=== PATIENT | male | born 1945 | race Hispanic/Latino ===

== ENCOUNTER 2020-06-12 14:38 | Inpatient (IN) | payer MEDICARE, OTHER ==
[2020-06-12] VITALS (7 sets, daily range): BP systolic 89–112; BP diastolic 44–71
[~2020-06-12] VITALS: Ht 177.8 cm; Wt 71.0 kg
[~2020-06-12 14:38] MED LIST: AMLODIPINE BESY10 MG PO; DIOVAN160 MG PO; METFORMIN HCL500 M2 PO; OSTERA TABLET1 EACH PO
[2020-06-12] MEDS ORDERED: SODIUM CHLORIDE 0.9% 1000ML 1,000 ML IV STA (15:08)
[2020-06-12] MEDS: CEFTRIAXONE SOD 1 GM/NS 50 ML 50 ML IV SCH (15:10)
[2020-06-12] MEDS ORDERED: DEXAMETHASONE SOD PHOS 10 MG/1 ML VIAL IV ONE (15:15)
[2020-06-12] MEDS ORDERED: DEXAMETHASONE SOD PHOS INJ 4 MG/ML VIAL IV ONE (15:15)
[2020-06-12 15:26] LABS: BASOPHILS % 0.3 % (0.0-1.0); EOSINOPHILS % 0.1 % (0.0-6.0); HEMATOCRIT 39.7 % (38.2-49.6); LYMPHOCYTES # (AUTO) 0.6 (1.0-3.2); LYMPHOCYTES % 5.4 % (18.0-39.1); MEAN CORPUSCULAR HEMOGLOBIN 28.8 pg (28-32); MEAN CORPUSCULAR HGB CONC 32.7 g/dL (31-35); MEAN CORPUSCULAR VOLUME 87.8 fL (81-99); MONOCYTES # (AUTO) 0.5 (0.2-0.8); MONOCYTES % 4.2 % (4.4-11.3); NEUTROPHILS # (AUTO) 9.6 (2.1-6.9); NEUTROPHILS % 84.3 % (38.7-80.0); PLATELET COUNT 277 x10e3/uL (140-360); RED BLOOD COUNT 4.52 x10e6/uL (4.3-5.7); RED CELL DISTRIBUTION WIDTH 13.7 % (11.7-14.4)
[2020-06-12 15:44] LABS: ALBUMIN 2.6 g/dL (3.5-5.0); ALBUMIN/GLOBULIN RATIO 0.7 (0.8-2.0); ANION GAP 20.3 mmol/L (8-16); CALCIUM 8.7 mg/dL (8.4-10.2); CREATININE, SERUM 1.52 mg/dL (0.72-1.25); POTASSIUM 4.3 mmol/L (3.5-5.1)
[2020-06-12] MEDS: AZITHROMYCIN 500MG/NS 250 ML 250 ML IV SCH (15:45)
[2020-06-12 15:49] LABS: INR 1.15; PROTHROMBIN TIME 15.3 seconds (11.9-14.5)
[2020-06-12 15:50] LABS: CREATINE KINASE MB 0.4 ng/mL (0-5.0); PARTIAL THROMBOPLASTIN TIME 26.3 seconds (23.8-35.5)
[2020-06-12] MEDS ORDERED: HYDROCODONE/CHLORPHENIRAMINE 5 ML LIQCR PO PRN (16:15)
[2020-06-12] MEDS ORDERED: DEXTROSE 50% SYRINGE 50 ML IV PRN (16:15)
[2020-06-12] MEDS ORDERED: ALBUTEROL SULFATE HFA 8GM INHALATION AEROSOL INH PRN (16:15)
[2020-06-12] MEDS ORDERED: INSULIN REGULAR, HUMAN 100 UNIT/1 ML 3ML VIAL IV ONE (16:15)
[2020-06-12] MEDS ORDERED: ZOLPIDEM TARTRATE 5 MG TAB PO PRN (16:15)
[2020-06-12] MEDS ORDERED: INSULIN REGULAR, HUMAN 3ML VL 100 UNIT in SODIUM CHLORIDE 0.45% 100 ML 100 ML IV SCH ×2 (16:15)
[2020-06-12] MEDS: SODIUM CHLORIDE 0.9% 1000ML 1,000 ML IV SCH (16:30)
[2020-06-12] MEDS: ACETAMINOPHEN 325 MG TAB PO PRN (16:32)
[2020-06-12] MEDS: ASCORBIC ACID 500 MG TAB PO SCH (17:00)
[2020-06-12] MEDS: INSULIN REGULAR, HUMAN 3ML VL 100 UNIT in SODIUM CHLORIDE 0.9% 100 ML 100 ML IV SCH ×2 (18:19)
[2020-06-12] MEDS ORDERED: ZIPRASIDONE 20 MG VIAL IM ONE (18:37)
[2020-06-12] MEDS ORDERED: DEXMEDETOMIDINE HCL 200 MCG in SODIUM CHLORIDE 0.9% 50ML 48 ML IV PRN (19:00)
[2020-06-12] MEDS ORDERED: ENOXAPARIN SOD INJ 40 MG/0.4 ML SYR SC SCH (21:00)
[2020-06-12 21:13] LABS: NEUTROPHILS % (MANUAL) 85 % (40-74)
[2020-06-12 21:14] LABS: BAND NEUTROPHILS % (MANUAL) 5 %; LYMPHOCYTES % (MANUAL) 6 % (19-48); MONOCYTES % (MANUAL) 4 % (3.4-9.0); NUCLEATED RED BLOOD CELLS 2
[2020-06-12 21:15] LABS: GIANT PLATELETS FEW; LARGE PLATELETS FEW; PLATELET ESTIMATE ADEQUATE; PLATELET MORPHOLOGY COMMENT FEW LARGE; POLYCHROMASIA FEW
[2020-06-12] MEDS ORDERED: HALOPERIDOL LACTATE 5 MG/ML VIAL IV PRN (21:15)
[2020-06-13] VITALS (26 sets, daily range): BP systolic 91–123; BP diastolic 50–59
[2020-06-13] MEDS ORDERED: MIDAZOLAM HCL 2 MG/2 ML VIAL ONE (00:26)
[2020-06-13] MEDS: MIDAZOLAM HCL 50 MG in SODIUM CHLORIDE 0.9% 100 ML 90 ML IV PRN ×2 (01:00→21:00)
[2020-06-13] MEDS: SODIUM CHLORIDE 0.9% 1000ML 1,000 ML IV SCH (01:50)
[2020-06-13] MEDS ORDERED: NOREPINEPHRINE INJ 4MG/4ML 8 MG in DEXTROSE 5% 250ML 250 ML IV PRN (02:00)
[2020-06-13 02:25] LABS: ABG PCO2 64 mmHg (35-45); ABG PH 7.22 (7.35-7.45); ABG PO2 138 mmHg (80-105)
[2020-06-13 02:26] LABS: ABG HCO3 26 mmol/L (22-26); ABG TCO2 28
[2020-06-13] MEDS: INSULIN REGULAR, HUMAN 3ML VL 100 UNIT in SODIUM CHLORIDE 0.9% 100 ML 100 ML IV SCH ×6 (04:09→19:09)
[2020-06-13 06:38] LABS: BASOPHILS # (AUTO) 0.1 (0.0-0.1); BASOPHILS % 0.5 % (0.0-1.0); EOSINOPHILS % 0.1 % (0.0-6.0); HEMATOCRIT 37.7 % (38.2-49.6); HEMOGLOBIN 11.9 g/dL (14.0-18.0); LYMPHOCYTES # (AUTO) 0.7 (1.0-3.2); LYMPHOCYTES % 3.7 % (18.0-39.1); MEAN CORPUSCULAR HEMOGLOBIN 28.7 pg (28-32); MEAN CORPUSCULAR HGB CONC 31.6 g/dL (31-35); MONOCYTES # (AUTO) 0.7 (0.2-0.8); MONOCYTES % 3.7 % (4.4-11.3); NEUTROPHILS % 86.2 % (38.7-80.0); PLATELET COUNT 296 x10e3/uL (140-360); RED BLOOD COUNT 4.15 x10e6/uL (4.3-5.7)
[2020-06-13 06:59] LABS: CREATINE KINASE 47 IU/L (30-200)
[2020-06-13 07:22] LABS: ALBUMIN 2.3 g/dL (3.5-5.0); ALBUMIN/GLOBULIN RATIO 0.6 (0.8-2.0); ANION GAP 14.5 mmol/L (8-16); CALCIUM 7.9 mg/dL (8.4-10.2); CREATININE, SERUM 1.37 mg/dL (0.72-1.25); POTASSIUM 4.5 mmol/L (3.5-5.1)
[2020-06-13 07:30] LABS: MEAN CORPUSCULAR VOLUME 90.8 fL (81-99)
[2020-06-13 07:51] LABS: CHOL/HDL RATIO 3.9 (3.9-4.7)
[2020-06-13 08:05] LABS: CLARITY,URINE CLEAR (CLEAR); COLOR,URINE YELLOW (YELLOW)
[2020-06-13 08:06] LABS: BILIRUBIN,URINE NEGATIVE (NEGATIVE); KETONES,URINE NEGATIVE (NEGATIVE); LEUKOCYTE ESTERASE ,URINE NEGATIVE (NEGATIVE); NITRITE,URINE NEGATIVE (NEGATIVE); PROTEIN,URINE DIPSTICK 2+ (NEGATIVE); URINE UROBILINOGEN 0.2 mg/dL (0.2 - 1)
[2020-06-13 08:19] LABS: BACTERIA,URINE MANY /HPF; EPITHELIAL CELLS,URINE RARE /LPF; RBC,URINE 0-5 /HPF (0-5); WBC,URINE (MAN) 0-5 /HPF (0-5)
[2020-06-13] MEDS: DEXAMETHASONE SOD PHOS INJ 4 MG/ML VIAL IV SCH (08:20)
[2020-06-13] MEDS: MULTIVITAMINS/MINERALS TAB PO SCH (08:20)
[2020-06-13] MEDS: ZINC SULFATE 220 MG CAP PO SCH (08:20)
[2020-06-13] MEDS: ASCORBIC ACID 500 MG TAB PO SCH ×2 (08:20→16:15)
[2020-06-13] MEDS ORDERED: DEXAMETHASONE SOD PHOS 10 MG/1 ML VIAL IV SCH (09:00)
[2020-06-13] MEDS ORDERED: AMLODIPINE BESYLATE 10 MG TAB PO SCH (09:00)
[2020-06-13 12:17] LABS: LYMPHOCYTES % (MANUAL) 4 % (19-48); MONOCYTES % (MANUAL) 2 % (3.4-9.0); NEUTROPHILS % (MANUAL) 94 % (40-74); NUCLEATED RED BLOOD CELLS 2; PLATELET ESTIMATE ADEQUATE; RBC MORPHOLOGY COMMENT NORMAL
[2020-06-13 12:18] LABS: PLATELET MORPHOLOGY COMMENT FEW EDTA CLUMPING; POIKILOCYTOSIS SLIGHT; POLYCHROMASIA FEW
[2020-06-13 12:19] LABS: GIANT PLATELETS RARE; LARGE PLATELETS FEW
[2020-06-13] MEDS: CEFTRIAXONE SOD 1 GM/NS 50 ML 50 ML IV SCH (14:03)
[2020-06-13] MEDS: AZITHROMYCIN 500MG/NS 250 ML 250 ML IV SCH (14:59)
[2020-06-13 16:15] LABS: ABG HCO3 24 mmol/L (22-26); ABG PCO2 46 mmHg (35-45); ABG PH 7.33 (7.35-7.45); ABG PO2 92 mmHg (80-105); ABG TCO2 25
[2020-06-13] MEDS ORDERED: VECURONIUM BROMIDE FOR INJ 20 MG VIAL ONE (18:06)
[2020-06-13] MEDS ORDERED: SUCCINYLCHOLINE CHLORIDE 20 MG/ML 10ML VIAL ONE (18:06)
[2020-06-13] MEDS ORDERED: WATER STERILE 10 ML VIAL ONE (18:06)
[2020-06-13] MEDS ORDERED: ETOMIDATE 2 MG/ML 10 ML INJ IV ONE (18:06)
[2020-06-13] MEDS: ENOXAPARIN SOD INJ 40 MG/0.4 ML SYR SC SCH (20:53)
[2020-06-13] MEDS ORDERED: ENOXAPARIN SOD INJ 40 MG/0.4 ML SYR SC SCH (21:00)
[2020-06-14] VITALS (25 sets, daily range): BP systolic 93–126; BP diastolic 51–89
[2020-06-14 04:47] LABS: BASOPHILS # (AUTO) 0.1 (0.0-0.1); BASOPHILS % 0.4 % (0.0-1.0); HEMATOCRIT 38.4 % (38.2-49.6); HEMOGLOBIN 11.9 g/dL (14.0-18.0); LYMPHOCYTES # (AUTO) 0.4 (1.0-3.2); MEAN CORPUSCULAR HEMOGLOBIN 28.2 pg (28-32); MONOCYTES # (AUTO) 0.4 (0.2-0.8); MONOCYTES % 3.1 % (4.4-11.3); NEUTROPHILS # (AUTO) 12.7 (2.1-6.9); NEUTROPHILS % 90.4 % (38.7-80.0); PLATELET COUNT 216 x10e3/uL (140-360); RED BLOOD COUNT 4.22 x10e6/uL (4.3-5.7); RED CELL DISTRIBUTION WIDTH 14.3 % (11.7-14.4)
[2020-06-14 05:06] LABS: ALANINE AMINOTRANSFERASE 52 IU/L (0-55); ALBUMIN 2.2 g/dL (3.5-5.0); ALBUMIN/GLOBULIN RATIO 0.6 (0.8-2.0); ALKALINE PHOSPHATASE 60 IU/L (40-150); ANION GAP 11.4 mmol/L (8-16); BLOOD UREA NITROGEN 40 mg/dL (7-26); BUN/CREATININE RATIO 42 (6-25); CALCIUM 7.7 mg/dL (8.4-10.2); CARBON DIOXIDE 27 mmol/L (22-29); CHLORIDE 111 mmol/L (98-107); CREATININE, SERUM 0.95 mg/dL (0.72-1.25); EST GLOMERULAR FILTRATION RATE > 60 ML/MIN (60-); GLUCOSE 186 mg/dL (74-118); POTASSIUM 4.4 mmol/L (3.5-5.1); SODIUM 145 mmol/L (136-145)
[2020-06-14] MEDS: ZINC SULFATE 220 MG CAP PO SCH (08:50)
[2020-06-14] MEDS: DEXAMETHASONE SOD PHOS INJ 4 MG/ML VIAL IV SCH (08:50)
[2020-06-14] MEDS: MULTIVITAMINS/MINERALS TAB PO SCH (08:50)
[2020-06-14] MEDS: ASCORBIC ACID 500 MG TAB PO SCH ×2 (08:50→16:00)
[2020-06-14 09:37] LABS: ABG HCO3 28 mmol/L (22-26); ABG PCO2 46 mmHg (35-45); ABG PH 7.35 (7.35-7.45); ABG PO2 180 mmHg (80-105); ABG TCO2 30
[2020-06-14] MEDS: MIDAZOLAM HCL 50 MG in SODIUM CHLORIDE 0.9% 100 ML 90 ML IV PRN (10:59)
[2020-06-14] MEDS ORDERED: FUROSEMIDE INJ 10 MG/ML 2 ML VIAL IV ONE (11:00)
[2020-06-14 11:19] LABS: MONOCYTES % (MANUAL) 5 % (3.4-9.0); MYELOCYTES % (MANUAL) 1 % (0-0); NEUTROPHILS % (MANUAL) 94 % (40-74); NUCLEATED RED BLOOD CELLS 1
[2020-06-14 11:20] LABS: OVALOCYTES FEW; POLYCHROMASIA FEW
[2020-06-14 11:21] LABS: PLATELET ESTIMATE ADEQUATE; PLATELET MORPHOLOGY COMMENT NORMAL; POIKILOCYTOSIS SLIGHT; RBC MORPHOLOGY COMMENT NORMAL
[2020-06-14] MEDS: FENTANYL 2000MCG/NS 250 250 ML IV PRN (11:56)
[2020-06-14] MEDS ORDERED: ALBUMIN 25% 25GM 100ML 0.25 GM/ML BTL IV SCH (12:00)
[2020-06-14] MEDS: ALBUMIN 25% 12.5GM 50ML 100 ML IV SCH ×3 (12:05→23:08)
[2020-06-14] MEDS: CEFTRIAXONE SOD 1 GM/NS 50 ML 50 ML IV SCH (15:52)
[2020-06-14 16:18] LABS: ABG HCO3 28 mmol/L (22-26); ABG PCO2 38 mmHg (35-45); ABG PH 7.48 (7.35-7.45); ABG PO2 108 mmHg (80-105); ABG TCO2 29
[2020-06-14] MEDS: AZITHROMYCIN 500MG/NS 250 ML 250 ML IV SCH (16:28)
[2020-06-14] MEDS: ENOXAPARIN SOD INJ 40 MG/0.4 ML SYR SC SCH (20:27)
[2020-06-14] MEDS: INSULIN REGULAR, HUMAN 3ML VL 100 UNIT in SODIUM CHLORIDE 0.9% 100 ML 100 ML IV SCH ×2 (21:22)
[2020-06-14 22:40] LABS: ABG PCO2 49 mmHg (35-45); ABG PH 7.37 (7.35-7.45); ABG PO2 67 mmHg (80-105)
[2020-06-14 22:41] LABS: ABG HCO3 29 mmol/L (22-26); ABG TCO2 30
[2020-06-15] VITALS (24 sets, daily range): BP systolic 101–130; BP diastolic 46–76
[2020-06-15] MEDS: INSULIN REGULAR, HUMAN 3ML VL 100 UNIT in SODIUM CHLORIDE 0.9% 100 ML 100 ML IV SCH ×4 (00:03→23:26)
[2020-06-15 05:00] LABS: BASOPHILS % 0.1 % (0.0-1.0); HEMOGLOBIN 10.9 g/dL (14.0-18.0); LYMPHOCYTES # (AUTO) 0.4 (1.0-3.2); MEAN CORPUSCULAR HGB CONC 31.1 g/dL (31-35); MEAN CORPUSCULAR VOLUME 93.1 fL (81-99); MONOCYTES # (AUTO) 0.4 (0.2-0.8); MONOCYTES % 5.3 % (4.4-11.3); NEUTROPHILS # (AUTO) 6.3 (2.1-6.9); NEUTROPHILS % 87.7 % (38.7-80.0); PLATELET COUNT 140 x10e3/uL (140-360); RED BLOOD COUNT 3.76 x10e6/uL (4.3-5.7); RED CELL DISTRIBUTION WIDTH 14.2 % (11.7-14.4)
[2020-06-15 05:22] LABS: ALANINE AMINOTRANSFERASE 29 IU/L (0-55); ALBUMIN/GLOBULIN RATIO 1.1 (0.8-2.0); ALKALINE PHOSPHATASE 44 IU/L (40-150); ANION GAP 12.8 mmol/L (8-16); BLOOD UREA NITROGEN 36 mg/dL (7-26); BUN/CREATININE RATIO 41 (6-25); CALCIUM 8.1 mg/dL (8.4-10.2); CARBON DIOXIDE 29 mmol/L (22-29); CHLORIDE 114 mmol/L (98-107); CREATININE, SERUM 0.87 mg/dL (0.72-1.25); EST GLOMERULAR FILTRATION RATE > 60 ML/MIN (60-); GLUCOSE 189 mg/dL (74-118); POTASSIUM 4.8 mmol/L (3.5-5.1); SODIUM 151 mmol/L (136-145)
[2020-06-15] MEDS: MULTIVITAMINS/MINERALS TAB PO SCH (08:26)
[2020-06-15] MEDS: ZINC SULFATE 220 MG CAP PO SCH (08:26)
[2020-06-15] MEDS: ASCORBIC ACID 500 MG TAB PO SCH ×2 (08:27→16:15)
[2020-06-15] MEDS: DEXAMETHASONE SOD PHOS INJ 4 MG/ML VIAL IV SCH (08:28)
[2020-06-15 08:30] LABS: CREATINE KINASE MB 0.3 ng/mL (0-5.0)
[2020-06-15 09:15] LABS: ABG HCO3 28 mmol/L (22-26); ABG PCO2 42 mmHg (35-45); ABG PH 7.44 (7.35-7.45); ABG PO2 71 mmHg (80-105); ABG TCO2 30
[2020-06-15] MEDS ORDERED: MIDAZOLAM HCL 2 MG/2 ML VIAL ONE (10:44)
[2020-06-15] MEDS: ENOXAPARIN SOD INJ 40 MG/0.4 ML SYR SC SCH ×2 (11:03→21:09)
[2020-06-15] MEDS: FENTANYL 2000MCG/NS 250 250 ML IV PRN (12:57)
[2020-06-15] MEDS: MIDAZOLAM HCL 50 MG in SODIUM CHLORIDE 0.9% 100 ML 90 ML IV PRN (13:08)
[2020-06-15] MEDS: CEFTRIAXONE SOD 1 GM/NS 50 ML 50 ML IV SCH (15:20)
[2020-06-15] MEDS: AZITHROMYCIN 500MG/NS 250 ML 250 ML IV SCH (16:12)
[2020-06-15 20:18] LABS: ABG HCO3 29 mmol/L (22-26); ABG PCO2 43 mmHg (35-45); ABG PH 7.44 (7.35-7.45); ABG PO2 57 mmHg (80-105); ABG TCO2 31
[2020-06-16] VITALS (24 sets, daily range): BP systolic 95–131; BP diastolic 49–66
[2020-06-16] MEDS: MIDAZOLAM HCL 50 MG in SODIUM CHLORIDE 0.9% 100 ML 90 ML IV PRN ×2 (03:21→15:21)
[2020-06-16] MEDS: FENTANYL 2000MCG/NS 250 250 ML IV PRN ×2 (03:22→15:21)
[2020-06-16 05:00] LABS: HEMATOCRIT 35.2 % (38.2-49.6); HEMOGLOBIN 10.5 g/dL (14.0-18.0); LYMPHOCYTES # (AUTO) 0.2 (1.0-3.2); LYMPHOCYTES % 5.1 % (18.0-39.1); MEAN CORPUSCULAR HEMOGLOBIN 28.1 pg (28-32); MEAN CORPUSCULAR HGB CONC 29.8 g/dL (31-35); MEAN CORPUSCULAR VOLUME 94.1 fL (81-99); MONOCYTES # (AUTO) 0.2 (0.2-0.8); MONOCYTES % 3.6 % (4.4-11.3); NEUTROPHILS % 89.3 % (38.7-80.0); PLATELET COUNT 130 x10e3/uL (140-360); RED BLOOD COUNT 3.74 x10e6/uL (4.3-5.7); RED CELL DISTRIBUTION WIDTH 14.3 % (11.7-14.4)
[2020-06-16 05:18] LABS: ALANINE AMINOTRANSFERASE 23 IU/L (0-55); ALBUMIN 2.5 g/dL (3.5-5.0); ALBUMIN/GLOBULIN RATIO 0.9 (0.8-2.0); ALKALINE PHOSPHATASE 47 IU/L (40-150); ANION GAP 9.7 mmol/L (8-16); BLOOD UREA NITROGEN 34 mg/dL (7-26); BUN/CREATININE RATIO 47 (6-25); CARBON DIOXIDE 30 mmol/L (22-29); CHLORIDE 119 mmol/L (98-107); CREATININE, SERUM 0.72 mg/dL (0.72-1.25); EST GLOMERULAR FILTRATION RATE > 60 ML/MIN (60-); GLUCOSE 120 mg/dL (74-118); POTASSIUM 4.7 mmol/L (3.5-5.1); SODIUM 154 mmol/L (136-145)
[2020-06-16] MEDS: INSULIN REGULAR, HUMAN 3ML VL 100 UNIT in SODIUM CHLORIDE 0.9% 100 ML 100 ML IV SCH ×6 (08:12→17:52)
[2020-06-16] MEDS: ZINC SULFATE 220 MG CAP PO SCH (09:21)
[2020-06-16] MEDS: MULTIVITAMINS/MINERALS TAB PO SCH (09:21)
[2020-06-16] MEDS: DEXAMETHASONE SOD PHOS INJ 4 MG/ML VIAL IV SCH (09:21)
[2020-06-16] MEDS: ASCORBIC ACID 500 MG TAB PO SCH ×2 (09:21→16:15)
[2020-06-16] MEDS: ENOXAPARIN SOD INJ 40 MG/0.4 ML SYR SC SCH ×2 (09:37→20:07)
[2020-06-16] MEDS ORDERED: VECURONIUM BROMIDE FOR INJ 20 MG VIAL IV STA (09:56)
[2020-06-16 11:35] LABS: ABG HCO3 29 mmol/L (22-26); ABG PCO2 43 mmHg (35-45); ABG PH 7.43 (7.35-7.45); ABG PO2 51 mmHg (80-105)
[2020-06-16 11:36] LABS: ABG TCO2 30
[2020-06-16] MEDS: CEFTRIAXONE SOD 1 GM/NS 50 ML 50 ML IV SCH (15:22)
[2020-06-16] MEDS: AZITHROMYCIN 500MG/NS 250 ML 250 ML IV SCH (16:01)
[2020-06-16] MEDS: ACETAMINOPHEN 325 MG TAB PO PRN (21:00)
[2020-06-17] VITALS (25 sets, daily range): BP systolic 99–168; BP diastolic 50–72
[2020-06-17] MEDS: FENTANYL 2000MCG/NS 250 250 ML IV PRN (05:36)
[2020-06-17 06:12] LABS: EOSINOPHILS % 0.2 % (0.0-6.0); HEMATOCRIT 35.8 % (38.2-49.6); HEMOGLOBIN 10.7 g/dL (14.0-18.0); LYMPHOCYTES # (AUTO) 0.3 (1.0-3.2); LYMPHOCYTES % 6.4 % (18.0-39.1); MEAN CORPUSCULAR HEMOGLOBIN 29.1 pg (28-32); MEAN CORPUSCULAR HGB CONC 29.9 g/dL (31-35); MEAN CORPUSCULAR VOLUME 97.3 fL (81-99); MONOCYTES # (AUTO) 0.1 (0.2-0.8); MONOCYTES % 2.3 % (4.4-11.3); NEUTROPHILS # (AUTO) 3.9 (2.1-6.9); NEUTROPHILS % 90.4 % (38.7-80.0); PLATELET COUNT 99 x10e3/uL (140-360); RED BLOOD COUNT 3.68 x10e6/uL (4.3-5.7); RED CELL DISTRIBUTION WIDTH 14.4 % (11.7-14.4)
[2020-06-17 06:24] LABS: ALANINE AMINOTRANSFERASE 21 IU/L (0-55); ALBUMIN 2.2 g/dL (3.5-5.0); ALBUMIN/GLOBULIN RATIO 0.8 (0.8-2.0); ALKALINE PHOSPHATASE 56 IU/L (40-150); ANION GAP 10.1 mmol/L (8-16); BLOOD UREA NITROGEN 35 mg/dL (7-26); BUN/CREATININE RATIO 40 (6-25); CALCIUM 8.1 mg/dL (8.4-10.2); CARBON DIOXIDE 30 mmol/L (22-29); CHLORIDE 117 mmol/L (98-107); CREATININE, SERUM 0.88 mg/dL (0.72-1.25); EST GLOMERULAR FILTRATION RATE > 60 ML/MIN (60-); GLUCOSE 238 mg/dL (74-118); POTASSIUM 5.1 mmol/L (3.5-5.1); SODIUM 152 mmol/L (136-145)
[2020-06-17] MEDS: INSULIN REGULAR, HUMAN 3ML VL 100 UNIT in SODIUM CHLORIDE 0.9% 100 ML 100 ML IV SCH ×6 (07:58→17:55)
[2020-06-17] MEDS: DEXAMETHASONE SOD PHOS INJ 4 MG/ML VIAL IV SCH (09:14)
[2020-06-17] MEDS: MULTIVITAMINS/MINERALS TAB PO SCH (09:14)
[2020-06-17] MEDS: ASCORBIC ACID 500 MG TAB PO SCH ×2 (09:14→20:59)
[2020-06-17] MEDS: ENOXAPARIN SOD INJ 40 MG/0.4 ML SYR SC SCH ×2 (09:15→20:59)
[2020-06-17] MEDS: ZINC SULFATE 220 MG CAP PO SCH (09:15)
[2020-06-17 10:25] LABS: ABG HCO3 29 mmol/L (22-26); ABG PCO2 52 mmHg (35-45); ABG PH 7.36 (7.35-7.45); ABG PO2 74 mmHg (80-105); ABG TCO2 31
[2020-06-17] MEDS: MIDAZOLAM HCL 50 MG in SODIUM CHLORIDE 0.9% 100 ML 90 ML IV PRN ×3 (10:32)
[2020-06-17] MEDS: MEROPENEM 1GM 100 ML IV SCH ×2 (12:46→22:10)
[2020-06-17] MEDS: ACETAMINOPHEN 325 MG TAB PO PRN (19:00)
[2020-06-18] VITALS (26 sets, daily range): BP systolic 100–143; BP diastolic 53–88
[2020-06-18] MEDS: FENTANYL 2000MCG/NS 250 250 ML IV PRN (02:59)
[2020-06-18] MEDS: MEROPENEM 1GM 100 ML IV SCH (05:49)
[2020-06-18] MEDS: MIDAZOLAM HCL 50 MG in SODIUM CHLORIDE 0.9% 100 ML 90 ML IV PRN (05:54)
[2020-06-18 06:04] LABS: EOSINOPHILS % 0.2 % (0.0-6.0); HEMATOCRIT 35.5 % (38.2-49.6); HEMOGLOBIN 10.5 g/dL (14.0-18.0); LYMPHOCYTES # (AUTO) 0.2 (1.0-3.2); LYMPHOCYTES % 5.7 % (18.0-39.1); MEAN CORPUSCULAR HEMOGLOBIN 28.3 pg (28-32); MEAN CORPUSCULAR HGB CONC 29.6 g/dL (31-35); MEAN CORPUSCULAR VOLUME 95.7 fL (81-99); MONOCYTES # (AUTO) 0.2 (0.2-0.8); NEUTROPHILS # (AUTO) 3.8 (2.1-6.9); NEUTROPHILS % 89.4 % (38.7-80.0); PLATELET COUNT 121 x10e3/uL (140-360); RED BLOOD COUNT 3.71 x10e6/uL (4.3-5.7); RED CELL DISTRIBUTION WIDTH 14.3 % (11.7-14.4)
[2020-06-18 06:22] LABS: ALANINE AMINOTRANSFERASE 25 IU/L (0-55); ALBUMIN/GLOBULIN RATIO 0.6 (0.8-2.0); ALKALINE PHOSPHATASE 52 IU/L (40-150); ANION GAP 10.3 mmol/L (8-16); BLOOD UREA NITROGEN 35 mg/dL (7-26); BUN/CREATININE RATIO 46 (6-25); CALCIUM 8.3 mg/dL (8.4-10.2); CARBON DIOXIDE 31 mmol/L (22-29); CHLORIDE 116 mmol/L (98-107); CREATININE, SERUM 0.76 mg/dL (0.72-1.25); EST GLOMERULAR FILTRATION RATE > 60 ML/MIN (60-); GLUCOSE 203 mg/dL (74-118); POTASSIUM 5.3 mmol/L (3.5-5.1); SODIUM 152 mmol/L (136-145)
[2020-06-18] MEDS: DEXAMETHASONE SOD PHOS INJ 4 MG/ML VIAL IV SCH (08:08)
[2020-06-18] MEDS: ENOXAPARIN SOD INJ 40 MG/0.4 ML SYR SC SCH ×2 (08:08→21:10)
[2020-06-18] MEDS: ASCORBIC ACID 500 MG TAB PO SCH ×2 (08:08→21:10)
[2020-06-18] MEDS: MULTIVITAMINS/MINERALS TAB PO SCH (08:08)
[2020-06-18] MEDS: ZINC SULFATE 220 MG CAP PO SCH (08:08)
[2020-06-18] MEDS: INSULIN REGULAR, HUMAN 3ML VL 100 UNIT in SODIUM CHLORIDE 0.9% 100 ML 100 ML IV SCH ×4 (08:33→11:52)
[2020-06-18] MEDS ORDERED: SOD POLYSTYRENE SULFONATE SUSP 15 GM/60 ML BTL PO ONE (09:30)
[2020-06-18] MEDS: BISACODYL 10 MG SUPP PR PRN (10:12)
[2020-06-18] MEDS ORDERED: CEFEPIME HCL 2 GM VIAL IV SCH (14:00)
[2020-06-18 14:41] LABS: ABG HCO3 31 mmol/L (22-26); ABG PCO2 56 mmHg (35-45); ABG PH 7.35 (7.35-7.45); ABG PO2 77 mmHg (80-105); ABG TCO2 32
[2020-06-18 15:09] LABS: ANION GAP 12.1 mmol/L (8-16); BLOOD UREA NITROGEN 35 mg/dL (7-26); BUN/CREATININE RATIO 46 (6-25); CALCIUM 8.2 mg/dL (8.4-10.2); CARBON DIOXIDE 29 mmol/L (22-29); CHLORIDE 114 mmol/L (98-107); CREATININE, SERUM 0.76 mg/dL (0.72-1.25); EST GLOMERULAR FILTRATION RATE > 60 ML/MIN (60-); GLUCOSE 260 mg/dL (74-118); POTASSIUM 5.1 mmol/L (3.5-5.1); SODIUM 150 mmol/L (136-145)
[2020-06-18] MEDS: CEFEPIME 2 GM/NS 0.9% 100 ML 100 ML IV SCH ×2 (15:25→21:10)
[2020-06-18] MEDS ORDERED: INSULIN REGULAR, HUMAN 100 UNIT/1 ML 3ML VIAL SQ SCH (16:30)
[2020-06-18] MEDS: ALBUMIN 25% 25GM 100ML 100 ML IV SCH ×2 (17:30→23:28)
[2020-06-18] MEDS: FUROSEMIDE INJ 10 MG/ML 4 ML VIAL IV SCH (17:31)
[2020-06-18] MEDS: INSULIN REGULAR, HUMAN 100 UNIT/1 ML 3ML VIAL SQ SCH ×2 (17:39→23:29)
[2020-06-18] MEDS ORDERED: ALBUMIN 25% 25GM 100ML 0.25 GM/ML BTL IV SCH (18:00)
[2020-06-18] MEDS ORDERED: INSULIN GLARGINE 100 UNITS/ML VIAL SQ SCH (21:00)
[2020-06-19] VITALS (26 sets, daily range): BP systolic 93–145; BP diastolic 48–92
[2020-06-19] MEDS: MIDAZOLAM HCL 50 MG in SODIUM CHLORIDE 0.9% 100 ML 90 ML IV PRN ×2 (00:09→12:39)
[2020-06-19] MEDS: FENTANYL 2000MCG/NS 250 250 ML IV PRN ×2 (00:09→20:23)
[2020-06-19] MEDS: ACETAMINOPHEN 325 MG TAB PO PRN ×2 (04:07→04:50)
[2020-06-19 05:22] LABS: HEMATOCRIT 30.9 % (38.2-49.6); HEMOGLOBIN 9.3 g/dL (14.0-18.0); LYMPHOCYTES # (AUTO) 0.2 (1.0-3.2); MEAN CORPUSCULAR HGB CONC 30.1 g/dL (31-35); MEAN CORPUSCULAR VOLUME 96.3 fL (81-99); MONOCYTES # (AUTO) 0.2 (0.2-0.8); MONOCYTES % 5.7 % (4.4-11.3); NEUTROPHILS # (AUTO) 2.9 (2.1-6.9); NEUTROPHILS % 87.4 % (38.7-80.0); PLATELET COUNT 128 x10e3/uL (140-360); RED BLOOD COUNT 3.21 x10e6/uL (4.3-5.7); RED CELL DISTRIBUTION WIDTH 13.9 % (11.7-14.4)
[2020-06-19] MEDS: ALBUMIN 25% 25GM 100ML 100 ML IV SCH ×2 (05:31→12:38)
[2020-06-19] MEDS: INSULIN REGULAR, HUMAN 100 UNIT/1 ML 3ML VIAL SQ SCH ×3 (05:34→18:05)
[2020-06-19] MEDS: FUROSEMIDE INJ 10 MG/ML 4 ML VIAL IV SCH ×2 (05:35→17:20)
[2020-06-19 05:58] LABS: ALANINE AMINOTRANSFERASE 33 IU/L (0-55); ALBUMIN 2.7 g/dL (3.5-5.0); ALKALINE PHOSPHATASE 44 IU/L (40-150); ANION GAP 12.7 mmol/L (8-16); BLOOD UREA NITROGEN 42 mg/dL (7-26); BUN/CREATININE RATIO 53 (6-25); CALCIUM 8.5 mg/dL (8.4-10.2); CARBON DIOXIDE 32 mmol/L (22-29); CHLORIDE 111 mmol/L (98-107); EST GLOMERULAR FILTRATION RATE > 60 ML/MIN (60-); GLUCOSE 253 mg/dL (74-118); POTASSIUM 4.7 mmol/L (3.5-5.1); SODIUM 151 mmol/L (136-145)
[2020-06-19] MEDS: CEFEPIME 2 GM/NS 0.9% 100 ML 100 ML IV SCH ×3 (06:33→21:07)
[2020-06-19] MEDS ORDERED: INSULIN GLARGINE 100 UNITS/ML VIAL SQ NR (08:09)
[2020-06-19 08:15] LABS: ABG PCO2 55 mmHg (35-45); ABG PH 7.38 (7.35-7.45)
[2020-06-19 08:16] LABS: ABG HCO3 33 mmol/L (22-26); ABG PO2 73 mmHg (80-105); ABG TCO2 35
[2020-06-19] MEDS: MULTIVITAMINS/MINERALS TAB PO SCH (08:51)
[2020-06-19] MEDS: ASCORBIC ACID 500 MG TAB PO SCH ×2 (08:51→20:24)
[2020-06-19] MEDS: ENOXAPARIN SOD INJ 40 MG/0.4 ML SYR SC SCH ×2 (08:51→20:24)
[2020-06-19] MEDS: ZINC SULFATE 220 MG CAP PO SCH (08:51)
[2020-06-19] MEDS: DEXAMETHASONE SOD PHOS INJ 4 MG/ML VIAL IV SCH (08:51)
[2020-06-19] MEDS ORDERED: INSULIN GLARGINE 100 UNITS/ML VIAL SQ SCH (21:00)
[2020-06-20] VITALS (26 sets, daily range): BP systolic 100–139; BP diastolic 54–83
[2020-06-20] MEDS: INSULIN REGULAR, HUMAN 100 UNIT/1 ML 3ML VIAL SQ SCH ×5 (00:16→23:49)
[2020-06-20] MEDS ORDERED: INSULIN GLARGINE 100 UNITS/ML VIAL SQ STA (02:19)
[2020-06-20] MEDS: MIDAZOLAM HCL 5MG/ML 10ML VIAL 100 ML IV PRN ×2 (02:37→08:23)
[2020-06-20] MEDS: CEFEPIME 2 GM/NS 0.9% 100 ML 100 ML IV SCH ×3 (05:24→21:41)
[2020-06-20 06:43] LABS: BASOPHILS % 0.3 % (0.0-1.0); EOSINOPHILS % 0.3 % (0.0-6.0); HEMATOCRIT 30.4 % (38.2-49.6); HEMOGLOBIN 9.7 g/dL (14.0-18.0); LYMPHOCYTES # (AUTO) 0.3 (1.0-3.2); LYMPHOCYTES % 7.4 % (18.0-39.1); MEAN CORPUSCULAR HEMOGLOBIN 31.3 pg (28-32); MEAN CORPUSCULAR HGB CONC 31.9 g/dL (31-35); MEAN CORPUSCULAR VOLUME 98.1 fL (81-99); MONOCYTES # (AUTO) 0.3 (0.2-0.8); MONOCYTES % 6.9 % (4.4-11.3); NEUTROPHILS # (AUTO) 3.2 (2.1-6.9); NEUTROPHILS % 84.3 % (38.7-80.0); PLATELET COUNT 123 x10e3/uL (140-360); RED CELL DISTRIBUTION WIDTH 14.4 % (11.7-14.4)
[2020-06-20 07:29] LABS: ALANINE AMINOTRANSFERASE 29 IU/L (0-55); ALBUMIN/GLOBULIN RATIO 1.1 (0.8-2.0); ALKALINE PHOSPHATASE 41 IU/L (40-150); ANION GAP 12.4 mmol/L (8-16); BLOOD UREA NITROGEN 47 mg/dL (7-26); BUN/CREATININE RATIO 61 (6-25); CARBON DIOXIDE 34 mmol/L (22-29); CHLORIDE 106 mmol/L (98-107); CREATININE, SERUM 0.77 mg/dL (0.72-1.25); EST GLOMERULAR FILTRATION RATE > 60 ML/MIN (60-); GLUCOSE 223 mg/dL (74-118); POTASSIUM 4.4 mmol/L (3.5-5.1); SODIUM 148 mmol/L (136-145)
[2020-06-20 08:15] LABS: ABG HCO3 35 mmol/L (22-26); ABG PCO2 55 mmHg (35-45); ABG PH 7.41 (7.35-7.45); ABG PO2 70 mmHg (80-105); ABG TCO2 36
[2020-06-20] MEDS: ZINC SULFATE 220 MG CAP PO SCH (08:19)
[2020-06-20] MEDS: ENOXAPARIN SOD INJ 40 MG/0.4 ML SYR SC SCH ×2 (08:19→20:07)
[2020-06-20] MEDS: MULTIVITAMINS/MINERALS TAB PO SCH (08:19)
[2020-06-20] MEDS: DEXAMETHASONE SOD PHOS INJ 4 MG/ML VIAL IV SCH (08:19)
[2020-06-20] MEDS: ASCORBIC ACID 500 MG TAB PO SCH ×2 (08:19→20:07)
[2020-06-20] MEDS: FENTANYL 2000MCG/NS 250 250 ML IV PRN (08:20)
[2020-06-20] MEDS ORDERED: FLUCONAZOLE 200 MG/100 ML 100 ML IV SCH (13:00)
[2020-06-20] MEDS ORDERED: INSULIN GLARGINE 100 UNITS/ML VIAL SQ SCH (21:00)
[2020-06-21] VITALS (23 sets, daily range): BP systolic 93–153; BP diastolic 50–81
[2020-06-21] MEDS: CEFEPIME 2 GM/NS 0.9% 100 ML 100 ML IV SCH ×2 (05:03→17:18)
[2020-06-21] MEDS: MIDAZOLAM HCL 5MG/ML 10ML VIAL 100 ML IV PRN ×2 (05:05→12:42)
[2020-06-21 05:14] LABS: BASOPHILS % 0.3 % (0.0-1.0); EOSINOPHILS % 0.8 % (0.0-6.0); HEMATOCRIT 31.7 % (38.2-49.6); HEMOGLOBIN 9.6 g/dL (14.0-18.0); LYMPHOCYTES # (AUTO) 0.3 (1.0-3.2); LYMPHOCYTES % 8.5 % (18.0-39.1); MEAN CORPUSCULAR HEMOGLOBIN 29.3 pg (28-32); MEAN CORPUSCULAR HGB CONC 30.3 g/dL (31-35); MEAN CORPUSCULAR VOLUME 96.6 fL (81-99); MONOCYTES # (AUTO) 0.3 (0.2-0.8); MONOCYTES % 6.3 % (4.4-11.3); NEUTROPHILS # (AUTO) 3.3 (2.1-6.9); NEUTROPHILS % 83.6 % (38.7-80.0); PLATELET COUNT 140 x10e3/uL (140-360); RED BLOOD COUNT 3.28 x10e6/uL (4.3-5.7); RED CELL DISTRIBUTION WIDTH 13.6 % (11.7-14.4)
[2020-06-21 05:21] LABS: ALANINE AMINOTRANSFERASE 29 IU/L (0-55); ALBUMIN 2.5 g/dL (3.5-5.0); ALBUMIN/GLOBULIN RATIO 0.9 (0.8-2.0); ALKALINE PHOSPHATASE 41 IU/L (40-150); ANION GAP 11.7 mmol/L (8-16); BLOOD UREA NITROGEN 39 mg/dL (7-26); BUN/CREATININE RATIO 58 (6-25); CALCIUM 8.8 mg/dL (8.4-10.2); CARBON DIOXIDE 34 mmol/L (22-29); CHLORIDE 107 mmol/L (98-107); CREATININE, SERUM 0.67 mg/dL (0.72-1.25); EST GLOMERULAR FILTRATION RATE > 60 ML/MIN (60-); GLUCOSE 195 mg/dL (74-118); POTASSIUM 4.7 mmol/L (3.5-5.1); SODIUM 148 mmol/L (136-145)
[2020-06-21] MEDS: INSULIN REGULAR, HUMAN 100 UNIT/1 ML 3ML VIAL SQ SCH ×4 (05:53→22:47)
[2020-06-21] MEDS: ENOXAPARIN SOD INJ 40 MG/0.4 ML SYR SC SCH ×2 (08:52→20:22)
[2020-06-21] MEDS: ZINC SULFATE 220 MG CAP PO SCH (08:52)
[2020-06-21] MEDS: MULTIVITAMINS/MINERALS TAB PO SCH (08:52)
[2020-06-21] MEDS: ASCORBIC ACID 500 MG TAB PO SCH ×2 (08:52→20:22)
[2020-06-21 09:37] LABS: ABG HCO3 35 mmol/L (22-26); ABG PCO2 55 mmHg (35-45); ABG PH 7.42 (7.35-7.45); ABG PO2 66 mmHg (80-105); ABG TCO2 37
[2020-06-21] MEDS: FUROSEMIDE INJ 10 MG/ML 4 ML VIAL IV SCH ×2 (10:11→20:22)
[2020-06-21] MEDS: ALBUMIN 25% 25GM 100ML 100 ML IV SCH ×3 (10:11→22:14)
[2020-06-21] MEDS ORDERED: ALBUMIN 25% 25GM 100ML 0.25 GM/ML BTL IV SCH (12:00)
[2020-06-21] MEDS: FENTANYL 2000MCG/NS 250 250 ML IV PRN (12:41)
[2020-06-21] MEDS ORDERED: VECURONIUM BROMIDE FOR INJ 20 MG VIAL IV ONE (13:45)
[2020-06-21] MEDS ORDERED: MIDAZOLAM HCL 5MG/ML 10ML VIAL 100 ML BAG IV ONE (14:03)
[2020-06-21] MEDS ORDERED: FENTANYL 2,000 MCG/250 ML BAG ONE (14:03)
[2020-06-21] MEDS: INSULIN GLARGINE 100 UNITS/ML VIAL SQ SCH (20:33)
[2020-06-22] VITALS (27 sets, daily range): BP systolic 98–147; BP diastolic 50–81
[2020-06-22] MEDS: CEFEPIME 2 GM/NS 0.9% 100 ML 100 ML IV SCH ×3 (00:22→15:49)
[2020-06-22] MEDS: MIDAZOLAM HCL 5MG/ML 10ML VIAL 100 ML IV PRN ×3 (01:09→22:30)
[2020-06-22] MEDS: FENTANYL 2000MCG/NS 250 250 ML IV PRN (03:25)
[2020-06-22 04:55] LABS: EOSINOPHILS # (AUTO) 0.2 (0.0-0.4); EOSINOPHILS % 2.2 % (0.0-6.0); HEMATOCRIT 32.2 % (38.2-49.6); HEMOGLOBIN 9.7 g/dL (14.0-18.0); LYMPHOCYTES # (AUTO) 0.4 (1.0-3.2); LYMPHOCYTES % 5.1 % (18.0-39.1); MEAN CORPUSCULAR HGB CONC 30.1 g/dL (31-35); MEAN CORPUSCULAR VOLUME 92.8 fL (81-99); MONOCYTES # (AUTO) 0.2 (0.2-0.8); MONOCYTES % 3.5 % (4.4-11.3); NEUTROPHILS # (AUTO) 6.1 (2.1-6.9); NEUTROPHILS % 88.3 % (38.7-80.0); PLATELET COUNT 139 x10e3/uL (140-360); RED BLOOD COUNT 3.47 x10e6/uL (4.3-5.7); RED CELL DISTRIBUTION WIDTH 13.5 % (11.7-14.4)
[2020-06-22 05:15] LABS: ALANINE AMINOTRANSFERASE 22 IU/L (0-55); ALBUMIN 3.3 g/dL (3.5-5.0); ALBUMIN/GLOBULIN RATIO 1.3 (0.8-2.0); ALKALINE PHOSPHATASE 37 IU/L (40-150); BLOOD UREA NITROGEN 36 mg/dL (7-26); BUN/CREATININE RATIO 60 (6-25); CARBON DIOXIDE 36 mmol/L (22-29); CHLORIDE 102 mmol/L (98-107); EST GLOMERULAR FILTRATION RATE > 60 ML/MIN (60-); GLUCOSE 124 mg/dL (74-118); SODIUM 147 mmol/L (136-145)
[2020-06-22] MEDS: INSULIN REGULAR, HUMAN 100 UNIT/1 ML 3ML VIAL SQ SCH ×4 (05:38→23:26)
[2020-06-22] MEDS: FUROSEMIDE INJ 10 MG/ML 4 ML VIAL IV SCH (08:45)
[2020-06-22] MEDS: ENOXAPARIN SOD INJ 40 MG/0.4 ML SYR SC SCH ×2 (08:45→20:02)
[2020-06-22] MEDS: MULTIVITAMINS/MINERALS TAB PO SCH (08:45)
[2020-06-22] MEDS: ZINC SULFATE 220 MG CAP PO SCH (08:45)
[2020-06-22] MEDS: ASCORBIC ACID 500 MG TAB PO SCH ×2 (08:45→20:02)
[2020-06-22 11:09] LABS: ABG HCO3 37 mmol/L (22-26); ABG PCO2 53 mmHg (35-45); ABG PH 7.46 (7.35-7.45); ABG PO2 100 mmHg (80-105); ABG TCO2 39
[2020-06-22] MEDS: ACETAZOLAMIDE 250 MG TAB PO SCH ×2 (15:49→20:02)
[2020-06-22] MEDS: FENTANYL CITRATE INJ 2,000 MCG in SODIUM CHLORIDE 0.9% 250ML 210 ML IV PRN (17:41)
[2020-06-22] MEDS: ACETAMINOPHEN 325 MG TAB PO PRN (19:52)
[2020-06-22] MEDS: INSULIN GLARGINE 100 UNITS/ML VIAL SQ SCH (20:02)
[2020-06-23] VITALS (26 sets, daily range): BP systolic 96–138; BP diastolic 49–70
[2020-06-23] MEDS: CEFEPIME 2 GM/NS 0.9% 100 ML 100 ML IV SCH ×3 (00:14→17:25)
[2020-06-23 05:18] LABS: BASOPHILS % 0.2 % (0.0-1.0); EOSINOPHILS # (AUTO) 0.1 (0.0-0.4); EOSINOPHILS % 2.4 % (0.0-6.0); HEMATOCRIT 29.1 % (38.2-49.6); HEMOGLOBIN 8.9 g/dL (14.0-18.0); LYMPHOCYTES # (AUTO) 0.4 (1.0-3.2); LYMPHOCYTES % 7.4 % (18.0-39.1); MEAN CORPUSCULAR HEMOGLOBIN 28.4 pg (28-32); MEAN CORPUSCULAR HGB CONC 30.6 g/dL (31-35); MONOCYTES # (AUTO) 0.2 (0.2-0.8); MONOCYTES % 2.9 % (4.4-11.3); NEUTROPHILS # (AUTO) 5.1 (2.1-6.9); NEUTROPHILS % 86.3 % (38.7-80.0); PLATELET COUNT 138 x10e3/uL (140-360); RED BLOOD COUNT 3.13 x10e6/uL (4.3-5.7); RED CELL DISTRIBUTION WIDTH 13.5 % (11.7-14.4)
[2020-06-23 05:34] LABS: ALANINE AMINOTRANSFERASE 21 IU/L (0-55); ALBUMIN 2.5 g/dL (3.5-5.0); ALBUMIN/GLOBULIN RATIO 0.9 (0.8-2.0); ALKALINE PHOSPHATASE 43 IU/L (40-150); ANION GAP 11.6 mmol/L (8-16); BLOOD UREA NITROGEN 39 mg/dL (7-26); BUN/CREATININE RATIO 57 (6-25); CALCIUM 8.4 mg/dL (8.4-10.2); CARBON DIOXIDE 34 mmol/L (22-29); CHLORIDE 103 mmol/L (98-107); CREATININE, SERUM 0.69 mg/dL (0.72-1.25); EST GLOMERULAR FILTRATION RATE > 60 ML/MIN (60-); GLUCOSE 177 mg/dL (74-118); POTASSIUM 3.6 mmol/L (3.5-5.1); SODIUM 145 mmol/L (136-145)
[2020-06-23] MEDS: INSULIN REGULAR, HUMAN 100 UNIT/1 ML 3ML VIAL SQ SCH ×3 (05:56→18:09)
[2020-06-23] MEDS ORDERED: CISATRACURIUM BESYLATE 200 MG in SODIUM CHLORIDE 0.9% 250ML 180 ML IV PRN (07:30)
[2020-06-23] MEDS: ACETAZOLAMIDE 250 MG TAB PO SCH (08:11)
[2020-06-23] MEDS: ASCORBIC ACID 500 MG TAB PO SCH ×2 (08:11→20:38)
[2020-06-23] MEDS: ENOXAPARIN SOD INJ 40 MG/0.4 ML SYR SC SCH ×2 (08:11→20:38)
[2020-06-23] MEDS: ZINC SULFATE 220 MG CAP PO SCH (08:11)
[2020-06-23] MEDS: MULTIVITAMINS/MINERALS TAB PO SCH (08:11)
[2020-06-23 12:53] LABS: ABG HCO3 32 mmol/L (22-26); ABG PCO2 38 mmHg (35-45); ABG PH 7.54 (7.35-7.45); ABG PO2 143 mmHg (80-105); ABG TCO2 33
[2020-06-23] MEDS: MIDAZOLAM HCL 5MG/ML 10ML VIAL 100 ML IV PRN (12:53)
[2020-06-23] MEDS: FENTANYL CITRATE INJ 2,000 MCG in SODIUM CHLORIDE 0.9% 250ML 210 ML IV PRN (12:53)
[2020-06-23] MEDS: INSULIN GLARGINE 100 UNITS/ML VIAL SQ SCH (20:39)
[2020-06-24] VITALS (24 sets, daily range): BP systolic 103–144; BP diastolic 48–79
[2020-06-24] MEDS: INSULIN REGULAR, HUMAN 100 UNIT/1 ML 3ML VIAL SQ SCH ×5 (00:06→23:34)
[2020-06-24] MEDS: MIDAZOLAM HCL 5MG/ML 10ML VIAL 100 ML IV PRN ×2 (02:29→17:24)
[2020-06-24 04:14] LABS: BASOPHILS % 0.1 % (0.0-1.0); EOSINOPHILS # (AUTO) 0.2 (0.0-0.4); EOSINOPHILS % 2.3 % (0.0-6.0); HEMOGLOBIN 9.9 g/dL (14.0-18.0); LYMPHOCYTES # (AUTO) 0.4 (1.0-3.2); LYMPHOCYTES % 5.2 % (18.0-39.1); MEAN CORPUSCULAR HEMOGLOBIN 28.1 pg (28-32); MEAN CORPUSCULAR HGB CONC 29.1 g/dL (31-35); MEAN CORPUSCULAR VOLUME 96.6 fL (81-99); MONOCYTES # (AUTO) 0.4 (0.2-0.8); MONOCYTES % 4.1 % (4.4-11.3); NEUTROPHILS # (AUTO) 7.4 (2.1-6.9); NEUTROPHILS % 86.8 % (38.7-80.0); PLATELET COUNT 204 x10e3/uL (140-360); RED BLOOD COUNT 3.52 x10e6/uL (4.3-5.7); RED CELL DISTRIBUTION WIDTH 13.7 % (11.7-14.4)
[2020-06-24 04:34] LABS: ALANINE AMINOTRANSFERASE 26 IU/L (0-55); ALBUMIN 2.4 g/dL (3.5-5.0); ALBUMIN/GLOBULIN RATIO 0.7 (0.8-2.0); ALKALINE PHOSPHATASE 62 IU/L (40-150); ANION GAP 12.3 mmol/L (8-16); BLOOD UREA NITROGEN 37 mg/dL (7-26); BUN/CREATININE RATIO 52 (6-25); CALCIUM 8.9 mg/dL (8.4-10.2); CARBON DIOXIDE 33 mmol/L (22-29); CHLORIDE 105 mmol/L (98-107); CREATININE, SERUM 0.71 mg/dL (0.72-1.25); EST GLOMERULAR FILTRATION RATE > 60 ML/MIN (60-); GLUCOSE 216 mg/dL (74-118); POTASSIUM 4.3 mmol/L (3.5-5.1); SODIUM 146 mmol/L (136-145)
[2020-06-24] MEDS ORDERED: INSULIN GLARGINE 100 UNITS/ML VIAL SQ ONE (07:45)
[2020-06-24] MEDS: ASCORBIC ACID 500 MG TAB PO SCH ×2 (08:09→20:56)
[2020-06-24] MEDS: ENOXAPARIN SOD INJ 40 MG/0.4 ML SYR SC SCH ×2 (08:09→20:49)
[2020-06-24] MEDS: ZINC SULFATE 220 MG CAP PO SCH (08:09)
[2020-06-24] MEDS: MULTIVITAMINS/MINERALS TAB PO SCH (08:09)
[2020-06-24] MEDS: ACETAMINOPHEN 325 MG TAB PO PRN (08:10)
[2020-06-24] MEDS: CEFEPIME 2 GM/NS 0.9% 100 ML 100 ML IV SCH ×3 (08:39→16:52)
[2020-06-24] MEDS: FENTANYL CITRATE INJ 2,000 MCG in SODIUM CHLORIDE 0.9% 250ML 210 ML IV PRN (13:32)
[2020-06-24 17:12] LABS: AMYLASE 45 U/L (25-125); LIPASE 16 U/L (8-78)
[2020-06-24 18:25] LABS: ABG PH 7.23 (7.35-7.45)
[2020-06-24 18:26] LABS: ABG PCO2 83 mmHg (35-45)
[2020-06-24 18:27] LABS: ABG HCO3 35 mmol/L (22-26); ABG PO2 89 mmHg (80-105); ABG TCO2 37
[2020-06-24 20:10] LABS: ABG HCO3 36 mmol/L (22-26); ABG PCO2 69 mmHg (35-45); ABG PH 7.32 (7.35-7.45); ABG PO2 71 mmHg (80-105); ABG TCO2 38
[2020-06-24] MEDS ORDERED: INSULIN GLARGINE 100 UNITS/ML VIAL SQ SCH (21:00)
[2020-06-24] MEDS ORDERED: IOPAMIDOL 370 MG/ML 200 ML INFUS..BTL INJ ONE (23:44)
[2020-06-25] VITALS (24 sets, daily range): BP systolic 76–137; BP diastolic 51–68
[2020-06-25] MEDS: CEFEPIME 2 GM/NS 0.9% 100 ML 100 ML IV SCH ×3 (01:07→17:23)
[2020-06-25 05:00] LABS: BASOPHILS % 0.2 % (0.0-1.0); EOSINOPHILS # (AUTO) 0.2 (0.0-0.4); HEMATOCRIT 31.6 % (38.2-49.6); HEMOGLOBIN 9.3 g/dL (14.0-18.0); LYMPHOCYTES # (AUTO) 0.4 (1.0-3.2); LYMPHOCYTES % 6.7 % (18.0-39.1); MEAN CORPUSCULAR HEMOGLOBIN 28.1 pg (28-32); MEAN CORPUSCULAR HGB CONC 29.4 g/dL (31-35); MEAN CORPUSCULAR VOLUME 95.5 fL (81-99); MONOCYTES # (AUTO) 0.4 (0.2-0.8); MONOCYTES % 5.6 % (4.4-11.3); NEUTROPHILS # (AUTO) 5.4 (2.1-6.9); NEUTROPHILS % 83.6 % (38.7-80.0); PLATELET COUNT 174 x10e3/uL (140-360); RED BLOOD COUNT 3.31 x10e6/uL (4.3-5.7); RED CELL DISTRIBUTION WIDTH 13.7 % (11.7-14.4)
[2020-06-25 05:19] LABS: ALANINE AMINOTRANSFERASE 27 IU/L (0-55); ALBUMIN 2.1 g/dL (3.5-5.0); ALBUMIN/GLOBULIN RATIO 0.6 (0.8-2.0); ALKALINE PHOSPHATASE 67 IU/L (40-150); ANION GAP 9.3 mmol/L (8-16); BLOOD UREA NITROGEN 35 mg/dL (7-26); BUN/CREATININE RATIO 54 (6-25); CALCIUM 8.9 mg/dL (8.4-10.2); CARBON DIOXIDE 35 mmol/L (22-29); CHLORIDE 107 mmol/L (98-107); CREATININE, SERUM 0.65 mg/dL (0.72-1.25); EST GLOMERULAR FILTRATION RATE > 60 ML/MIN (60-); GLUCOSE 223 mg/dL (74-118); POTASSIUM 4.3 mmol/L (3.5-5.1); SODIUM 147 mmol/L (136-145)
[2020-06-25] MEDS: INSULIN REGULAR, HUMAN 100 UNIT/1 ML 3ML VIAL SQ SCH ×3 (05:56→17:34)
[2020-06-25] MEDS ORDERED: AMIODARONE HCL 150MG 100 ML IV SCH (06:00)
[2020-06-25] MEDS ORDERED: AMIODARONE HCL 360MG 200 ML IV SCH ×2 (06:00)
[2020-06-25] MEDS ORDERED: AMIODARONE HCL 100 ML IV ONE (06:13)
[2020-06-25] MEDS ORDERED: AMIODARONE 900MG 500 ML IV ONE (06:13)
[2020-06-25] MEDS: MIDAZOLAM HCL 5MG/ML 10ML VIAL 100 ML IV PRN ×2 (06:13→17:34)
[2020-06-25] MEDS ORDERED: AMIODARONE HCL 150MG 100 ML ONE (06:15)
[2020-06-25] MEDS ORDERED: AMIODARONE HCL 360MG 200 ML IV ONE (06:15)
[2020-06-25 07:10] LABS: INR 1.07; PROTHROMBIN TIME 14.5 seconds (11.9-14.5)
[2020-06-25 07:11] LABS: PARTIAL THROMBOPLASTIN TIME 57.1 seconds (23.8-35.5)
[2020-06-25 07:25] LABS: CREATINE KINASE MB 0.3 ng/mL (0-5.0)
[2020-06-25] MEDS: ASCORBIC ACID 500 MG TAB PO SCH ×2 (08:29→20:10)
[2020-06-25] MEDS: ENOXAPARIN SOD INJ 40 MG/0.4 ML SYR SC SCH ×2 (08:29→20:10)
[2020-06-25] MEDS: ZINC SULFATE 220 MG CAP PO SCH (08:29)
[2020-06-25] MEDS: MULTIVITAMINS/MINERALS TAB PO SCH (08:29)
[2020-06-25 09:32] LABS: ABG HCO3 31 mmol/L (22-26); ABG PCO2 76 mmHg (35-45); ABG PH 7.22 (7.35-7.45); ABG PO2 66 mmHg (80-105); ABG TCO2 33
[2020-06-25] MEDS: FENTANYL CITRATE INJ 2,000 MCG in SODIUM CHLORIDE 0.9% 250ML 210 ML IV PRN (09:40)
[2020-06-25] MEDS: INSULIN GLARGINE 100 UNITS/ML VIAL SQ SCH (21:15)
[2020-06-26] VITALS (25 sets, daily range): BP systolic 106–135; BP diastolic 49–64
[2020-06-26] MEDS: INSULIN REGULAR, HUMAN 100 UNIT/1 ML 3ML VIAL SQ SCH ×4 (00:04→17:54)
[2020-06-26] MEDS: CEFEPIME 2 GM/NS 0.9% 100 ML 100 ML IV SCH ×3 (00:06→16:58)
[2020-06-26] MEDS: CISATRACURIUM BESYLATE 200 MG in SODIUM CHLORIDE 0.9% 250ML 100 ML IV PRN ×2 (02:32→23:37)
[2020-06-26] MEDS: MIDAZOLAM HCL 5MG/ML 10ML VIAL 100 ML IV PRN ×2 (03:16→12:22)
[2020-06-26] MEDS: FENTANYL CITRATE INJ 2,000 MCG in SODIUM CHLORIDE 0.9% 250ML 210 ML IV PRN (04:44)
[2020-06-26 05:53] LABS: ALANINE AMINOTRANSFERASE 29 IU/L (0-55); ALBUMIN 1.9 g/dL (3.5-5.0); ALBUMIN/GLOBULIN RATIO 0.5 (0.8-2.0); ALKALINE PHOSPHATASE 68 IU/L (40-150); ANION GAP 11.3 mmol/L (8-16); BLOOD UREA NITROGEN 37 mg/dL (7-26); BUN/CREATININE RATIO 60 (6-25); CALCIUM 8.9 mg/dL (8.4-10.2); CARBON DIOXIDE 33 mmol/L (22-29); CHLORIDE 107 mmol/L (98-107); CREATININE, SERUM 0.62 mg/dL (0.72-1.25); EST GLOMERULAR FILTRATION RATE > 60 ML/MIN (60-); GLUCOSE 141 mg/dL (74-118); POTASSIUM 4.3 mmol/L (3.5-5.1); SODIUM 147 mmol/L (136-145)
[2020-06-26 06:01] LABS: BASOPHILS % 0.4 % (0.0-1.0); EOSINOPHILS # (AUTO) 0.3 (0.0-0.4); EOSINOPHILS % 2.5 % (0.0-6.0); HEMATOCRIT 30.7 % (38.2-49.6); HEMOGLOBIN 9.6 g/dL (14.0-18.0); LYMPHOCYTES # (AUTO) 0.6 (1.0-3.2); LYMPHOCYTES % 5.8 % (18.0-39.1); MEAN CORPUSCULAR HEMOGLOBIN 30.9 pg (28-32); MEAN CORPUSCULAR HGB CONC 31.3 g/dL (31-35); MEAN CORPUSCULAR VOLUME 98.7 fL (81-99); MONOCYTES # (AUTO) 0.5 (0.2-0.8); MONOCYTES % 4.2 % (4.4-11.3); NEUTROPHILS # (AUTO) 9.2 (2.1-6.9); NEUTROPHILS % 85.3 % (38.7-80.0); PLATELET COUNT 176 x10e3/uL (140-360); RED BLOOD COUNT 3.11 x10e6/uL (4.3-5.7); RED CELL DISTRIBUTION WIDTH 14.7 % (11.7-14.4)
[2020-06-26] MEDS: ASCORBIC ACID 500 MG TAB PO SCH ×2 (08:26→20:22)
[2020-06-26] MEDS: ZINC SULFATE 220 MG CAP PO SCH (08:26)
[2020-06-26] MEDS: ENOXAPARIN SOD INJ 40 MG/0.4 ML SYR SC SCH ×2 (08:26→20:22)
[2020-06-26] MEDS: MULTIVITAMINS/MINERALS TAB PO SCH (08:26)
[2020-06-26 09:19] LABS: ABG HCO3 35 mmol/L (22-26); ABG PCO2 67 mmHg (35-45); ABG PH 7.33 (7.35-7.45); ABG PO2 106 mmHg (80-105); ABG TCO2 37
[2020-06-26] MEDS ORDERED: ALBUMIN 25% 25GM 100ML 0.25 GM/ML BTL IV SCH (12:00)
[2020-06-26] MEDS: ALBUMIN 25% 25GM 100ML 100 ML IV SCH ×3 (12:15→23:38)
[2020-06-26] MEDS: FUROSEMIDE INJ 10 MG/ML 4 ML VIAL IV SCH ×2 (13:19→20:21)
[2020-06-26] MEDS: AMIODARONE HCL 200 MG TAB PO SCH (17:51)
[2020-06-26] MEDS: INSULIN GLARGINE 100 UNITS/ML VIAL SQ SCH (20:28)
[2020-06-26] MEDS ORDERED: FUROSEMIDE INJ 10 MG/ML 4 ML VIAL IV SCH (21:00)
[2020-06-27] VITALS (25 sets, daily range): BP systolic 116–143; BP diastolic 45–61
[2020-06-27] MEDS: INSULIN REGULAR, HUMAN 100 UNIT/1 ML 3ML VIAL SQ SCH ×4 (00:19→18:07)
[2020-06-27] MEDS: MIDAZOLAM HCL 5MG/ML 10ML VIAL 100 ML IV PRN ×2 (00:31→13:56)
[2020-06-27] MEDS: CEFEPIME 2 GM/NS 0.9% 100 ML 100 ML IV SCH ×3 (00:45→17:11)
[2020-06-27] MEDS: FENTANYL CITRATE INJ 2,000 MCG in SODIUM CHLORIDE 0.9% 250ML 210 ML IV PRN ×2 (01:44→23:36)
[2020-06-27 05:37] LABS: BASOPHILS % 0.2 % (0.0-1.0); EOSINOPHILS # (AUTO) 0.2 (0.0-0.4); EOSINOPHILS % 3.2 % (0.0-6.0); HEMATOCRIT 26.3 % (38.2-49.6); HEMOGLOBIN 7.8 g/dL (14.0-18.0); LYMPHOCYTES # (AUTO) 0.3 (1.0-3.2); MEAN CORPUSCULAR HEMOGLOBIN 28.8 pg (28-32); MEAN CORPUSCULAR HGB CONC 29.7 g/dL (31-35); MONOCYTES # (AUTO) 0.2 (0.2-0.8); MONOCYTES % 3.8 % (4.4-11.3); NEUTROPHILS # (AUTO) 4.5 (2.1-6.9); NEUTROPHILS % 85.7 % (38.7-80.0); PLATELET COUNT 131 x10e3/uL (140-360); RED BLOOD COUNT 2.71 x10e6/uL (4.3-5.7); RED CELL DISTRIBUTION WIDTH 14.1 % (11.7-14.4)
[2020-06-27 05:51] LABS: ALANINE AMINOTRANSFERASE 26 IU/L (0-55); ALBUMIN 2.7 g/dL (3.5-5.0); ALBUMIN/GLOBULIN RATIO 0.8 (0.8-2.0); ALKALINE PHOSPHATASE 66 IU/L (40-150); ANION GAP 10.6 mmol/L (8-16); BLOOD UREA NITROGEN 47 mg/dL (7-26); BUN/CREATININE RATIO 59 (6-25); CALCIUM 8.7 mg/dL (8.4-10.2); CARBON DIOXIDE 35 mmol/L (22-29); CHLORIDE 103 mmol/L (98-107); CREATININE, SERUM 0.79 mg/dL (0.72-1.25); EST GLOMERULAR FILTRATION RATE > 60 ML/MIN (60-); GLUCOSE 186 mg/dL (74-118); POTASSIUM 3.6 mmol/L (3.5-5.1); SODIUM 145 mmol/L (136-145)
[2020-06-27] MEDS: ENOXAPARIN SOD INJ 40 MG/0.4 ML SYR SC SCH (09:03)
[2020-06-27] MEDS: AMIODARONE HCL 200 MG TAB PO SCH ×2 (09:03→17:22)
[2020-06-27] MEDS: ZINC SULFATE 220 MG CAP PO SCH (09:03)
[2020-06-27] MEDS: MULTIVITAMINS/MINERALS TAB PO SCH (09:03)
[2020-06-27] MEDS: ASCORBIC ACID 500 MG TAB PO SCH ×2 (09:03→21:15)
[2020-06-27 09:34] LABS: HYPOCHROMASIA SLIGHT
[2020-06-27] MEDS: BISACODYL 10 MG SUPP PR PRN (10:53)
[2020-06-27 13:15] LABS: ABG PH 7.36 (7.35-7.45)
[2020-06-27 13:16] LABS: ABG HCO3 35 mmol/L (22-26); ABG PCO2 63 mmHg (35-45); ABG PO2 63 mmHg (80-105); ABG TCO2 37
[2020-06-27 14:40] LABS: BASOPHILS % 0.1 % (0.0-1.0); EOSINOPHILS # (AUTO) 0.3 (0.0-0.4); EOSINOPHILS % 3.2 % (0.0-6.0); HEMATOCRIT 28.7 % (38.2-49.6); HEMOGLOBIN 8.6 g/dL (14.0-18.0); LYMPHOCYTES # (AUTO) 0.4 (1.0-3.2); MEAN CORPUSCULAR HEMOGLOBIN 28.3 pg (28-32); MEAN CORPUSCULAR VOLUME 94.4 fL (81-99); MONOCYTES # (AUTO) 0.3 (0.2-0.8); MONOCYTES % 3.1 % (4.4-11.3); NEUTROPHILS % 87.4 % (38.7-80.0); PLATELET COUNT 153 x10e3/uL (140-360); RED BLOOD COUNT 3.04 x10e6/uL (4.3-5.7); RED CELL DISTRIBUTION WIDTH 14.4 % (11.7-14.4)
[2020-06-27] MEDS: PANTOPRAZOLE 40 MG 10ML VIAL IV SCH (18:06)
[2020-06-27] MEDS: ROCURONIUM BROMIDE 1,250 MG in SODIUM CHLORIDE 0.9% 250ML 125 ML IV SCH (19:00)
[2020-06-27] MEDS: INSULIN GLARGINE 100 UNITS/ML VIAL SQ SCH (21:21)
[2020-06-28] VITALS (23 sets, daily range): BP systolic 108–141; BP diastolic 49–61
[2020-06-28] MEDS: INSULIN REGULAR, HUMAN 100 UNIT/1 ML 3ML VIAL SQ SCH ×4 (00:41→18:27)
[2020-06-28] MEDS: CEFEPIME 2 GM/NS 0.9% 100 ML 100 ML IV SCH ×3 (00:46→17:26)
[2020-06-28] MEDS: MIDAZOLAM HCL 5MG/ML 10ML VIAL 100 ML IV PRN ×2 (02:13→15:39)
[2020-06-28] MEDS: ROCURONIUM BROMIDE 1,250 MG in SODIUM CHLORIDE 0.9% 250ML 125 ML IV SCH (05:36)
[2020-06-28] MEDS: ASCORBIC ACID 500 MG TAB PO SCH ×2 (08:32→21:46)
[2020-06-28] MEDS: ZINC SULFATE 220 MG CAP PO SCH (08:32)
[2020-06-28] MEDS: PANTOPRAZOLE 40 MG 10ML VIAL IV SCH ×2 (08:32→17:26)
[2020-06-28] MEDS: AMIODARONE HCL 200 MG TAB PO SCH ×2 (08:32→17:26)
[2020-06-28] MEDS: MULTIVITAMINS/MINERALS TAB PO SCH (08:32)
[2020-06-28] MEDS ORDERED: ENOXAPARIN SOD INJ 40 MG/0.4 ML SYR SC SCH (09:00)
[2020-06-28 11:01] LABS: BASOPHILS % 0.1 % (0.0-1.0); EOSINOPHILS # (AUTO) 0.2 (0.0-0.4); EOSINOPHILS % 2.3 % (0.0-6.0); HEMATOCRIT 27.5 % (38.2-49.6); HEMOGLOBIN 8.2 g/dL (14.0-18.0); LYMPHOCYTES # (AUTO) 0.3 (1.0-3.2); LYMPHOCYTES % 3.9 % (18.0-39.1); MEAN CORPUSCULAR HEMOGLOBIN 28.3 pg (28-32); MEAN CORPUSCULAR HGB CONC 29.8 g/dL (31-35); MEAN CORPUSCULAR VOLUME 94.8 fL (81-99); MONOCYTES # (AUTO) 0.3 (0.2-0.8); MONOCYTES % 4.3 % (4.4-11.3); NEUTROPHILS # (AUTO) 6.5 (2.1-6.9); NEUTROPHILS % 88.5 % (38.7-80.0); PLATELET COUNT 126 x10e3/uL (140-360); RED CELL DISTRIBUTION WIDTH 14.6 % (11.7-14.4)
[2020-06-28] MEDS ORDERED: ALBUMIN 25% 25GM 100ML 0.25 GM/ML BTL IV SCH (12:00)
[2020-06-28 12:03] LABS: ALANINE AMINOTRANSFERASE 24 IU/L (0-55); ALBUMIN 2.1 g/dL (3.5-5.0); ALBUMIN/GLOBULIN RATIO 0.6 (0.8-2.0); ALKALINE PHOSPHATASE 68 IU/L (40-150); ANION GAP 11.9 mmol/L (8-16); BLOOD UREA NITROGEN 51 mg/dL (7-26); BUN/CREATININE RATIO 65 (6-25); CALCIUM 8.6 mg/dL (8.4-10.2); CARBON DIOXIDE 32 mmol/L (22-29); CHLORIDE 106 mmol/L (98-107); CREATININE, SERUM 0.78 mg/dL (0.72-1.25); EST GLOMERULAR FILTRATION RATE > 60 ML/MIN (60-); GLUCOSE 179 mg/dL (74-118); POTASSIUM 3.9 mmol/L (3.5-5.1); SODIUM 146 mmol/L (136-145)
[2020-06-28] MEDS: ALBUMIN 25% 25GM 100ML 100 ML IV SCH ×2 (12:17→18:30)
[2020-06-28] MEDS: FUROSEMIDE INJ 10 MG/ML 4 ML VIAL IV SCH ×2 (12:59→21:46)
[2020-06-28 18:41] LABS: ABG HCO3 34 mmol/L (22-26); ABG PCO2 74 mmHg (35-45); ABG PH 7.27 (7.35-7.45); ABG PO2 81 mmHg (80-105); ABG TCO2 37
[2020-06-28] MEDS: FENTANYL CITRATE INJ 2,000 MCG in SODIUM CHLORIDE 0.9% 250ML 210 ML IV PRN (18:46)
[2020-06-28] MEDS: INSULIN GLARGINE 100 UNITS/ML VIAL SQ SCH (21:47)
[2020-06-29] VITALS (19 sets, daily range): BP systolic 119–155; BP diastolic 50–67
[2020-06-29] MEDS: ALBUMIN 25% 25GM 100ML 100 ML IV SCH (00:25)
[2020-06-29] MEDS: INSULIN REGULAR, HUMAN 100 UNIT/1 ML 3ML VIAL SQ SCH ×4 (00:25→19:18)
[2020-06-29] MEDS: CEFEPIME 2 GM/NS 0.9% 100 ML 100 ML IV SCH ×2 (01:10→09:59)
[2020-06-29 04:48] LABS: BASOPHILS % 0.2 % (0.0-1.0); EOSINOPHILS # (AUTO) 0.2 (0.0-0.4); EOSINOPHILS % 3.3 % (0.0-6.0); LYMPHOCYTES # (AUTO) 0.4 (1.0-3.2); LYMPHOCYTES % 8.1 % (18.0-39.1); MEAN CORPUSCULAR HEMOGLOBIN 27.6 pg (28-32); MEAN CORPUSCULAR HGB CONC 29.6 g/dL (31-35); MEAN CORPUSCULAR VOLUME 93.5 fL (81-99); MONOCYTES # (AUTO) 0.2 (0.2-0.8); MONOCYTES % 4.1 % (4.4-11.3); NEUTROPHILS # (AUTO) 3.8 (2.1-6.9); NEUTROPHILS % 83.2 % (38.7-80.0); PLATELET COUNT 110 x10e3/uL (140-360); RED BLOOD COUNT 2.46 x10e6/uL (4.3-5.7); RED CELL DISTRIBUTION WIDTH 14.6 % (11.7-14.4)
[2020-06-29 04:54] LABS: HEMOGLOBIN 6.8 g/dL (14.0-18.0)
[2020-06-29 05:11] LABS: ALANINE AMINOTRANSFERASE 19 IU/L (0-55); ALBUMIN 2.6 g/dL (3.5-5.0); ALBUMIN/GLOBULIN RATIO 0.8 (0.8-2.0); ALKALINE PHOSPHATASE 65 IU/L (40-150); ANION GAP 12.3 mmol/L (8-16); BLOOD UREA NITROGEN 63 mg/dL (7-26); BUN/CREATININE RATIO 60 (6-25); CALCIUM 8.5 mg/dL (8.4-10.2); CARBON DIOXIDE 30 mmol/L (22-29); CHLORIDE 105 mmol/L (98-107); CREATININE, SERUM 1.05 mg/dL (0.72-1.25); EST GLOMERULAR FILTRATION RATE > 60 ML/MIN (60-); GLUCOSE 179 mg/dL (74-118); POTASSIUM 3.3 mmol/L (3.5-5.1); SODIUM 144 mmol/L (136-145)
[2020-06-29] MEDS ORDERED: SODIUM CHLORIDE 0.9% 250ML 250 ML IV ONE (07:15)
[2020-06-29] MEDS ORDERED: POTASSIUM CHLORIDE 20 MEQ TAB CR PO ONE (07:45)
[2020-06-29] MEDS ORDERED: POTASSIUM CHLORIDE 20MEQ/15ML UDC NG ONE (08:45)
[2020-06-29 09:06] LABS: ABG PCO2 51 mmHg (35-45)
[2020-06-29 09:07] LABS: ABG HCO3 32 mmol/L (22-26); ABG PO2 51 mmHg (80-105); ABG TCO2 33
[2020-06-29] MEDS ORDERED: MIDAZOLAM HCL 5MG/ML 10ML VIAL 100 ML IV PRN (09:45)
[2020-06-29] MEDS: FUROSEMIDE INJ 10 MG/ML 4 ML VIAL IV SCH ×3 (09:57→21:28)
[2020-06-29] MEDS: PANTOPRAZOLE 40 MG 10ML VIAL IV SCH ×2 (10:00→17:37)
[2020-06-29] MEDS: ASCORBIC ACID 500 MG TAB PO SCH ×2 (10:00→21:28)
[2020-06-29] MEDS: AMIODARONE HCL 200 MG TAB PO SCH ×2 (10:00→17:37)
[2020-06-29] MEDS: MULTIVITAMINS/MINERALS TAB PO SCH (10:00)
[2020-06-29] MEDS: ZINC SULFATE 220 MG CAP PO SCH (10:00)
[2020-06-29] MEDS: HEPARIN SOD/SOD CHLORIDE 1,000 ML IV SCH (11:00)
[2020-06-29] MEDS ORDERED: FUROSEMIDE INJ 100 MG in SODIUM CHLORIDE 0.9% 100 ML 90 ML IV SCH (11:45)
[2020-06-29] MEDS ORDERED: MIDAZOLAM HCL 50 MG in SODIUM CHLORIDE 0.9% 100 ML 90 ML IV PRN (17:30)
[2020-06-29] MEDS ORDERED: FENTANYL CITRATE INJ 2,000 MCG in SODIUM CHLORIDE 0.9% 250ML 210 ML IV PRN (17:30)
[2020-06-29] MEDS: ROCURONIUM BROMIDE 1,250 MG in SODIUM CHLORIDE 0.9% 250ML 125 ML IV SCH (19:00)
[2020-06-29] MEDS: INSULIN GLARGINE 100 UNITS/ML VIAL SQ SCH (21:34)
[2020-06-29 21:37] LABS: ANION GAP 16.8 mmol/L (8-16); CALCIUM 8.6 mg/dL (8.4-10.2); CREATININE, SERUM 1.3 mg/dL (0.72-1.25); POTASSIUM 3.8 mmol/L (3.5-5.1)
[2020-06-29 21:41] LABS: BASOPHILS % 0.2 % (0.0-1.0); EOSINOPHILS # (AUTO) 0.3 (0.0-0.4); EOSINOPHILS % 4.3 % (0.0-6.0); HEMATOCRIT 27.5 % (38.2-49.6); HEMOGLOBIN 8.6 g/dL (14.0-18.0); LYMPHOCYTES # (AUTO) 0.5 (1.0-3.2); LYMPHOCYTES % 7.7 % (18.0-39.1); MEAN CORPUSCULAR HEMOGLOBIN 28.8 pg (28-32); MEAN CORPUSCULAR HGB CONC 31.3 g/dL (31-35); MONOCYTES # (AUTO) 0.2 (0.2-0.8); MONOCYTES % 3.8 % (4.4-11.3); NEUTROPHILS # (AUTO) 4.9 (2.1-6.9); NEUTROPHILS % 82.7 % (38.7-80.0); PLATELET COUNT 137 x10e3/uL (140-360); RED BLOOD COUNT 2.99 x10e6/uL (4.3-5.7); RED CELL DISTRIBUTION WIDTH 15.3 % (11.7-14.4)
[2020-06-30] VITALS (22 sets, daily range): BP systolic 123–187; BP diastolic 50–68
[2020-06-30] MEDS: INSULIN REGULAR, HUMAN 100 UNIT/1 ML 3ML VIAL SQ SCH ×4 (00:24→18:00)
[2020-06-30 05:29] LABS: BASOPHILS % 0.2 % (0.0-1.0); EOSINOPHILS # (AUTO) 0.3 (0.0-0.4); EOSINOPHILS % 4.6 % (0.0-6.0); HEMATOCRIT 27.4 % (38.2-49.6); HEMOGLOBIN 8.5 g/dL (14.0-18.0); LYMPHOCYTES # (AUTO) 0.4 (1.0-3.2); LYMPHOCYTES % 6.7 % (18.0-39.1); MEAN CORPUSCULAR HEMOGLOBIN 28.4 pg (28-32); MEAN CORPUSCULAR VOLUME 91.6 fL (81-99); MONOCYTES # (AUTO) 0.3 (0.2-0.8); MONOCYTES % 4.3 % (4.4-11.3); NEUTROPHILS # (AUTO) 5.4 (2.1-6.9); NEUTROPHILS % 82.7 % (38.7-80.0); PLATELET COUNT 139 x10e3/uL (140-360); RED BLOOD COUNT 2.99 x10e6/uL (4.3-5.7); RED CELL DISTRIBUTION WIDTH 15.5 % (11.7-14.4)
[2020-06-30 06:00] LABS: ALBUMIN 2.3 g/dL (3.5-5.0); ALBUMIN/GLOBULIN RATIO 0.6 (0.8-2.0); ANION GAP 15.9 mmol/L (8-16); CALCIUM 8.6 mg/dL (8.4-10.2); CREATININE, SERUM 1.35 mg/dL (0.72-1.25); POTASSIUM 3.9 mmol/L (3.5-5.1)
[2020-06-30] MEDS: PANTOPRAZOLE 40 MG 10ML VIAL IV SCH ×2 (09:00→19:15)
[2020-06-30] MEDS: ASCORBIC ACID 500 MG TAB PO SCH ×2 (09:00→22:00)
[2020-06-30] MEDS: MULTIVITAMINS/MINERALS TAB PO SCH (09:00)
[2020-06-30] MEDS: ZINC SULFATE 220 MG CAP PO SCH (09:00)
[2020-06-30] MEDS: AMIODARONE HCL 200 MG TAB PO SCH ×2 (09:00→19:15)
[2020-06-30 09:23] LABS: ABG HCO3 33 mmol/L (22-26); ABG PCO2 50 mmHg (35-45); ABG PH 7.42 (7.35-7.45); ABG PO2 60 mmHg (80-105); ABG TCO2 34
[2020-06-30] MEDS: HEPARIN SOD/SOD CHLORIDE 1,000 ML IV SCH (11:00)
[2020-06-30] MEDS ORDERED: SODIUM CHLORIDE 0.9% 1000ML 1,000 ML ONE (14:18)
[2020-06-30] MEDS: FENTANYL 2000MCG/NS 250 250 ML IV PRN (17:10)
[2020-06-30] MEDS: MIDAZOLAM HCL 5MG/ML 10ML VIAL 100 ML IV PRN (17:10)
[2020-06-30] MEDS: ROCURONIUM BROMIDE 1,250 MG in SODIUM CHLORIDE 0.9% 250ML 125 ML IV SCH (19:00)
[2020-06-30] MEDS: INSULIN GLARGINE 100 UNITS/ML VIAL SQ SCH (22:00)
[2020-07-01] VITALS (25 sets, daily range): BP systolic 105–171; BP diastolic 44–63
[2020-07-01] MEDS: INSULIN REGULAR, HUMAN 100 UNIT/1 ML 3ML VIAL SQ SCH ×4 (00:30→18:40)
[2020-07-01] MEDS: FENTANYL 2000MCG/NS 250 250 ML IV PRN ×2 (05:00→16:45)
[2020-07-01] MEDS: MIDAZOLAM HCL 5MG/ML 10ML VIAL 100 ML IV PRN ×3 (05:00→19:53)
[2020-07-01 05:35] LABS: BASOPHILS % 0.4 % (0.0-1.0); EOSINOPHILS # (AUTO) 0.3 (0.0-0.4); EOSINOPHILS % 4.4 % (0.0-6.0); HEMOGLOBIN 9.6 g/dL (14.0-18.0); LYMPHOCYTES # (AUTO) 0.4 (1.0-3.2); MEAN CORPUSCULAR HEMOGLOBIN 28.8 pg (28-32); MEAN CORPUSCULAR VOLUME 93.1 fL (81-99); MONOCYTES # (AUTO) 0.4 (0.2-0.8); MONOCYTES % 5.7 % (4.4-11.3); NEUTROPHILS # (AUTO) 6.5 (2.1-6.9); NEUTROPHILS % 83.9 % (38.7-80.0); PLATELET COUNT 145 x10e3/uL (140-360); RED BLOOD COUNT 3.33 x10e6/uL (4.3-5.7); RED CELL DISTRIBUTION WIDTH 15.3 % (11.7-14.4)
[2020-07-01 06:02] LABS: ALBUMIN 2.2 g/dL (3.5-5.0); ALBUMIN/GLOBULIN RATIO 0.5 (0.8-2.0); ANION GAP 17.7 mmol/L (8-16); CALCIUM 8.7 mg/dL (8.4-10.2); CREATININE, SERUM 1.33 mg/dL (0.72-1.25); POTASSIUM 3.7 mmol/L (3.5-5.1)
[2020-07-01 08:42] LABS: ABG HCO3 34 mmol/L (22-26); ABG PCO2 57 mmHg (35-45); ABG PH 7.39 (7.35-7.45); ABG PO2 80 mmHg (80-105); ABG TCO2 36
[2020-07-01] MEDS: MULTIVITAMINS/MINERALS TAB PO SCH (10:57)
[2020-07-01] MEDS: PANTOPRAZOLE 40 MG 10ML VIAL IV SCH ×2 (10:57→18:25)
[2020-07-01] MEDS: HEPARIN SOD/SOD CHLORIDE 1,000 ML IV SCH (10:57)
[2020-07-01] MEDS: ZINC SULFATE 220 MG CAP PO SCH (10:57)
[2020-07-01] MEDS: AMIODARONE HCL 200 MG TAB PO SCH ×2 (10:57→18:25)
[2020-07-01] MEDS: ASCORBIC ACID 500 MG TAB PO SCH ×2 (10:57→20:16)
[2020-07-01 17:31] LABS: ABG HCO3 34 mmol/L (22-26); ABG PCO2 61 mmHg (35-45); ABG PH 7.35 (7.35-7.45); ABG PO2 84 mmHg (80-105); ABG TCO2 36
[2020-07-01] MEDS: ROCURONIUM BROMIDE 1,250 MG in SODIUM CHLORIDE 0.9% 250ML 125 ML IV SCH (19:53)
[2020-07-01 21:33] LABS: BILIRUBIN,URINE NEGATIVE (NEGATIVE); CLARITY,URINE SL CLOUDY (CLEAR); COLOR,URINE YELLOW (YELLOW); KETONES,URINE NEGATIVE (NEGATIVE); LEUKOCYTE ESTERASE ,URINE TRACE (NEGATIVE); NITRITE,URINE NEGATIVE (NEGATIVE); PROTEIN,URINE DIPSTICK 2+ (NEGATIVE); URINE UROBILINOGEN 0.2 mg/dL (0.2 - 1)
[2020-07-01 21:46] LABS: BACTERIA,URINE MODERATE /HPF; WBC,URINE (MAN) 0-5 /HPF (0-5)
[2020-07-01 21:47] LABS: YEAST,URINE MANY
[2020-07-01] MEDS: INSULIN GLARGINE 100 UNITS/ML VIAL SQ SCH (22:00)
[2020-07-01 22:04] LABS: CREATININE,URINE RANDOM 33.79 mg/dL (63-166); SODIUM,URINE 20 mmol/L; TOTAL PROTEIN, URINE 67.7 mg/dL (1-14)
[2020-07-02] VITALS (16 sets, daily range): BP systolic 117–151; BP diastolic 48–61
[2020-07-02] MEDS: INSULIN REGULAR, HUMAN 100 UNIT/1 ML 3ML VIAL SQ SCH ×5 (00:30→23:50)
[2020-07-02] MEDS: FENTANYL 2000MCG/NS 250 250 ML IV PRN ×2 (02:42→17:15)
[2020-07-02 05:20] LABS: BASOPHILS % 0.2 % (0.0-1.0); EOSINOPHILS # (AUTO) 0.5 (0.0-0.4); EOSINOPHILS % 7.9 % (0.0-6.0); HEMATOCRIT 30.1 % (38.2-49.6); HEMOGLOBIN 9.2 g/dL (14.0-18.0); LYMPHOCYTES # (AUTO) 0.4 (1.0-3.2); LYMPHOCYTES % 6.9 % (18.0-39.1); MEAN CORPUSCULAR HEMOGLOBIN 28.2 pg (28-32); MEAN CORPUSCULAR HGB CONC 30.6 g/dL (31-35); MEAN CORPUSCULAR VOLUME 92.3 fL (81-99); MONOCYTES # (AUTO) 0.4 (0.2-0.8); MONOCYTES % 6.5 % (4.4-11.3); NEUTROPHILS # (AUTO) 4.4 (2.1-6.9); NEUTROPHILS % 77.3 % (38.7-80.0); PLATELET COUNT 140 x10e3/uL (140-360); RED BLOOD COUNT 3.26 x10e6/uL (4.3-5.7); RED CELL DISTRIBUTION WIDTH 15.3 % (11.7-14.4)
[2020-07-02 05:49] LABS: ALBUMIN 1.9 g/dL (3.5-5.0); ALBUMIN/GLOBULIN RATIO 0.5 (0.8-2.0); ANION GAP 16.8 mmol/L (8-16); CALCIUM 8.6 mg/dL (8.4-10.2); CREATININE, SERUM 1.23 mg/dL (0.72-1.25); POTASSIUM 3.8 mmol/L (3.5-5.1)
[2020-07-02 06:07] LABS: MAGNESIUM 2.3 MG/DL (1.3-2.1); PHOSPHORUS 4.5 MG/DL (2.3-4.7)
[2020-07-02] MEDS: MIDAZOLAM HCL 5MG/ML 10ML VIAL 100 ML IV PRN ×2 (06:30→19:07)
[2020-07-02] MEDS: AMIODARONE HCL 200 MG TAB PO SCH ×2 (09:05→18:49)
[2020-07-02] MEDS: ASCORBIC ACID 500 MG TAB PO SCH ×2 (09:05→21:17)
[2020-07-02] MEDS: PANTOPRAZOLE 40 MG 10ML VIAL IV SCH ×2 (09:05→18:49)
[2020-07-02] MEDS: ZINC SULFATE 220 MG CAP PO SCH (09:05)
[2020-07-02] MEDS: MULTIVITAMINS/MINERALS TAB PO SCH (09:05)
[2020-07-02] MEDS: FUROSEMIDE INJ 10 MG/ML 4 ML VIAL IV SCH ×2 (10:00→21:17)
[2020-07-02 10:21] LABS: ABG HCO3 35 mmol/L (22-26); ABG PCO2 62 mmHg (35-45); ABG PH 7.36 (7.35-7.45); ABG PO2 120 mmHg (80-105); ABG TCO2 37
[2020-07-02] MEDS: ALBUMIN 25% 25GM 100ML 0.25 GM/ML BTL IV SCH ×3 (12:00→23:51)
[2020-07-02 17:23] LABS: ABG HCO3 34 mmol/L (22-26); ABG PCO2 55 mmHg (35-45); ABG PO2 80 mmHg (80-105); ABG TCO2 36
[2020-07-02] MEDS: ROCURONIUM BROMIDE 1,250 MG in SODIUM CHLORIDE 0.9% 250ML 125 ML IV SCH (19:00)
[2020-07-02] MEDS: INSULIN GLARGINE 100 UNITS/ML VIAL SQ SCH (21:20)
[2020-07-03] VITALS (26 sets, daily range): BP systolic 106–176; BP diastolic 31–61
[2020-07-03] MEDS: FENTANYL 2000MCG/NS 250 250 ML IV PRN ×3 (03:41→22:33)
[2020-07-03] MEDS: MIDAZOLAM HCL 5MG/ML 10ML VIAL 100 ML IV PRN ×3 (05:10→22:33)
[2020-07-03] MEDS: INSULIN REGULAR, HUMAN 100 UNIT/1 ML 3ML VIAL SQ SCH ×3 (05:25→18:26)
[2020-07-03 05:31] LABS: BASOPHILS % 0.2 % (0.0-1.0); EOSINOPHILS # (AUTO) 0.4 (0.0-0.4); HEMATOCRIT 26.8 % (38.2-49.6); LYMPHOCYTES # (AUTO) 0.4 (1.0-3.2); LYMPHOCYTES % 8.7 % (18.0-39.1); MEAN CORPUSCULAR HEMOGLOBIN 27.9 pg (28-32); MEAN CORPUSCULAR HGB CONC 29.9 g/dL (31-35); MEAN CORPUSCULAR VOLUME 93.4 fL (81-99); MONOCYTES # (AUTO) 0.3 (0.2-0.8); NEUTROPHILS # (AUTO) 3.4 (2.1-6.9); NEUTROPHILS % 73.4 % (38.7-80.0); PLATELET COUNT 140 x10e3/uL (140-360); RED BLOOD COUNT 2.87 x10e6/uL (4.3-5.7); RED CELL DISTRIBUTION WIDTH 15.4 % (11.7-14.4)
[2020-07-03 05:49] LABS: ALANINE AMINOTRANSFERASE 25 IU/L (0-55); ALBUMIN 2.7 g/dL (3.5-5.0); ALBUMIN/GLOBULIN RATIO 0.8 (0.8-2.0); ALKALINE PHOSPHATASE 65 IU/L (40-150); ANION GAP 15.3 mmol/L (8-16); BLOOD UREA NITROGEN 85 mg/dL (7-26); BUN/CREATININE RATIO 72 (6-25); CALCIUM 8.7 mg/dL (8.4-10.2); CARBON DIOXIDE 34 mmol/L (22-29); CHLORIDE 102 mmol/L (98-107); CREATININE, SERUM 1.18 mg/dL (0.72-1.25); EST GLOMERULAR FILTRATION RATE > 60 ML/MIN (60-); GLUCOSE 211 mg/dL (74-118); MAGNESIUM 2.2 MG/DL (1.3-2.1); PHOSPHORUS 3.7 MG/DL (2.3-4.7); POTASSIUM 3.3 mmol/L (3.5-5.1); SODIUM 148 mmol/L (136-145)
[2020-07-03] MEDS: ASCORBIC ACID 500 MG TAB PO SCH ×2 (08:12→20:58)
[2020-07-03] MEDS: PANTOPRAZOLE 40 MG 10ML VIAL IV SCH ×2 (08:12→18:06)
[2020-07-03] MEDS: MULTIVITAMINS/MINERALS TAB PO SCH (08:12)
[2020-07-03] MEDS: ZINC SULFATE 220 MG CAP PO SCH (08:12)
[2020-07-03] MEDS: AMIODARONE HCL 200 MG TAB PO SCH ×2 (08:12→18:06)
[2020-07-03] MEDS: FUROSEMIDE INJ 10 MG/ML 4 ML VIAL IV SCH ×2 (10:53→20:58)
[2020-07-03] MEDS: ALBUMIN 25% 25GM 100ML 0.25 GM/ML BTL IV SCH ×2 (12:44→18:06)
[2020-07-03 13:16] LABS: ABG HCO3 35 mmol/L (22-26); ABG PCO2 59 mmHg (35-45); ABG PH 7.38 (7.35-7.45); ABG PO2 81 mmHg (80-105); ABG TCO2 37
[2020-07-03] MEDS ORDERED: POTASSIUM CHLORIDE 20MEQ/15ML UDC NG ONE (15:00)
[2020-07-03 15:40] LABS: ABG HCO3 36 mmol/L (22-26); ABG PCO2 49 mmHg (35-45); ABG PH 7.48 (7.35-7.45); ABG PO2 49 mmHg (80-105); ABG TCO2 38
[2020-07-03] MEDS: INSULIN GLARGINE 100 UNITS/ML VIAL SQ SCH (20:58)
[2020-07-03] MEDS: ROCURONIUM BROMIDE 1,250 MG in SODIUM CHLORIDE 0.9% 250ML 125 ML IV SCH (22:32)
[2020-07-04] VITALS (24 sets, daily range): BP systolic 63–165; BP diastolic 32–54
[2020-07-04] MEDS: INSULIN REGULAR, HUMAN 100 UNIT/1 ML 3ML VIAL SQ SCH ×5 (00:51→23:51)
[2020-07-04] MEDS: MIDAZOLAM HCL 5MG/ML 10ML VIAL 100 ML IV PRN ×4 (04:00→23:53)
[2020-07-04 04:59] LABS: BASOPHILS % 0.4 % (0.0-1.0); EOSINOPHILS # (AUTO) 0.3 (0.0-0.4); EOSINOPHILS % 7.1 % (0.0-6.0); HEMATOCRIT 24.4 % (38.2-49.6); HEMOGLOBIN 7.4 g/dL (14.0-18.0); LYMPHOCYTES # (AUTO) 0.6 (1.0-3.2); LYMPHOCYTES % 12.2 % (18.0-39.1); MEAN CORPUSCULAR HEMOGLOBIN 28.4 pg (28-32); MEAN CORPUSCULAR HGB CONC 30.3 g/dL (31-35); MEAN CORPUSCULAR VOLUME 93.5 fL (81-99); MONOCYTES # (AUTO) 0.3 (0.2-0.8); MONOCYTES % 6.7 % (4.4-11.3); NEUTROPHILS # (AUTO) 3.2 (2.1-6.9); NEUTROPHILS % 71.8 % (38.7-80.0); PLATELET COUNT 134 x10e3/uL (140-360); RED BLOOD COUNT 2.61 x10e6/uL (4.3-5.7); RED CELL DISTRIBUTION WIDTH 15.4 % (11.7-14.4)
[2020-07-04 05:21] LABS: ALANINE AMINOTRANSFERASE 26 IU/L (0-55); ALBUMIN/GLOBULIN RATIO 0.9 (0.8-2.0); ALKALINE PHOSPHATASE 65 IU/L (40-150); ANION GAP 15.2 mmol/L (8-16); BLOOD UREA NITROGEN 88 mg/dL (7-26); BUN/CREATININE RATIO 75 (6-25); CALCIUM 8.6 mg/dL (8.4-10.2); CARBON DIOXIDE 33 mmol/L (22-29); CHLORIDE 103 mmol/L (98-107); CREATININE, SERUM 1.17 mg/dL (0.72-1.25); EST GLOMERULAR FILTRATION RATE > 60 ML/MIN (60-); GLUCOSE 149 mg/dL (74-118); POTASSIUM 3.2 mmol/L (3.5-5.1); SODIUM 148 mmol/L (136-145)
[2020-07-04] MEDS: ALBUMIN 25% 25GM 100ML 0.25 GM/ML BTL IV SCH ×2 (06:04)
[2020-07-04 07:57] LABS: ABG HCO3 36 mmol/L (22-26); ABG PCO2 74 mmHg (35-45); ABG PO2 80 mmHg (80-105)
[2020-07-04 07:58] LABS: ABG TCO2 38
[2020-07-04] MEDS: MULTIVITAMINS/MINERALS TAB PO SCH (08:35)
[2020-07-04] MEDS: PANTOPRAZOLE 40 MG 10ML VIAL IV SCH (08:35)
[2020-07-04] MEDS: ASCORBIC ACID 500 MG TAB PO SCH ×2 (08:35→20:33)
[2020-07-04] MEDS: FUROSEMIDE INJ 10 MG/ML 4 ML VIAL IV SCH (08:35)
[2020-07-04] MEDS: ZINC SULFATE 220 MG CAP PO SCH (08:35)
[2020-07-04] MEDS: AMIODARONE HCL 200 MG TAB PO SCH (08:35)
[2020-07-04] MEDS: FENTANYL 2000MCG/NS 250 250 ML IV PRN ×3 (08:36→23:52)
[2020-07-04] MEDS ORDERED: POTASSIUM CHLORIDE 20MEQ/100ML 100 ML IV PRN (10:15)
[2020-07-04] MEDS ORDERED: POTASSIUM CHLORIDE 20MEQ/100ML 100 ML IV ONE (10:15)
[2020-07-04] MEDS: ENOXAPARIN SOD INJ 40 MG/0.4 ML SYR SC SCH (10:41)
[2020-07-04] MEDS ORDERED: FUROSEMIDE INJ 100 MG in SODIUM CHLORIDE 0.9% 100 ML 90 ML IV SCH (11:00)
[2020-07-04] MEDS: FAMOTIDINE 20 MG/2 ML VIAL IV SCH (18:00)
[2020-07-04] MEDS: ROCURONIUM BROMIDE 1,250 MG in SODIUM CHLORIDE 0.9% 250ML 125 ML IV SCH (20:34)
[2020-07-04] MEDS: INSULIN GLARGINE 100 UNITS/ML VIAL SQ SCH (20:35)
[2020-07-04] MEDS ORDERED: NOREPINEPHRINE 8 MG/D5W 250 ML 250 ML ONE (20:50)
[2020-07-04] MEDS: NOREPINEPHRINE INJ 4MG/4ML 8 MG in DEXTROSE 5% 250ML 250 ML IV SCH (20:59)
[2020-07-04 21:12] LABS: ABG PCO2 84 mmHg (35-45)
[2020-07-04 21:13] LABS: ABG HCO3 33 mmol/L (22-26); ABG PO2 76 mmHg (80-105); ABG TCO2 36
[2020-07-05] VITALS (25 sets, daily range): BP systolic 101–162; BP diastolic 38–59
[2020-07-05 03:01] LABS: ABG HCO3 32 mmol/L (22-26); ABG PCO2 52 mmHg (35-45); ABG PH 7.39 (7.35-7.45); ABG PO2 53 mmHg (80-105); ABG TCO2 34
[2020-07-05 04:23] LABS: BASOPHILS # (AUTO) 0.1 (0.0-0.1); BASOPHILS % 0.6 % (0.0-1.0); EOSINOPHILS # (AUTO) 0.4 (0.0-0.4); EOSINOPHILS % 2.4 % (0.0-6.0); HEMATOCRIT 26.7 % (38.2-49.6); HEMOGLOBIN 8.1 g/dL (14.0-18.0); LYMPHOCYTES # (AUTO) 0.9 (1.0-3.2); LYMPHOCYTES % 5.7 % (18.0-39.1); MEAN CORPUSCULAR HEMOGLOBIN 28.4 pg (28-32); MEAN CORPUSCULAR HGB CONC 30.3 g/dL (31-35); MEAN CORPUSCULAR VOLUME 93.7 fL (81-99); MONOCYTES # (AUTO) 0.8 (0.2-0.8); MONOCYTES % 5.1 % (4.4-11.3); NEUTROPHILS # (AUTO) 13.2 (2.1-6.9); NEUTROPHILS % 84.2 % (38.7-80.0); PLATELET COUNT 256 x10e3/uL (140-360); RED BLOOD COUNT 2.85 x10e6/uL (4.3-5.7); RED CELL DISTRIBUTION WIDTH 15.4 % (11.7-14.4)
[2020-07-05 04:41] LABS: ALBUMIN 2.8 g/dL (3.5-5.0); ALBUMIN/GLOBULIN RATIO 0.8 (0.8-2.0); CALCIUM 8.4 mg/dL (8.4-10.2); CREATININE, SERUM 1.67 mg/dL (0.72-1.25)
[2020-07-05] MEDS: AMIODARONE HCL 200 MG TAB PO SCH (05:10)
[2020-07-05] MEDS: INSULIN REGULAR, HUMAN 100 UNIT/1 ML 3ML VIAL SQ SCH ×3 (05:18→18:22)
[2020-07-05 07:08] LABS: ABG HCO3 31 mmol/L (22-26); ABG PCO2 41 mmHg (35-45); ABG PH 7.49 (7.35-7.45); ABG PO2 127 mmHg (80-105); ABG TCO2 32
[2020-07-05] MEDS ORDERED: SODIUM CHLORIDE 0.9% 1000ML 1,000 ML ONE (08:09)
[2020-07-05] MEDS: FAMOTIDINE 20 MG/2 ML VIAL IV SCH ×2 (09:10→16:18)
[2020-07-05] MEDS: ASCORBIC ACID 500 MG TAB PO SCH ×2 (09:10→22:15)
[2020-07-05] MEDS: MULTIVITAMINS/MINERALS TAB PO SCH (09:10)
[2020-07-05] MEDS: ZINC SULFATE 220 MG CAP PO SCH (09:10)
[2020-07-05] MEDS: MIDODRINE 2.5 MG TAB NG SCH ×3 (09:21→16:18)
[2020-07-05] MEDS: ALBUMIN 25% 12.5GM 0.25 GM/ML BTL IV SCH ×3 (09:21→21:00)
[2020-07-05] MEDS: FENTANYL 2000MCG/NS 250 250 ML IV PRN ×2 (10:20→18:47)
[2020-07-05] MEDS: ENOXAPARIN SOD INJ 40 MG/0.4 ML SYR SC SCH (10:21)
[2020-07-05] MEDS: MIDAZOLAM HCL 5MG/ML 10ML VIAL 100 ML IV PRN ×2 (10:21→19:45)
[2020-07-05 11:07] LABS: CLARITY,URINE SL CLOUDY (CLEAR); COLOR,URINE YELLOW (YELLOW)
[2020-07-05 11:08] LABS: KETONES,URINE NEGATIVE (NEGATIVE); LEUKOCYTE ESTERASE ,URINE TRACE (NEGATIVE); NITRITE,URINE NEGATIVE (NEGATIVE); PROTEIN,URINE DIPSTICK 2+ (NEGATIVE)
[2020-07-05 11:09] LABS: BACTERIA,URINE RARE /HPF; BILIRUBIN,URINE NEGATIVE (NEGATIVE); EPITHELIAL CELLS,URINE FEW /LPF; URINE UROBILINOGEN 1 mg/dL (0.2 - 1)
[2020-07-05 11:26] LABS: ABG PCO2 44 mmHg (35-45); ABG PH 7.43 (7.35-7.45)
[2020-07-05 11:27] LABS: ABG HCO3 39 mmol/L (22-26); ABG PO2 65 mmHg (80-105); ABG TCO2 30
[2020-07-05] MEDS: OCTREOTIDE ACETATE 0.1 MG/ML 100MCG AMP SQ SCH ×2 (14:04→22:00)
[2020-07-05] MEDS: MEROPENEM 1GM 100 ML IV SCH ×2 (14:04→22:00)
[2020-07-05 14:35] LABS: AMYLASE 42 U/L (25-125); LIPASE 9 U/L (8-78)
[2020-07-05] MEDS: ROCURONIUM BROMIDE 1,250 MG in SODIUM CHLORIDE 0.9% 250ML 125 ML IV SCH (19:00)
[2020-07-05] MEDS: NOREPINEPHRINE INJ 4MG/4ML 8 MG in DEXTROSE 5% 250ML 250 ML IV SCH (20:45)
[2020-07-05] MEDS: INSULIN GLARGINE 100 UNITS/ML VIAL SQ SCH (22:00)
[2020-07-06] VITALS (20 sets, daily range): BP systolic 99–143; BP diastolic 40–63
[2020-07-06] MEDS: ALBUMIN 25% 12.5GM 0.25 GM/ML BTL IV SCH ×4 (03:17→21:54)
[2020-07-06] MEDS: MEROPENEM 1GM 100 ML IV SCH ×2 (06:00→13:42)
[2020-07-06] MEDS: OCTREOTIDE ACETATE 0.1 MG/ML 100MCG AMP SQ SCH ×3 (06:00→21:55)
[2020-07-06] MEDS: INSULIN REGULAR, HUMAN 100 UNIT/1 ML 3ML VIAL SQ SCH ×5 (06:00→23:56)
[2020-07-06] MEDS: AMIODARONE HCL 200 MG TAB PO SCH (06:00)
[2020-07-06 06:22] LABS: BASOPHILS # (AUTO) 0.1 (0.0-0.1); BASOPHILS % 0.4 % (0.0-1.0); EOSINOPHILS # (AUTO) 0.9 (0.0-0.4); EOSINOPHILS % 6.7 % (0.0-6.0); HEMATOCRIT 28.3 % (38.2-49.6); HEMOGLOBIN 8.5 g/dL (14.0-18.0); LYMPHOCYTES # (AUTO) 1.3 (1.0-3.2); LYMPHOCYTES % 9.8 % (18.0-39.1); MEAN CORPUSCULAR VOLUME 93.1 fL (81-99); MONOCYTES # (AUTO) 0.7 (0.2-0.8); MONOCYTES % 5.2 % (4.4-11.3); NEUTROPHILS # (AUTO) 10.1 (2.1-6.9); NEUTROPHILS % 74.9 % (38.7-80.0); PLATELET COUNT 253 x10e3/uL (140-360); RED BLOOD COUNT 3.04 x10e6/uL (4.3-5.7); RED CELL DISTRIBUTION WIDTH 15.9 % (11.7-14.4)
[2020-07-06 06:43] LABS: ANION GAP 18.2 mmol/L (8-16); CALCIUM 8.3 mg/dL (8.4-10.2); CREATININE, SERUM 2.11 mg/dL (0.72-1.25); POTASSIUM 4.2 mmol/L (3.5-5.1)
[2020-07-06] MEDS ORDERED: SODIUM CHLORIDE 0.9% 500ML 500 ML IV ONE (07:30)
[2020-07-06 07:43] LABS: ALBUMIN 3.8 g/dL (3.5-5.0); ALBUMIN/GLOBULIN RATIO 1.2 (0.8-2.0)
[2020-07-06 07:59] LABS: MAGNESIUM 2.2 MG/DL (1.3-2.1); PHOSPHORUS 6.5 MG/DL (2.3-4.7)
[2020-07-06] MEDS ORDERED: SODIUM CHLORIDE 0.9% 500ML 500 ML ONE (08:04)
[2020-07-06 10:05] LABS: ABG HCO3 31 mmol/L (22-26); ABG PCO2 74 mmHg (35-45); ABG PH 7.23 (7.35-7.45); ABG PO2 73 mmHg (80-105); ABG TCO2 33
[2020-07-06] MEDS: FAMOTIDINE 20 MG/2 ML VIAL IV SCH ×2 (10:05→16:51)
[2020-07-06] MEDS: ASCORBIC ACID 500 MG TAB PO SCH ×2 (10:05→21:54)
[2020-07-06] MEDS: MULTIVITAMINS/MINERALS TAB PO SCH (10:05)
[2020-07-06] MEDS: SODIUM CHLORIDE 0.9% 1000ML 1,000 ML IV SCH ×2 (10:05→20:35)
[2020-07-06] MEDS: ZINC SULFATE 220 MG CAP PO SCH (10:06)
[2020-07-06] MEDS: MIDODRINE 2.5 MG TAB NG SCH ×3 (10:06→16:51)
[2020-07-06] MEDS: ENOXAPARIN SOD INJ 40 MG/0.4 ML SYR SC SCH (10:06)
[2020-07-06 17:31] LABS: ABG HCO3 29 mmol/L (22-26); ABG PCO2 65 mmHg (35-45); ABG PH 7.26 (7.35-7.45); ABG PO2 60 mmHg (80-105); ABG TCO2 31
[2020-07-06] MEDS: ROCURONIUM BROMIDE 1,250 MG in SODIUM CHLORIDE 0.9% 250ML 125 ML IV SCH (19:00)
[2020-07-06] MEDS: MIDAZOLAM HCL 5MG/ML 10ML VIAL 100 ML IV PRN (20:35)
[2020-07-06] MEDS: NOREPINEPHRINE INJ 4MG/4ML 8 MG in DEXTROSE 5% 250ML 250 ML IV SCH (20:45)
[2020-07-06] MEDS: INSULIN GLARGINE 100 UNITS/ML VIAL SQ SCH (21:56)
[2020-07-06] MEDS: FENTANYL 2000MCG/NS 250 250 ML IV PRN (23:56)
[2020-07-07] VITALS (24 sets, daily range): BP systolic 111–169; BP diastolic 46–70
[2020-07-07] MEDS: MEROPENEM 1GM 100 ML IV SCH ×2 (02:21→14:31)
[2020-07-07] MEDS: ALBUMIN 25% 12.5GM 0.25 GM/ML BTL IV SCH (02:21)
[2020-07-07] MEDS: DEXTROSE 50% SYRINGE 50 ML IV PRN (05:07)
[2020-07-07 06:20] LABS: BASOPHILS % 0.3 % (0.0-1.0); EOSINOPHILS # (AUTO) 0.5 (0.0-0.4); EOSINOPHILS % 7.8 % (0.0-6.0); HEMATOCRIT 24.3 % (38.2-49.6); HEMOGLOBIN 7.4 g/dL (14.0-18.0); LYMPHOCYTES # (AUTO) 0.3 (1.0-3.2); LYMPHOCYTES % 5.6 % (18.0-39.1); MEAN CORPUSCULAR HEMOGLOBIN 27.8 pg (28-32); MEAN CORPUSCULAR HGB CONC 30.5 g/dL (31-35); MEAN CORPUSCULAR VOLUME 91.4 fL (81-99); MONOCYTES # (AUTO) 0.3 (0.2-0.8); MONOCYTES % 4.5 % (4.4-11.3); NEUTROPHILS # (AUTO) 4.5 (2.1-6.9); NEUTROPHILS % 77.8 % (38.7-80.0); PLATELET COUNT 175 x10e3/uL (140-360); RED BLOOD COUNT 2.66 x10e6/uL (4.3-5.7); RED CELL DISTRIBUTION WIDTH 15.5 % (11.7-14.4)
[2020-07-07] MEDS: AMIODARONE HCL 200 MG TAB PO SCH (06:45)
[2020-07-07] MEDS: SODIUM CHLORIDE 0.9% 1000ML 1,000 ML IV SCH ×2 (06:45→16:46)
[2020-07-07] MEDS: INSULIN REGULAR, HUMAN 100 UNIT/1 ML 3ML VIAL SQ SCH ×3 (06:45→17:53)
[2020-07-07] MEDS: OCTREOTIDE ACETATE 0.1 MG/ML 100MCG AMP SQ SCH ×3 (06:46→21:08)
[2020-07-07 06:47] LABS: ALBUMIN 3.4 g/dL (3.5-5.0); ALBUMIN/GLOBULIN RATIO 1.3 (0.8-2.0); ANION GAP 19.8 mmol/L (8-16); CALCIUM 7.6 mg/dL (8.4-10.2); CREATININE, SERUM 2.18 mg/dL (0.72-1.25); POTASSIUM 3.8 mmol/L (3.5-5.1)
[2020-07-07 07:08] LABS: MAGNESIUM 2.1 MG/DL (1.3-2.1); PHOSPHORUS 6.4 MG/DL (2.3-4.7)
[2020-07-07 07:43] LABS: ABG HCO3 30 mmol/L (22-26); ABG PCO2 101 mmHg (35-45); ABG PH 7.08 (7.35-7.45); ABG PO2 116 mmHg (80-105); ABG TCO2 33
[2020-07-07] MEDS: ASCORBIC ACID 500 MG TAB PO SCH ×2 (08:26→21:07)
[2020-07-07] MEDS: ZINC SULFATE 220 MG CAP PO SCH (08:26)
[2020-07-07] MEDS: MULTIVITAMINS/MINERALS TAB PO SCH (08:26)
[2020-07-07] MEDS: MIDODRINE 2.5 MG TAB NG SCH ×3 (08:26→16:46)
[2020-07-07] MEDS: FAMOTIDINE 20 MG/2 ML VIAL IV SCH ×2 (08:26→16:46)
[2020-07-07] MEDS: MIDAZOLAM HCL 5MG/ML 10ML VIAL 100 ML IV PRN ×2 (08:49→20:15)
[2020-07-07] MEDS: ENOXAPARIN SOD INJ 40 MG/0.4 ML SYR SC SCH (10:40)
[2020-07-07] MEDS: ROCURONIUM BROMIDE 1,250 MG in SODIUM CHLORIDE 0.9% 250ML 125 ML IV SCH ×2 (12:07→16:55)
[2020-07-07] MEDS: FENTANYL 2000MCG/NS 250 250 ML IV PRN (14:33)
[2020-07-07 14:37] LABS: ABG HCO3 27 mmol/L (22-26); ABG PCO2 58 mmHg (35-45); ABG PH 7.27 (7.35-7.45); ABG PO2 71 mmHg (80-105); ABG TCO2 29
[2020-07-07] MEDS ORDERED: VECURONIUM BROMIDE FOR INJ 20 MG VIAL ONE (16:37)
[2020-07-07] MEDS ORDERED: VECURONIUM BROMIDE FOR INJ 20 MG VIAL IV STA (16:45)
[2020-07-07] MEDS: INSULIN GLARGINE 100 UNITS/ML VIAL SQ SCH (21:00)
[2020-07-08] VITALS (26 sets, daily range): BP systolic 111–187; BP diastolic 37–60
[2020-07-08] MEDS: FENTANYL 2000MCG/NS 250 250 ML IV PRN ×2 (00:53→11:57)
[2020-07-08] MEDS: MEROPENEM 1GM 100 ML IV SCH ×2 (02:16→14:14)
[2020-07-08] MEDS: OCTREOTIDE ACETATE 0.1 MG/ML 100MCG AMP SQ SCH (05:47)
[2020-07-08] MEDS: AMIODARONE HCL 200 MG TAB PO SCH (05:47)
[2020-07-08] MEDS: SODIUM CHLORIDE 0.9% 1000ML 1,000 ML IV SCH (05:48)
[2020-07-08 05:49] LABS: BASOPHILS % 0.4 % (0.0-1.0); EOSINOPHILS # (AUTO) 0.4 (0.0-0.4); EOSINOPHILS % 6.5 % (0.0-6.0); HEMOGLOBIN 7.9 g/dL (14.0-18.0); LYMPHOCYTES # (AUTO) 0.4 (1.0-3.2); LYMPHOCYTES % 7.6 % (18.0-39.1); MEAN CORPUSCULAR HEMOGLOBIN 29.5 pg (28-32); MEAN CORPUSCULAR HGB CONC 31.6 g/dL (31-35); MEAN CORPUSCULAR VOLUME 93.3 fL (81-99); MONOCYTES # (AUTO) 0.3 (0.2-0.8); MONOCYTES % 5.8 % (4.4-11.3); NEUTROPHILS # (AUTO) 4.1 (2.1-6.9); NEUTROPHILS % 72.7 % (38.7-80.0); PLATELET COUNT 188 x10e3/uL (140-360); RED BLOOD COUNT 2.68 x10e6/uL (4.3-5.7); RED CELL DISTRIBUTION WIDTH 15.7 % (11.7-14.4)
[2020-07-08] MEDS: INSULIN REGULAR, HUMAN 100 UNIT/1 ML 3ML VIAL SQ SCH ×4 (06:00→17:59)
[2020-07-08 06:27] LABS: ALBUMIN 3.1 g/dL (3.5-5.0); ALBUMIN/GLOBULIN RATIO 1.1 (0.8-2.0); ANION GAP 14.8 mmol/L (8-16); CALCIUM 7.6 mg/dL (8.4-10.2); CREATININE, SERUM 1.84 mg/dL (0.72-1.25); PHOSPHORUS 5.6 MG/DL (2.3-4.7); POTASSIUM 3.8 mmol/L (3.5-5.1)
[2020-07-08] MEDS: MIDAZOLAM HCL 5MG/ML 10ML VIAL 100 ML IV PRN ×2 (06:31→16:44)
[2020-07-08] MEDS: ZINC SULFATE 220 MG CAP PO SCH (08:47)
[2020-07-08] MEDS: FAMOTIDINE 20 MG/2 ML VIAL IV SCH ×2 (08:47→17:24)
[2020-07-08] MEDS: MULTIVITAMINS/MINERALS TAB PO SCH (08:47)
[2020-07-08] MEDS: ASCORBIC ACID 500 MG TAB PO SCH ×2 (08:47→21:13)
[2020-07-08] MEDS: MIDODRINE 2.5 MG TAB NG SCH ×2 (08:47→17:24)
[2020-07-08 10:47] LABS: ABG HCO3 29 mmol/L (22-26); ABG PCO2 62 mmHg (35-45); ABG PH 7.28 (7.35-7.45); ABG PO2 92 mmHg (80-105); ABG TCO2 31
[2020-07-08] MEDS: ENOXAPARIN SOD INJ 40 MG/0.4 ML SYR SC SCH (11:57)
[2020-07-08 16:14] LABS: ABG HCO3 27 mmol/L (22-26); ABG PCO2 45 mmHg (35-45); ABG PH 7.39 (7.35-7.45); ABG PO2 53 mmHg (80-105); ABG TCO2 28
[2020-07-08] MEDS: ROCURONIUM BROMIDE 1,250 MG in SODIUM CHLORIDE 0.9% 250ML 125 ML IV SCH (17:59)
[2020-07-08] MEDS: DEXTROSE 50% SYRINGE 50 ML IV PRN (18:05)
[2020-07-08] MEDS: INSULIN GLARGINE 100 UNITS/ML VIAL SQ SCH (21:00)
[2020-07-09] VITALS (24 sets, daily range): BP systolic 135–184; BP diastolic 48–67
[2020-07-09] MEDS: DEXTROSE 50% SYRINGE 50 ML IV PRN (01:15)
[2020-07-09] MEDS: MIDAZOLAM HCL 5MG/ML 10ML VIAL 100 ML IV PRN ×4 (01:40→22:58)
[2020-07-09] MEDS: MEROPENEM 1GM 100 ML IV SCH ×2 (02:12→14:20)
[2020-07-09 05:40] LABS: BASOPHILS % 0.4 % (0.0-1.0); EOSINOPHILS # (AUTO) 0.6 (0.0-0.4); HEMATOCRIT 25.1 % (38.2-49.6); HEMOGLOBIN 7.8 g/dL (14.0-18.0); LYMPHOCYTES # (AUTO) 0.6 (1.0-3.2); MEAN CORPUSCULAR HGB CONC 31.1 g/dL (31-35); MONOCYTES # (AUTO) 0.6 (0.2-0.8); MONOCYTES % 8.4 % (4.4-11.3); NEUTROPHILS # (AUTO) 4.7 (2.1-6.9); NEUTROPHILS % 68.8 % (38.7-80.0); PLATELET COUNT 233 x10e3/uL (140-360); RED BLOOD COUNT 2.79 x10e6/uL (4.3-5.7)
[2020-07-09] MEDS: INSULIN REGULAR, HUMAN 100 UNIT/1 ML 3ML VIAL SQ SCH ×4 (06:00→18:00)
[2020-07-09 06:01] LABS: ALBUMIN 2.9 g/dL (3.5-5.0); ALBUMIN/GLOBULIN RATIO 0.9 (0.8-2.0); ANION GAP 16.9 mmol/L (8-16); CALCIUM 7.7 mg/dL (8.4-10.2); CREATININE, SERUM 1.68 mg/dL (0.72-1.25); POTASSIUM 3.9 mmol/L (3.5-5.1)
[2020-07-09] MEDS: AMIODARONE HCL 200 MG TAB PO SCH (06:18)
[2020-07-09 07:40] LABS: BAND NEUTROPHILS % (MANUAL) 2 %; EOSINOPHILS % (MANUAL) 9 % (0-7); LYMPHOCYTES % (MANUAL) 6 % (19-48); METAMYELOCYTES % (MANUAL) 1 % (0-0); MONOCYTES % (MANUAL) 4 % (3.4-9.0); NEUTROPHILS % (MANUAL) 78 % (40-74)
[2020-07-09 07:41] LABS: HYPOCHROMASIA SLIGHT; OVALOCYTES FEW; PLATELET ESTIMATE ADEQUATE; PLATELET MORPHOLOGY COMMENT NORMAL; POLYCHROMASIA FEW; RBC MORPHOLOGY COMMENT NORMAL
[2020-07-09] MEDS: FAMOTIDINE 20 MG/2 ML VIAL IV SCH ×2 (08:06→17:57)
[2020-07-09] MEDS: ASCORBIC ACID 500 MG TAB PO SCH ×2 (08:07→21:11)
[2020-07-09] MEDS: MIDODRINE 2.5 MG TAB NG SCH (08:07)
[2020-07-09] MEDS: MULTIVITAMINS/MINERALS TAB PO SCH (08:07)
[2020-07-09] MEDS: ZINC SULFATE 220 MG CAP PO SCH (08:07)
[2020-07-09] MEDS ORDERED: FUROSEMIDE INJ 10 MG/ML 4 ML VIAL IV ONE (09:00)
[2020-07-09] MEDS ORDERED: CALCIUM GLUCONATE 10% INJ 9.3 MEQ in SODIUM CHLORIDE 0.9% 100 ML 100 ML IV ONE (09:30)
[2020-07-09] MEDS: FENTANYL 2000MCG/NS 250 250 ML IV PRN ×2 (10:00→20:50)
[2020-07-09] MEDS: ENOXAPARIN SOD INJ 40 MG/0.4 ML SYR SC SCH (10:03)
[2020-07-09 15:35] LABS: ABG HCO3 27 mmol/L (22-26); ABG PCO2 45 mmHg (35-45); ABG PH 7.38 (7.35-7.45); ABG PO2 59 mmHg (80-105); ABG TCO2 28
[2020-07-09] MEDS: ROCURONIUM BROMIDE 1,250 MG in SODIUM CHLORIDE 0.9% 250ML 125 ML IV SCH (16:42)
[2020-07-10] VITALS (26 sets, daily range): BP systolic 117–165; BP diastolic 43–76
[2020-07-10] MEDS: INSULIN REGULAR, HUMAN 100 UNIT/1 ML 3ML VIAL SQ SCH ×4 (00:30→18:00)
[2020-07-10] MEDS: MEROPENEM 1GM 100 ML IV SCH (01:36)
[2020-07-10] MEDS: FENTANYL 2000MCG/NS 250 250 ML IV PRN ×4 (01:37→20:00)
[2020-07-10] MEDS: MIDAZOLAM HCL 5MG/ML 10ML VIAL 100 ML IV PRN ×4 (04:05→21:21)
[2020-07-10] MEDS: AMIODARONE HCL 200 MG TAB PO SCH (05:29)
[2020-07-10 06:14] LABS: ALBUMIN 2.6 g/dL (3.5-5.0); ALBUMIN/GLOBULIN RATIO 0.9 (0.8-2.0); ANION GAP 15.6 mmol/L (8-16); CALCIUM 7.5 mg/dL (8.4-10.2); CREATININE, SERUM 1.4 mg/dL (0.72-1.25); MAGNESIUM 1.9 MG/DL (1.3-2.1); PHOSPHORUS 4.6 MG/DL (2.3-4.7); POTASSIUM 3.6 mmol/L (3.5-5.1)
[2020-07-10 07:42] LABS: BASOPHILS % 0.4 % (0.0-1.0); EOSINOPHILS # (AUTO) 0.5 (0.0-0.4); EOSINOPHILS % 8.9 % (0.0-6.0); HEMATOCRIT 23.2 % (38.2-49.6); HEMOGLOBIN 7.1 g/dL (14.0-18.0); LYMPHOCYTES # (AUTO) 0.5 (1.0-3.2); LYMPHOCYTES % 10.7 % (18.0-39.1); MEAN CORPUSCULAR HGB CONC 30.6 g/dL (31-35); MEAN CORPUSCULAR VOLUME 91.3 fL (81-99); MONOCYTES # (AUTO) 0.4 (0.2-0.8); MONOCYTES % 7.4 % (4.4-11.3); NEUTROPHILS # (AUTO) 3.4 (2.1-6.9); NEUTROPHILS % 67.4 % (38.7-80.0); PLATELET COUNT 217 x10e3/uL (140-360); RED BLOOD COUNT 2.54 x10e6/uL (4.3-5.7); RED CELL DISTRIBUTION WIDTH 16.2 % (11.7-14.4)
[2020-07-10] MEDS: MULTIVITAMINS/MINERALS TAB PO SCH (08:17)
[2020-07-10] MEDS: ZINC SULFATE 220 MG CAP PO SCH (08:17)
[2020-07-10] MEDS: ASCORBIC ACID 500 MG TAB PO SCH ×2 (08:17→21:19)
[2020-07-10] MEDS: FAMOTIDINE 20 MG/2 ML VIAL IV SCH ×2 (09:26→18:30)
[2020-07-10] MEDS ORDERED: SODIUM CHLORIDE 0.9% 250ML 250 ML IV NR (09:45)
[2020-07-10] MEDS ORDERED: ACETAMINOPHEN 325 MG TAB PO ONE (09:45)
[2020-07-10] MEDS ORDERED: FUROSEMIDE INJ 10 MG/ML 4 ML VIAL IV NR ×2 (09:45→18:30)
[2020-07-10] MEDS ORDERED: FUROSEMIDE INJ 10 MG/ML 2 ML VIAL IV NR (09:45)
[2020-07-10 10:27] LABS: ABG HCO3 28 mmol/L (22-26); ABG PCO2 51 mmHg (35-45); ABG PH 7.34 (7.35-7.45); ABG PO2 71 mmHg (80-105); ABG TCO2 29
[2020-07-10] MEDS: ENOXAPARIN SOD INJ 40 MG/0.4 ML SYR SC SCH (11:23)
[2020-07-10] MEDS: AMPICILLIN SOD 500 MG in SODIUM CHLORIDE 0.9% 50ML 50 ML IV SCH (14:02)
[2020-07-10] MEDS: CEFTRIAXONE SOD 1 GM/NS 50 ML 50 ML IV SCH (14:08)
[2020-07-10] MEDS ORDERED: SODIUM CHLORIDE 0.9% 250ML 250 ML ONE (15:54)
[2020-07-10] MEDS: ROCURONIUM BROMIDE 1,250 MG in SODIUM CHLORIDE 0.9% 250ML 125 ML IV SCH (18:30)
[2020-07-11] VITALS (26 sets, daily range): BP systolic 115–181; BP diastolic 43–74
[2020-07-11] MEDS: MIDAZOLAM HCL 5MG/ML 10ML VIAL 100 ML IV PRN ×5 (01:15→23:46)
[2020-07-11] MEDS: AMPICILLIN SOD 500 MG in SODIUM CHLORIDE 0.9% 50ML 50 ML IV SCH ×2 (01:34→13:14)
[2020-07-11] MEDS: CEFTRIAXONE SOD 1 GM/NS 50 ML 50 ML IV SCH ×2 (01:35→13:00)
[2020-07-11] MEDS: FENTANYL 2000MCG/NS 250 250 ML IV PRN ×4 (03:12→21:46)
[2020-07-11 06:07] LABS: BASOPHILS % 0.7 % (0.0-1.0); EOSINOPHILS # (AUTO) 0.4 (0.0-0.4); EOSINOPHILS % 6.8 % (0.0-6.0); HEMATOCRIT 25.9 % (38.2-49.6); HEMOGLOBIN 8.3 g/dL (14.0-18.0); LYMPHOCYTES # (AUTO) 0.5 (1.0-3.2); LYMPHOCYTES % 8.6 % (18.0-39.1); MEAN CORPUSCULAR HEMOGLOBIN 30.2 pg (28-32); MEAN CORPUSCULAR VOLUME 94.2 fL (81-99); MONOCYTES # (AUTO) 0.5 (0.2-0.8); MONOCYTES % 7.8 % (4.4-11.3); NEUTROPHILS # (AUTO) 4.3 (2.1-6.9); NEUTROPHILS % 70.1 % (38.7-80.0); PLATELET COUNT 213 x10e3/uL (140-360); RED BLOOD COUNT 2.75 x10e6/uL (4.3-5.7); RED CELL DISTRIBUTION WIDTH 16.2 % (11.7-14.4)
[2020-07-11] MEDS: AMIODARONE HCL 200 MG TAB PO SCH (06:32)
[2020-07-11] MEDS: INSULIN REGULAR, HUMAN 100 UNIT/1 ML 3ML VIAL SQ SCH ×5 (06:33→23:49)
[2020-07-11 06:50] LABS: ALBUMIN 2.6 g/dL (3.5-5.0); ALBUMIN/GLOBULIN RATIO 0.8 (0.8-2.0); CALCIUM 7.7 mg/dL (8.4-10.2); CREATININE, SERUM 1.42 mg/dL (0.72-1.25)
[2020-07-11] MEDS: FAMOTIDINE 20 MG/2 ML VIAL IV SCH ×2 (09:44→17:20)
[2020-07-11] MEDS: MULTIVITAMINS/MINERALS TAB PO SCH (09:44)
[2020-07-11] MEDS: ZINC SULFATE 220 MG CAP PO SCH (09:44)
[2020-07-11] MEDS: ASCORBIC ACID 500 MG TAB PO SCH ×2 (09:44→22:51)
[2020-07-11 10:52] LABS: ABG HCO3 29 mmol/L (22-26); ABG PCO2 56 mmHg (35-45); ABG PH 7.32 (7.35-7.45); ABG PO2 75 mmHg (80-105); ABG TCO2 30
[2020-07-11] MEDS: ENOXAPARIN SOD INJ 40 MG/0.4 ML SYR SC SCH (11:21)
[2020-07-11] MEDS: ROCURONIUM BROMIDE 1,250 MG in SODIUM CHLORIDE 0.9% 250ML 125 ML IV SCH (21:42)
[2020-07-12] VITALS (24 sets, daily range): BP systolic 125–171; BP diastolic 44–72
[2020-07-12] MEDS: FENTANYL 2000MCG/NS 250 250 ML IV PRN ×4 (01:09→22:46)
[2020-07-12] MEDS: AMPICILLIN SOD 500 MG in SODIUM CHLORIDE 0.9% 50ML 50 ML IV SCH ×2 (02:21→13:14)
[2020-07-12] MEDS: CEFTRIAXONE SOD 1 GM/NS 50 ML 50 ML IV SCH ×2 (02:54→14:48)
[2020-07-12 05:19] LABS: BASOPHILS % 0.5 % (0.0-1.0); EOSINOPHILS # (AUTO) 0.5 (0.0-0.4); EOSINOPHILS % 7.4 % (0.0-6.0); HEMOGLOBIN 8.6 g/dL (14.0-18.0); LYMPHOCYTES # (AUTO) 0.7 (1.0-3.2); MEAN CORPUSCULAR HEMOGLOBIN 28.9 pg (28-32); MEAN CORPUSCULAR HGB CONC 30.7 g/dL (31-35); MONOCYTES # (AUTO) 0.5 (0.2-0.8); MONOCYTES % 8.9 % (4.4-11.3); NEUTROPHILS # (AUTO) 4.1 (2.1-6.9); NEUTROPHILS % 66.8 % (38.7-80.0); PLATELET COUNT 242 x10e3/uL (140-360); RED BLOOD COUNT 2.98 x10e6/uL (4.3-5.7); RED CELL DISTRIBUTION WIDTH 16.4 % (11.7-14.4)
[2020-07-12 05:30] LABS: ALBUMIN 2.7 g/dL (3.5-5.0); ALBUMIN/GLOBULIN RATIO 0.8 (0.8-2.0); ANION GAP 17.9 mmol/L (8-16); CALCIUM 8.1 mg/dL (8.4-10.2); CREATININE, SERUM 1.39 mg/dL (0.72-1.25); POTASSIUM 3.9 mmol/L (3.5-5.1)
[2020-07-12] MEDS: MIDAZOLAM HCL 5MG/ML 10ML VIAL 100 ML IV PRN ×4 (05:44→20:42)
[2020-07-12] MEDS: AMIODARONE HCL 200 MG TAB PO SCH (06:22)
[2020-07-12] MEDS: INSULIN REGULAR, HUMAN 100 UNIT/1 ML 3ML VIAL SQ SCH ×4 (06:35→23:57)
[2020-07-12] MEDS: FAMOTIDINE 20 MG/2 ML VIAL IV SCH ×2 (08:44→17:01)
[2020-07-12] MEDS: MULTIVITAMINS/MINERALS TAB PO SCH (08:44)
[2020-07-12] MEDS: ZINC SULFATE 220 MG CAP PO SCH (08:45)
[2020-07-12] MEDS: ASCORBIC ACID 500 MG TAB PO SCH (08:45)
[2020-07-12 09:08] LABS: ABG HCO3 28 mmol/L (22-26); ABG PCO2 53 mmHg (35-45); ABG PH 7.32 (7.35-7.45); ABG PO2 60 mmHg (80-105); ABG TCO2 29
[2020-07-12] MEDS ORDERED: FUROSEMIDE INJ 10 MG/ML 4 ML VIAL IV ONE (10:15)
[2020-07-12] MEDS: ENOXAPARIN SOD INJ 40 MG/0.4 ML SYR SC SCH (11:13)
[2020-07-12] MEDS: ROCURONIUM BROMIDE 1,250 MG in SODIUM CHLORIDE 0.9% 250ML 125 ML IV SCH (19:15)
[2020-07-12] MEDS ORDERED: INSULIN GLARGINE 100 UNITS/ML VIAL SQ SCH (21:00)
[2020-07-13] VITALS (25 sets, daily range): BP systolic 116–182; BP diastolic 50–68
[2020-07-13] MEDS: AMPICILLIN SOD 500 MG in SODIUM CHLORIDE 0.9% 50ML 50 ML IV SCH ×2 (01:01→12:49)
[2020-07-13] MEDS: CEFTRIAXONE SOD 1 GM/NS 50 ML 50 ML IV SCH ×2 (01:01→13:03)
[2020-07-13] MEDS: MIDAZOLAM HCL 5MG/ML 10ML VIAL 100 ML IV PRN ×5 (02:54→23:56)
[2020-07-13 04:32] LABS: BASOPHILS % 0.4 % (0.0-1.0); EOSINOPHILS # (AUTO) 0.5 (0.0-0.4); EOSINOPHILS % 9.1 % (0.0-6.0); HEMATOCRIT 24.5 % (38.2-49.6); HEMOGLOBIN 7.4 g/dL (14.0-18.0); LYMPHOCYTES # (AUTO) 0.6 (1.0-3.2); LYMPHOCYTES % 11.5 % (18.0-39.1); MEAN CORPUSCULAR HEMOGLOBIN 29.1 pg (28-32); MEAN CORPUSCULAR HGB CONC 30.2 g/dL (31-35); MEAN CORPUSCULAR VOLUME 96.5 fL (81-99); MONOCYTES # (AUTO) 0.4 (0.2-0.8); MONOCYTES % 8.9 % (4.4-11.3); NEUTROPHILS # (AUTO) 3.3 (2.1-6.9); NEUTROPHILS % 65.9 % (38.7-80.0); PLATELET COUNT 216 x10e3/uL (140-360); RED BLOOD COUNT 2.54 x10e6/uL (4.3-5.7)
[2020-07-13 04:50] LABS: ALANINE AMINOTRANSFERASE 19 IU/L (0-55); ALBUMIN 2.3 g/dL (3.5-5.0); ALBUMIN/GLOBULIN RATIO 0.7 (0.8-2.0); ALKALINE PHOSPHATASE 87 IU/L (40-150); ANION GAP 15.5 mmol/L (8-16); BLOOD UREA NITROGEN 79 mg/dL (7-26); BUN/CREATININE RATIO 69 (6-25); CALCIUM 7.1 mg/dL (8.4-10.2); CARBON DIOXIDE 22 mmol/L (22-29); CHLORIDE 112 mmol/L (98-107); CREATININE, SERUM 1.15 mg/dL (0.72-1.25); EST GLOMERULAR FILTRATION RATE > 60 ML/MIN (60-); GLUCOSE 201 mg/dL (74-118); POTASSIUM 3.5 mmol/L (3.5-5.1); SODIUM 146 mmol/L (136-145)
[2020-07-13 05:10] LABS: MAGNESIUM 1.7 MG/DL (1.3-2.1); PHOSPHORUS 3.8 MG/DL (2.3-4.7)
[2020-07-13] MEDS: FENTANYL 2000MCG/NS 250 250 ML IV PRN ×3 (05:20→19:48)
[2020-07-13] MEDS: AMIODARONE HCL 200 MG TAB PO SCH (05:21)
[2020-07-13] MEDS: INSULIN REGULAR, HUMAN 100 UNIT/1 ML 3ML VIAL SQ SCH ×3 (05:57→17:33)
[2020-07-13] MEDS: ROCURONIUM BROMIDE 1,250 MG in SODIUM CHLORIDE 0.9% 250ML 125 ML IV SCH (07:10)
[2020-07-13] MEDS: FAMOTIDINE 20 MG/2 ML VIAL IV SCH ×2 (08:13→16:36)
[2020-07-13 08:59] LABS: ABG HCO3 30 mmol/L (22-26); ABG PCO2 59 mmHg (35-45); ABG PH 7.31 (7.35-7.45); ABG PO2 67 mmHg (80-105); ABG TCO2 32
[2020-07-13] MEDS ORDERED: POTASSIUM CHLORIDE 10MEQ/100ML 200 ML IV ONE (10:15)
[2020-07-13] MEDS ORDERED: CALCIUM GLUCONATE 10% INJ 9.3 MEQ in SODIUM CHLORIDE 0.9% 100 ML 100 ML IV ONE (10:30)
[2020-07-13] MEDS: ENOXAPARIN SOD INJ 40 MG/0.4 ML SYR SC SCH (10:38)
[2020-07-13] MEDS ORDERED: CALCIUM GLUCONATE 10% INJ 0.465 MEQ/ML VIAL ONE (13:04)
[2020-07-13] MEDS ORDERED: FUROSEMIDE INJ 10 MG/ML 4 ML VIAL IV ONE (16:15)
[2020-07-13] MEDS: INSULIN GLARGINE 100 UNITS/ML VIAL SQ SCH (21:08)
[2020-07-14] VITALS (24 sets, daily range): BP systolic 103–182; BP diastolic 37–88
[2020-07-14] MEDS: INSULIN REGULAR, HUMAN 100 UNIT/1 ML 3ML VIAL SQ SCH ×5 (00:55→23:33)
[2020-07-14] MEDS: AMPICILLIN SOD 500 MG in SODIUM CHLORIDE 0.9% 50ML 50 ML IV SCH ×3 (01:00→15:44)
[2020-07-14] MEDS: FENTANYL 2000MCG/NS 250 250 ML IV PRN ×4 (02:36→23:27)
[2020-07-14] MEDS: CEFTRIAXONE SOD 1 GM/NS 50 ML 50 ML IV SCH ×2 (02:36→14:11)
[2020-07-14 04:15] LABS: BASOPHILS % 0.3 % (0.0-1.0); EOSINOPHILS # (AUTO) 0.6 (0.0-0.4); EOSINOPHILS % 9.4 % (0.0-6.0); HEMATOCRIT 28.1 % (38.2-49.6); HEMOGLOBIN 8.4 g/dL (14.0-18.0); LYMPHOCYTES # (AUTO) 0.6 (1.0-3.2); LYMPHOCYTES % 10.2 % (18.0-39.1); MEAN CORPUSCULAR HEMOGLOBIN 28.4 pg (28-32); MEAN CORPUSCULAR HGB CONC 29.9 g/dL (31-35); MEAN CORPUSCULAR VOLUME 94.9 fL (81-99); MONOCYTES # (AUTO) 0.5 (0.2-0.8); MONOCYTES % 7.8 % (4.4-11.3); NEUTROPHILS % 69.1 % (38.7-80.0); PLATELET COUNT 216 x10e3/uL (140-360); RED BLOOD COUNT 2.96 x10e6/uL (4.3-5.7); RED CELL DISTRIBUTION WIDTH 17.4 % (11.7-14.4)
[2020-07-14 04:38] LABS: ALBUMIN 2.6 g/dL (3.5-5.0); ALBUMIN/GLOBULIN RATIO 0.7 (0.8-2.0); ANION GAP 16.2 mmol/L (8-16); CALCIUM 8.2 mg/dL (8.4-10.2); CREATININE, SERUM 1.22 mg/dL (0.72-1.25); POTASSIUM 4.2 mmol/L (3.5-5.1)
[2020-07-14] MEDS: AMIODARONE HCL 200 MG TAB PO SCH (05:09)
[2020-07-14] MEDS: MIDAZOLAM HCL 5MG/ML 10ML VIAL 100 ML IV PRN ×4 (05:28→21:21)
[2020-07-14] MEDS: ALBUMIN 25% 25GM 100ML 100 ML IV SCH ×3 (09:41→21:21)
[2020-07-14] MEDS: FAMOTIDINE 20 MG/2 ML VIAL IV SCH ×2 (09:41→17:18)
[2020-07-14] MEDS: FUROSEMIDE INJ 10 MG/ML 4 ML VIAL IV SCH ×2 (09:41→21:29)
[2020-07-14] MEDS: DEXTROSE 5% 1,000 ML IV SCH (09:42)
[2020-07-14] MEDS: ENOXAPARIN SOD INJ 40 MG/0.4 ML SYR SC SCH (10:58)
[2020-07-14] MEDS ORDERED: ALBUMIN 25% 25GM 100ML 0.25 GM/ML BTL IV SCH (12:00)
[2020-07-14 14:36] LABS: ABG PH 7.28 (7.35-7.45)
[2020-07-14 16:32] LABS: ABG HCO3 31 mmol/L (22-26); ABG PCO2 60 mmHg (35-45); ABG PH 7.32 (7.35-7.45); ABG PO2 70 mmHg (80-105); ABG TCO2 33
[2020-07-14] MEDS: ROCURONIUM BROMIDE 1,250 MG in SODIUM CHLORIDE 0.9% 250ML 125 ML IV SCH (21:23)
[2020-07-14] MEDS: INSULIN GLARGINE 100 UNITS/ML VIAL SQ SCH (21:25)
[2020-07-14] MEDS: ACETAMINOPHEN 325 MG TAB PO PRN (23:32)
[2020-07-15] VITALS (26 sets, daily range): BP systolic 85–154; BP diastolic 38–62
[2020-07-15] MEDS: CEFTRIAXONE SOD 1 GM/NS 50 ML 50 ML IV SCH ×2 (02:22→14:04)
[2020-07-15] MEDS: MIDAZOLAM HCL 5MG/ML 10ML VIAL 100 ML IV PRN ×4 (02:53→22:07)
[2020-07-15] MEDS: DEXTROSE 5% 1,000 ML IV SCH (05:16)
[2020-07-15 05:22] LABS: ALBUMIN 3.1 g/dL (3.5-5.0); ALBUMIN/GLOBULIN RATIO 0.9 (0.8-2.0); ANION GAP 18.3 mmol/L (8-16); CALCIUM 8.1 mg/dL (8.4-10.2); CREATININE, SERUM 1.46 mg/dL (0.72-1.25); MAGNESIUM 1.9 MG/DL (1.3-2.1); PHOSPHORUS 3.3 MG/DL (2.3-4.7); POTASSIUM 4.3 mmol/L (3.5-5.1)
[2020-07-15] MEDS: AMIODARONE HCL 200 MG TAB PO SCH (06:00)
[2020-07-15] MEDS: INSULIN REGULAR, HUMAN 100 UNIT/1 ML 3ML VIAL SQ SCH ×4 (06:00→23:28)
[2020-07-15] MEDS: FENTANYL 2000MCG/NS 250 250 ML IV PRN ×3 (06:51→19:30)
[2020-07-15] MEDS: FAMOTIDINE 20 MG/2 ML VIAL IV SCH ×2 (08:43→17:00)
[2020-07-15] MEDS: FUROSEMIDE INJ 10 MG/ML 4 ML VIAL IV SCH (08:43)
[2020-07-15] MEDS: AMPICILLIN SOD 500 MG in SODIUM CHLORIDE 0.9% 50ML 50 ML IV SCH (14:04)
[2020-07-15] MEDS: FUROSEMIDE INJ 100 MG in SODIUM CHLORIDE 0.9% 100 ML 90 ML IV SCH (15:45)
[2020-07-15] MEDS ORDERED: ROCURONIUM BROMIDE 250 MG in SODIUM CHLORIDE 0.9% 250ML 225 ML IV SCH (18:00)
[2020-07-15] MEDS: ROCURONIUM BROMIDE 1,250 MG in SODIUM CHLORIDE 0.9% 250ML 125 ML IV SCH (18:37)
[2020-07-15] MEDS: INSULIN GLARGINE 100 UNITS/ML VIAL SQ SCH (19:55)
[2020-07-15] MEDS ORDERED: ALBUMIN 25% 25GM 100ML 0.25 GM/ML BTL IV ONE (20:30)
[2020-07-15] MEDS: NOREPINEPHRINE INJ 4MG/4ML 8 MG in DEXTROSE 5% 250ML 250 ML IV PRN (21:00)
[2020-07-16] VITALS (80 sets, daily range): BP systolic 88–174; BP diastolic 37–69
[2020-07-16] MEDS: DEXTROSE 5% 1,000 ML IV SCH (00:16)
[2020-07-16] MEDS: FUROSEMIDE INJ 100 MG in SODIUM CHLORIDE 0.9% 100 ML 90 ML IV SCH ×3 (00:16→18:54)
[2020-07-16] MEDS: CEFTRIAXONE SOD 1 GM/NS 50 ML 50 ML IV SCH (01:15)
[2020-07-16] MEDS: AMPICILLIN SOD 500 MG in SODIUM CHLORIDE 0.9% 50ML 50 ML IV SCH ×2 (01:15→12:43)
[2020-07-16] MEDS ORDERED: ALBUMIN 25% 12.5GM 0.25 GM/ML BTL IV ONE (04:00)
[2020-07-16] MEDS ORDERED: SODIUM BICARBONATE 8.4% 50 ML VIAL IV STA (04:11)
[2020-07-16 04:14] LABS: ABG PH 7.08 (7.35-7.45)
[2020-07-16 04:15] LABS: ABG HCO3 28 mmol/L (22-26); ABG PCO2 96 mmHg (35-45); ABG PO2 58 mmHg (80-105); ABG TCO2 31
[2020-07-16] MEDS ORDERED: SODIUM BICARBONATE 8.4% SYRING 200 ML ONE (04:18)
[2020-07-16] MEDS ORDERED: DEXTROSE 5% 1,000 ML IV ONE (04:19)
[2020-07-16] MEDS: SODIUM BICARBONATE 8.4% SYRING 100 ML in DEXTROSE 5% 1,000 ML IV SCH ×2 (04:30→23:09)
[2020-07-16 04:31] LABS: BASOPHILS # (AUTO) 0.1 (0.0-0.1); BASOPHILS % 0.3 % (0.0-1.0); EOSINOPHILS % 0.1 % (0.0-6.0); HEMATOCRIT 26.7 % (38.2-49.6); HEMOGLOBIN 7.6 g/dL (14.0-18.0); LYMPHOCYTES # (AUTO) 1.1 (1.0-3.2); MEAN CORPUSCULAR HEMOGLOBIN 28.7 pg (28-32); MEAN CORPUSCULAR HGB CONC 28.5 g/dL (31-35); MEAN CORPUSCULAR VOLUME 100.8 fL (81-99); MONOCYTES # (AUTO) 1.4 (0.2-0.8); MONOCYTES % 5.2 % (4.4-11.3); NEUTROPHILS # (AUTO) 23.9 (2.1-6.9); NEUTROPHILS % 88.8 % (38.7-80.0); PLATELET COUNT 274 x10e3/uL (140-360); RED BLOOD COUNT 2.65 x10e6/uL (4.3-5.7); RED CELL DISTRIBUTION WIDTH 16.5 % (11.7-14.4)
[2020-07-16 04:46] LABS: ALBUMIN 3.2 g/dL (3.5-5.0); ALBUMIN/GLOBULIN RATIO 0.9 (0.8-2.0); ANION GAP 22.4 mmol/L (8-16); CALCIUM 8.2 mg/dL (8.4-10.2); CREATININE, SERUM 1.91 mg/dL (0.72-1.25); POTASSIUM 5.4 mmol/L (3.5-5.1)
[2020-07-16] MEDS: AMIODARONE HCL 200 MG TAB PO SCH (05:16)
[2020-07-16] MEDS: INSULIN REGULAR, HUMAN 100 UNIT/1 ML 3ML VIAL SQ SCH ×3 (05:47→17:24)
[2020-07-16 06:16] LABS: BAND NEUTROPHILS % (MANUAL) 6 %; LYMPHOCYTES % (MANUAL) 3 % (19-48); MONOCYTES % (MANUAL) 6 % (3.4-9.0); NEUTROPHILS % (MANUAL) 85 % (40-74)
[2020-07-16 06:17] LABS: PLATELET ESTIMATE ADEQUATE; PLATELET MORPHOLOGY COMMENT NORMAL
[2020-07-16 06:18] LABS: HYPOCHROMASIA SLIGHT
[2020-07-16] MEDS: NOREPINEPHRINE INJ 4MG/4ML 8 MG in DEXTROSE 5% 250ML 250 ML IV PRN ×3 (06:38→16:28)
[2020-07-16] MEDS ORDERED: VANCOMYCIN 1GM/NS 250 ML 250 ML IV ONE (08:15)
[2020-07-16 08:24] LABS: ABG PH 7.12 (7.35-7.45)
[2020-07-16 08:25] LABS: ABG HCO3 29 mmol/L (22-26); ABG PCO2 89 mmHg (35-45); ABG PO2 84 mmHg (80-105); ABG TCO2 32
[2020-07-16] MEDS: FAMOTIDINE 20 MG/2 ML VIAL IV SCH ×2 (08:53→16:00)
[2020-07-16] MEDS: MIDODRINE HCL 5 MG TABLET NG SCH ×3 (08:53→16:00)
[2020-07-16] MEDS: MEROPENEM 500MG/ NS 50ML 50 ML IV SCH ×2 (08:54→21:23)
[2020-07-16] MEDS: HEPARIN SOD (PORCINE) 5,000 UNIT/ML VIAL SC SCH ×2 (09:54→19:50)
[2020-07-16] MEDS: MIDAZOLAM HCL 5MG/ML 10ML VIAL 100 ML IV PRN ×3 (10:47→19:52)
[2020-07-16] MEDS ORDERED: MANNITOL 25% 12.5GM/50ML 100 ML ONE (11:30)
[2020-07-16] MEDS ORDERED: HEPARIN SOD (PORCINE) 1000 UNIT/ML SDV ONE (11:30)
[2020-07-16] MEDS: FENTANYL 2000MCG/NS 250 250 ML IV PRN ×2 (11:36→18:02)
[2020-07-16] MEDS ORDERED: MANNITOL 25% 12.5GM/50ML 50 ML ONE (11:57)
[2020-07-16] MEDS ORDERED: SODIUM CHLORIDE 0.9% 1000ML 2,000 ML IV PRN (12:15)
[2020-07-16] MEDS ORDERED: MANNITOL 25% 12.5GM/50 ML VIAL IV PRN (12:15)
[2020-07-16] MEDS ORDERED: HEPARIN SOD (PORCINE) 1000 UNIT/ML SDV IV PRN (12:15)
[2020-07-16 15:04] LABS: ABG HCO3 26 mmol/L (22-26); ABG PCO2 51 mmHg (35-45); ABG PH 7.31 (7.35-7.45); ABG PO2 85 mmHg (80-105); ABG TCO2 27
[2020-07-16] MEDS: FLUCONAZOLE 200 MG/100 ML 100 ML IV SCH (18:02)
[2020-07-16] MEDS: VANCOMYCIN 250MG/5ML ORAL SOLN PO SCH ×2 (18:02→23:09)
[2020-07-16] MEDS: ROCURONIUM BROMIDE 1,250 MG in SODIUM CHLORIDE 0.9% 250ML 125 ML IV SCH (19:40)
[2020-07-16] MEDS: INSULIN GLARGINE 100 UNITS/ML VIAL SQ SCH (19:51)
[2020-07-17] VITALS (58 sets, daily range): BP systolic 101–142; BP diastolic 41–76
[2020-07-17] MEDS: INSULIN REGULAR, HUMAN 100 UNIT/1 ML 3ML VIAL SQ SCH ×5 (00:12→23:51)
[2020-07-17] MEDS: MIDAZOLAM HCL 5MG/ML 10ML VIAL 100 ML IV PRN ×3 (00:12→22:45)
[2020-07-17] MEDS: FENTANYL 2000MCG/NS 250 250 ML IV PRN ×3 (00:13→21:00)
[2020-07-17] MEDS: NOREPINEPHRINE INJ 4MG/4ML 8 MG in DEXTROSE 5% 250ML 250 ML IV PRN ×2 (01:29→17:51)
[2020-07-17 04:57] LABS: BASOPHILS % 0.4 % (0.0-1.0); EOSINOPHILS # (AUTO) 0.1 (0.0-0.4); LYMPHOCYTES % 9.5 % (18.0-39.1); MEAN CORPUSCULAR HEMOGLOBIN 28.5 pg (28-32); MEAN CORPUSCULAR HGB CONC 30.6 g/dL (31-35); MEAN CORPUSCULAR VOLUME 93.2 fL (81-99); MONOCYTES # (AUTO) 0.8 (0.2-0.8); MONOCYTES % 7.2 % (4.4-11.3); NEUTROPHILS # (AUTO) 8.9 (2.1-6.9); NEUTROPHILS % 81.3 % (38.7-80.0); PLATELET COUNT 176 x10e3/uL (140-360); RED BLOOD COUNT 2.21 x10e6/uL (4.3-5.7); RED CELL DISTRIBUTION WIDTH 16.9 % (11.7-14.4)
[2020-07-17 05:02] LABS: HEMATOCRIT 20.6 % (38.2-49.6); HEMOGLOBIN 6.3 g/dL (14.0-18.0)
[2020-07-17 05:14] LABS: ALBUMIN 2.9 g/dL (3.5-5.0); ALBUMIN/GLOBULIN RATIO 0.9 (0.8-2.0); ANION GAP 20.8 mmol/L (8-16); CALCIUM 7.9 mg/dL (8.4-10.2); CREATININE, SERUM 1.83 mg/dL (0.72-1.25); PHOSPHORUS 3.7 MG/DL (2.3-4.7); POTASSIUM 3.8 mmol/L (3.5-5.1)
[2020-07-17] MEDS: VANCOMYCIN 250MG/5ML ORAL SOLN PO SCH ×4 (05:39→23:31)
[2020-07-17] MEDS: AMIODARONE HCL 200 MG TAB PO SCH (05:39)
[2020-07-17] MEDS: FUROSEMIDE INJ 100 MG in SODIUM CHLORIDE 0.9% 100 ML 90 ML IV SCH (05:41)
[2020-07-17 07:39] LABS: ABG HCO3 28 mmol/L (22-26); ABG PCO2 45 mmHg (35-45); ABG PO2 67 mmHg (80-105); ABG TCO2 29
[2020-07-17] MEDS ORDERED: SODIUM CHLORIDE 0.9% 1000ML 2,000 ML ONE (08:25)
[2020-07-17] MEDS ORDERED: ALBUMIN 25% 12.5GM 50ML 100 ML IV ONE (08:26)
[2020-07-17] MEDS ORDERED: HEPARIN SOD (PORCINE) 1000 UNIT/ML SDV IV PRN (08:30)
[2020-07-17] MEDS ORDERED: MANNITOL 25% 12.5GM/50 ML VIAL IV PRN (08:30)
[2020-07-17] MEDS ORDERED: SODIUM CHLORIDE 0.9% 250ML 250 ML IV ONE ×2 (09:00→11:00)
[2020-07-17] MEDS: MIDODRINE HCL 5 MG TABLET NG SCH ×3 (09:21→17:50)
[2020-07-17] MEDS: FAMOTIDINE 20 MG/2 ML VIAL IV SCH ×2 (09:21→17:50)
[2020-07-17] MEDS: HEPARIN SOD (PORCINE) 5,000 UNIT/ML VIAL SC SCH ×2 (09:28→20:10)
[2020-07-17] MEDS: MEROPENEM 500MG/ NS 50ML 50 ML IV SCH ×2 (13:07→20:10)
[2020-07-17 14:39] LABS: ABG HCO3 28 mmol/L (22-26); ABG PCO2 44 mmHg (35-45); ABG PH 7.42 (7.35-7.45); ABG PO2 62 mmHg (80-105); ABG TCO2 29
[2020-07-17] MEDS: FLUCONAZOLE 200 MG/100 ML 100 ML IV SCH (17:50)
[2020-07-17] MEDS: ROCURONIUM BROMIDE 1,250 MG in SODIUM CHLORIDE 0.9% 250ML 125 ML IV SCH (19:42)
[2020-07-17 20:09] LABS: ABG HCO3 30 mmol/L (22-26); ABG PCO2 58 mmHg (35-45); ABG PH 7.32 (7.35-7.45); ABG PO2 70 mmHg (80-105); ABG TCO2 32
[2020-07-17] MEDS: INSULIN GLARGINE 100 UNITS/ML VIAL SQ SCH (20:10)
[2020-07-18] VITALS (44 sets, daily range): BP systolic 78–155; BP diastolic 46–83
[2020-07-18] MEDS: FENTANYL 2000MCG/NS 250 250 ML IV PRN ×4 (04:50→17:07)
[2020-07-18] MEDS: MIDAZOLAM HCL 5MG/ML 10ML VIAL 100 ML IV PRN ×3 (05:00→23:23)
[2020-07-18 05:31] LABS: BASOPHILS # (AUTO) 0.1 (0.0-0.1); BASOPHILS % 0.5 % (0.0-1.0); EOSINOPHILS # (AUTO) 0.6 (0.0-0.4); EOSINOPHILS % 4.2 % (0.0-6.0); HEMATOCRIT 25.6 % (38.2-49.6); LYMPHOCYTES # (AUTO) 0.9 (1.0-3.2); LYMPHOCYTES % 6.2 % (18.0-39.1); MEAN CORPUSCULAR HEMOGLOBIN 29.2 pg (28-32); MEAN CORPUSCULAR HGB CONC 31.3 g/dL (31-35); MEAN CORPUSCULAR VOLUME 93.4 fL (81-99); MONOCYTES # (AUTO) 0.9 (0.2-0.8); MONOCYTES % 5.8 % (4.4-11.3); NEUTROPHILS # (AUTO) 12.3 (2.1-6.9); NEUTROPHILS % 82.3 % (38.7-80.0); PLATELET COUNT 194 x10e3/uL (140-360); RED BLOOD COUNT 2.74 x10e6/uL (4.3-5.7)
[2020-07-18 05:52] LABS: ALBUMIN 2.8 g/dL (3.5-5.0); ALBUMIN/GLOBULIN RATIO 0.8 (0.8-2.0); CALCIUM 7.8 mg/dL (8.4-10.2); CREATININE, SERUM 2.05 mg/dL (0.72-1.25)
[2020-07-18] MEDS: AMIODARONE HCL 200 MG TAB PO SCH (06:17)
[2020-07-18] MEDS: VANCOMYCIN 250MG/5ML ORAL SOLN PO SCH ×3 (06:17→17:08)
[2020-07-18] MEDS: INSULIN REGULAR, HUMAN 100 UNIT/1 ML 3ML VIAL SQ SCH ×2 (06:22→12:17)
[2020-07-18 07:30] LABS: ABG HCO3 28 mmol/L (22-26); ABG PCO2 61 mmHg (35-45); ABG PH 7.28 (7.35-7.45); ABG PO2 56 mmHg (80-105); ABG TCO2 30
[2020-07-18] MEDS: MIDODRINE HCL 5 MG TABLET NG SCH ×3 (08:44→16:19)
[2020-07-18] MEDS: FAMOTIDINE 20 MG/2 ML VIAL IV SCH ×2 (08:44→16:20)
[2020-07-18] MEDS: HEPARIN SOD (PORCINE) 5,000 UNIT/ML VIAL SC SCH ×2 (08:46→21:44)
[2020-07-18] MEDS: MEROPENEM 500MG/ NS 50ML 50 ML IV SCH ×2 (09:57→21:29)
[2020-07-18 15:06] LABS: ABG PCO2 104 mmHg (35-45); ABG PH 7.11 (7.35-7.45); ABG PO2 70 mmHg (80-105)
[2020-07-18 15:07] LABS: ABG HCO3 33 mmol/L (22-26); ABG TCO2 36
[2020-07-18] MEDS: FLUCONAZOLE 200 MG/100 ML 100 ML IV SCH (17:08)
[2020-07-18] MEDS: NOREPINEPHRINE INJ 4MG/4ML 8 MG in DEXTROSE 5% 250ML 250 ML IV PRN (17:10)
[2020-07-18] MEDS: ROCURONIUM BROMIDE 1,250 MG in SODIUM CHLORIDE 0.9% 250ML 125 ML IV SCH (17:37)
[2020-07-18 19:13] LABS: ABG PCO2 84 mmHg (35-45); ABG PH 7.19 (7.35-7.45)
[2020-07-18 19:14] LABS: ABG HCO3 32 mmol/L (22-26); ABG PO2 65 mmHg (80-105); ABG TCO2 35
[2020-07-18] MEDS: INSULIN GLARGINE 100 UNITS/ML VIAL SQ SCH (21:47)
[2020-07-19] VITALS (31 sets, daily range): BP systolic 88–156; BP diastolic 39–60
[2020-07-19] MEDS: VANCOMYCIN 250MG/5ML ORAL SOLN PO SCH ×4 (00:48→17:54)
[2020-07-19] MEDS ORDERED: NOREPINEPHRINE 8 MG/D5W 250 ML 250 ML ONE (03:56)
[2020-07-19 05:45] LABS: BASOPHILS # (AUTO) 0.1 (0.0-0.1); BASOPHILS % 0.4 % (0.0-1.0); EOSINOPHILS # (AUTO) 0.1 (0.0-0.4); EOSINOPHILS % 0.8 % (0.0-6.0); HEMATOCRIT 25.3 % (38.2-49.6); HEMOGLOBIN 7.6 g/dL (14.0-18.0); LYMPHOCYTES # (AUTO) 1.1 (1.0-3.2); LYMPHOCYTES % 7.2 % (18.0-39.1); MEAN CORPUSCULAR HEMOGLOBIN 28.3 pg (28-32); MEAN CORPUSCULAR VOLUME 94.1 fL (81-99); MONOCYTES # (AUTO) 1.4 (0.2-0.8); MONOCYTES % 9.4 % (4.4-11.3); NEUTROPHILS # (AUTO) 12.4 (2.1-6.9); NEUTROPHILS % 81.2 % (38.7-80.0); PLATELET COUNT 200 x10e3/uL (140-360); RED BLOOD COUNT 2.69 x10e6/uL (4.3-5.7); RED CELL DISTRIBUTION WIDTH 17.3 % (11.7-14.4)
[2020-07-19] MEDS: AMIODARONE HCL 200 MG TAB PO SCH (05:54)
[2020-07-19 05:58] LABS: ALBUMIN 2.9 g/dL (3.5-5.0); ALBUMIN/GLOBULIN RATIO 0.8 (0.8-2.0); ANION GAP 14.4 mmol/L (8-16); CREATININE, SERUM 2.2 mg/dL (0.72-1.25); PHOSPHORUS 4.6 MG/DL (2.3-4.7); POTASSIUM 4.4 mmol/L (3.5-5.1)
[2020-07-19] MEDS: FENTANYL 2000MCG/NS 250 250 ML IV PRN ×3 (07:21→22:00)
[2020-07-19] MEDS: MIDAZOLAM HCL 5MG/ML 10ML VIAL 100 ML IV PRN ×4 (07:22→23:07)
[2020-07-19 09:46] LABS: ABG PH 7.16 (7.35-7.45)
[2020-07-19 09:47] LABS: ABG HCO3 31 mmol/L (22-26); ABG PCO2 84 mmHg (35-45); ABG PO2 77 mmHg (80-105); ABG TCO2 33
[2020-07-19] MEDS: MIDODRINE HCL 5 MG TABLET NG SCH ×3 (09:48→16:55)
[2020-07-19] MEDS: FAMOTIDINE 20 MG/2 ML VIAL IV SCH ×2 (09:48→17:54)
[2020-07-19] MEDS: MEROPENEM 500MG/ NS 50ML 50 ML IV SCH ×2 (11:55→22:07)
[2020-07-19] MEDS: HEPARIN SOD (PORCINE) 5,000 UNIT/ML VIAL SC SCH ×2 (12:19→21:57)
[2020-07-19 15:51] LABS: ABG HCO3 30 mmol/L (22-26); ABG PCO2 68 mmHg (35-45); ABG PH 7.24 (7.35-7.45); ABG PO2 60 mmHg (80-105); ABG TCO2 31
[2020-07-19] MEDS: FLUCONAZOLE 200 MG/100 ML 100 ML IV SCH (21:23)
[2020-07-19] MEDS: INSULIN GLARGINE 100 UNITS/ML VIAL SQ SCH (21:29)
[2020-07-19] MEDS: ROCURONIUM BROMIDE 1,250 MG in SODIUM CHLORIDE 0.9% 250ML 125 ML IV SCH (21:32)
[2020-07-20] VITALS (29 sets, daily range): BP systolic 76–147; BP diastolic 41–74
[2020-07-20] MEDS ORDERED: NOREPINEPHRINE 8 MG/D5W 250 ML 250 ML ONE (00:17)
[2020-07-20] MEDS: VANCOMYCIN 250MG/5ML ORAL SOLN PO SCH ×4 (00:28→17:47)
[2020-07-20] MEDS: FENTANYL 2000MCG/NS 250 250 ML IV PRN ×3 (05:22→19:29)
[2020-07-20] MEDS: MIDAZOLAM HCL 5MG/ML 10ML VIAL 100 ML IV PRN ×4 (05:23→20:57)
[2020-07-20] MEDS: AMIODARONE HCL 200 MG TAB PO SCH (05:24)
[2020-07-20 08:18] LABS: ABG HCO3 27 mmol/L (22-26); ABG PCO2 73 mmHg (35-45); ABG PH 7.17 (7.35-7.45); ABG PO2 86 mmHg (80-105); ABG TCO2 29
[2020-07-20] MEDS: MIDODRINE HCL 5 MG TABLET NG SCH ×3 (09:17→16:56)
[2020-07-20] MEDS: FAMOTIDINE 20 MG/2 ML VIAL IV SCH ×2 (09:17→17:47)
[2020-07-20] MEDS: HEPARIN SOD (PORCINE) 5,000 UNIT/ML VIAL SC SCH ×2 (09:18→20:55)
[2020-07-20] MEDS: MEROPENEM 500MG/ NS 50ML 50 ML IV SCH ×2 (09:18→22:30)
[2020-07-20] MEDS ORDERED: ALBUMIN 25% 25GM 100ML 0.25 GM/ML BTL IV ONE (10:30)
[2020-07-20] MEDS ORDERED: ALBUMIN 25% 25GM 100ML 100 ML IV ONE (11:30)
[2020-07-20] MEDS: NOREPINEPHRINE INJ 4MG/4ML 8 MG in DEXTROSE 5% 250ML 250 ML IV PRN (11:56)
[2020-07-20 15:24] LABS: ANION GAP 18.7 mmol/L (8-16); CALCIUM 8.1 mg/dL (8.4-10.2); CREATININE, SERUM 2.69 mg/dL (0.72-1.25); POTASSIUM 4.7 mmol/L (3.5-5.1)
[2020-07-20 16:20] LABS: ABG HCO3 28 mmol/L (22-26); ABG PCO2 80 mmHg (35-45); ABG PH 7.16 (7.35-7.45); ABG PO2 125 mmHg (80-105)
[2020-07-20 16:21] LABS: ABG TCO2 31
[2020-07-20] MEDS: FLUCONAZOLE 200 MG/100 ML 100 ML IV SCH (17:47)
[2020-07-20] MEDS: ROCURONIUM BROMIDE 1,250 MG in SODIUM CHLORIDE 0.9% 250ML 125 ML IV SCH (18:15)
[2020-07-20] MEDS: INSULIN GLARGINE 100 UNITS/ML VIAL SQ SCH (21:00)
[2020-07-21] VITALS (28 sets, daily range): BP systolic 89–121; BP diastolic 42–64
[2020-07-21] MEDS: FENTANYL 2000MCG/NS 250 250 ML IV PRN ×3 (02:35→17:41)
[2020-07-21] MEDS: MIDAZOLAM HCL 5MG/ML 10ML VIAL 100 ML IV PRN ×4 (02:35→17:41)
[2020-07-21] MEDS: AMIODARONE HCL 200 MG TAB PO SCH (05:21)
[2020-07-21 05:49] LABS: BASOPHILS % 0.3 % (0.0-1.0); EOSINOPHILS # (AUTO) 0.1 (0.0-0.4); HEMATOCRIT 22.3 % (38.2-49.6); LYMPHOCYTES # (AUTO) 0.6 (1.0-3.2); LYMPHOCYTES % 8.2 % (18.0-39.1); MEAN CORPUSCULAR HEMOGLOBIN 28.5 pg (28-32); MEAN CORPUSCULAR HGB CONC 30.5 g/dL (31-35); MEAN CORPUSCULAR VOLUME 93.3 fL (81-99); MONOCYTES # (AUTO) 0.6 (0.2-0.8); MONOCYTES % 8.4 % (4.4-11.3); PLATELET COUNT 140 x10e3/uL (140-360); RED BLOOD COUNT 2.39 x10e6/uL (4.3-5.7); RED CELL DISTRIBUTION WIDTH 16.8 % (11.7-14.4)
[2020-07-21 05:56] LABS: HEMOGLOBIN 6.8 g/dL (14.0-18.0)
[2020-07-21 05:58] LABS: ALBUMIN 2.8 g/dL (3.5-5.0); ALBUMIN/GLOBULIN RATIO 0.8 (0.8-2.0); ANION GAP 17.6 mmol/L (8-16); CALCIUM 7.9 mg/dL (8.4-10.2); CREATININE, SERUM 2.81 mg/dL (0.72-1.25); POTASSIUM 4.6 mmol/L (3.5-5.1)
[2020-07-21] MEDS ORDERED: SODIUM CHLORIDE 0.9% 250ML 250 ML IV SCH (06:30)
[2020-07-21 08:08] LABS: ABG HCO3 25 mmol/L (22-26); ABG PCO2 61 mmHg (35-45); ABG PH 7.22 (7.35-7.45); ABG PO2 73 mmHg (80-105); ABG TCO2 27
[2020-07-21] MEDS: FAMOTIDINE 20 MG/2 ML VIAL IV SCH ×2 (08:10→17:40)
[2020-07-21] MEDS: MIDODRINE HCL 5 MG TABLET NG SCH ×3 (08:10→17:40)
[2020-07-21] MEDS: HEPARIN SOD (PORCINE) 5,000 UNIT/ML VIAL SC SCH ×2 (08:11→20:57)
[2020-07-21] MEDS: MEROPENEM 500MG/ NS 50ML 50 ML IV SCH ×2 (10:08→20:57)
[2020-07-21 14:57] LABS: BASOPHILS % 0.3 % (0.0-1.0); EOSINOPHILS # (AUTO) 0.1 (0.0-0.4); HEMATOCRIT 23.4 % (38.2-49.6); HEMOGLOBIN 7.3 g/dL (14.0-18.0); LYMPHOCYTES # (AUTO) 0.7 (1.0-3.2); LYMPHOCYTES % 11.6 % (18.0-39.1); MEAN CORPUSCULAR HEMOGLOBIN 28.9 pg (28-32); MEAN CORPUSCULAR HGB CONC 31.2 g/dL (31-35); MEAN CORPUSCULAR VOLUME 92.5 fL (81-99); MONOCYTES # (AUTO) 0.4 (0.2-0.8); MONOCYTES % 6.6 % (4.4-11.3); NEUTROPHILS # (AUTO) 4.7 (2.1-6.9); NEUTROPHILS % 77.5 % (38.7-80.0); PLATELET COUNT 137 x10e3/uL (140-360); RED BLOOD COUNT 2.53 x10e6/uL (4.3-5.7)
[2020-07-21] MEDS: FLUCONAZOLE 200 MG/100 ML 100 ML IV SCH (17:40)
[2020-07-21] MEDS: ROCURONIUM BROMIDE 1,250 MG in SODIUM CHLORIDE 0.9% 250ML 125 ML IV SCH (17:40)
[2020-07-21] MEDS: INSULIN GLARGINE 100 UNITS/ML VIAL SQ SCH (20:58)
[2020-07-22] VITALS (27 sets, daily range): BP systolic 90–139; BP diastolic 42–57
[2020-07-22] MEDS: FENTANYL 2000MCG/NS 250 250 ML IV PRN (01:10)
[2020-07-22] MEDS: MIDAZOLAM HCL 5MG/ML 10ML VIAL 100 ML IV PRN (01:11)
[2020-07-22] MEDS: AMIODARONE HCL 200 MG TAB PO SCH (04:50)
[2020-07-22 05:14] LABS: BASOPHILS % 0.4 % (0.0-1.0); EOSINOPHILS # (AUTO) 0.2 (0.0-0.4); EOSINOPHILS % 2.1 % (0.0-6.0); HEMATOCRIT 24.9 % (38.2-49.6); HEMOGLOBIN 7.6 g/dL (14.0-18.0); LYMPHOCYTES # (AUTO) 0.7 (1.0-3.2); LYMPHOCYTES % 9.1 % (18.0-39.1); MEAN CORPUSCULAR HEMOGLOBIN 28.6 pg (28-32); MEAN CORPUSCULAR HGB CONC 30.5 g/dL (31-35); MEAN CORPUSCULAR VOLUME 93.6 fL (81-99); MONOCYTES # (AUTO) 0.7 (0.2-0.8); MONOCYTES % 8.9 % (4.4-11.3); NEUTROPHILS # (AUTO) 6.2 (2.1-6.9); NEUTROPHILS % 77.4 % (38.7-80.0); PLATELET COUNT 161 x10e3/uL (140-360); RED BLOOD COUNT 2.66 x10e6/uL (4.3-5.7); RED CELL DISTRIBUTION WIDTH 17.3 % (11.7-14.4)
[2020-07-22 05:33] LABS: ALBUMIN 2.9 g/dL (3.5-5.0); ALBUMIN/GLOBULIN RATIO 0.8 (0.8-2.0); ANION GAP 17.5 mmol/L (8-16); CALCIUM 7.9 mg/dL (8.4-10.2); CREATININE, SERUM 2.45 mg/dL (0.72-1.25); POTASSIUM 4.5 mmol/L (3.5-5.1)
[2020-07-22 07:35] LABS: ABG HCO3 27 mmol/L (22-26); ABG PCO2 70 mmHg (35-45); ABG PO2 90 mmHg (80-105); ABG TCO2 29
[2020-07-22] MEDS: FENTANYL 2000MCG/NS 250 250 ML IV SCH ×3 (09:07→21:19)
[2020-07-22] MEDS: MIDODRINE HCL 5 MG TABLET NG SCH ×3 (09:07→16:05)
[2020-07-22] MEDS: MIDAZOLAM HCL 5MG/ML 10ML VIAL 100 ML IV SCH ×3 (09:08→21:19)
[2020-07-22] MEDS: FAMOTIDINE 20 MG/2 ML VIAL IV SCH ×2 (09:09→16:05)
[2020-07-22] MEDS: HEPARIN SOD (PORCINE) 5,000 UNIT/ML VIAL SC SCH ×2 (09:10→21:18)
[2020-07-22] MEDS: MEROPENEM 500MG/ NS 50ML 50 ML IV SCH ×2 (09:10→21:19)
[2020-07-22 15:31] LABS: ABG HCO3 24 mmol/L (22-26); ABG PCO2 62 mmHg (35-45); ABG PH 7.19 (7.35-7.45); ABG PO2 65 mmHg (80-105); ABG TCO2 26
[2020-07-22] MEDS: ROCURONIUM BROMIDE 1,250 MG in SODIUM CHLORIDE 0.9% 250ML 125 ML IV SCH (16:05)
[2020-07-22] MEDS: FLUCONAZOLE 200 MG/100 ML 100 ML IV SCH (18:39)
[2020-07-22 19:33] LABS: ABG PH 7.16 (7.35-7.45)
[2020-07-22 19:34] LABS: ABG HCO3 24 mmol/L (22-26); ABG PCO2 67 mmHg (35-45); ABG PO2 58 mmHg (80-105); ABG TCO2 26
[2020-07-22] MEDS ORDERED: SODIUM CHLORIDE 0.9% 250ML 250 ML ONE (20:48)
[2020-07-22] MEDS: INSULIN GLARGINE 100 UNITS/ML VIAL SQ SCH (21:18)
[2020-07-23] VITALS (27 sets, daily range): BP systolic 76–120; BP diastolic 35–51
[2020-07-23 05:01] LABS: BASOPHILS % 0.2 % (0.0-1.0); EOSINOPHILS % 0.2 % (0.0-6.0); HEMATOCRIT 24.4 % (38.2-49.6); HEMOGLOBIN 7.5 g/dL (14.0-18.0); LYMPHOCYTES # (AUTO) 1.1 (1.0-3.2); LYMPHOCYTES % 8.6 % (18.0-39.1); MEAN CORPUSCULAR HEMOGLOBIN 28.6 pg (28-32); MEAN CORPUSCULAR HGB CONC 30.7 g/dL (31-35); MEAN CORPUSCULAR VOLUME 93.1 fL (81-99); MONOCYTES # (AUTO) 0.8 (0.2-0.8); MONOCYTES % 6.5 % (4.4-11.3); NEUTROPHILS # (AUTO) 10.3 (2.1-6.9); NEUTROPHILS % 82.7 % (38.7-80.0); PLATELET COUNT 171 x10e3/uL (140-360); RED BLOOD COUNT 2.62 x10e6/uL (4.3-5.7); RED CELL DISTRIBUTION WIDTH 17.6 % (11.7-14.4)
[2020-07-23] MEDS: FENTANYL 2000MCG/NS 250 250 ML IV SCH ×3 (05:08→22:21)
[2020-07-23] MEDS: MIDAZOLAM HCL 5MG/ML 10ML VIAL 100 ML IV SCH ×3 (05:09→18:19)
[2020-07-23 05:29] LABS: ALBUMIN/GLOBULIN RATIO 0.9 (0.8-2.0); ANION GAP 17.6 mmol/L (8-16); CREATININE, SERUM 2.81 mg/dL (0.72-1.25); POTASSIUM 4.6 mmol/L (3.5-5.1)
[2020-07-23] MEDS: AMIODARONE HCL 200 MG TAB PO SCH (05:31)
[2020-07-23] MEDS: MIDODRINE HCL 5 MG TABLET NG SCH ×3 (07:25→18:21)
[2020-07-23] MEDS: ROCURONIUM BROMIDE 1,250 MG in SODIUM CHLORIDE 0.9% 250ML 125 ML IV SCH (11:00)
[2020-07-23] MEDS: FAMOTIDINE 20 MG/2 ML VIAL IV SCH ×2 (11:21→20:50)
[2020-07-23] MEDS: MEROPENEM 500MG/ NS 50ML 50 ML IV SCH ×2 (12:00→22:18)
[2020-07-23] MEDS: ALBUMIN 25% 12.5GM 0.25 GM/ML BTL IV PRN (13:30)
[2020-07-23] MEDS ORDERED: NOREPINEPHRINE 8 MG/D5W 250 ML 250 ML ONE (16:43)
[2020-07-23] MEDS ORDERED: AMIODARONE 900MG 500 ML IV ONE (16:50)
[2020-07-23] MEDS: AMIODARONE 900MG 500 ML IV SCH ×2 (18:00→22:18)
[2020-07-23] MEDS ORDERED: AMIODARONE HCL 150 MG/100 ML BAG IV ONE (18:00)
[2020-07-23] MEDS ORDERED: AMIODARONE 900MG 500 ML IV SCH (18:00)
[2020-07-23] MEDS ORDERED: AMIODARONE HCL 100 ML IV ONE (18:15)
[2020-07-23] MEDS: FLUCONAZOLE 200 MG/100 ML 100 ML IV SCH (18:20)
[2020-07-23 19:37] LABS: ABG HCO3 24 mmol/L (22-26); ABG PCO2 54 mmHg (35-45); ABG PH 7.25 (7.35-7.45); ABG PO2 59 mmHg (80-105); ABG TCO2 26
[2020-07-23] MEDS: ACETAMINOPHEN 325 MG TAB PO PRN (20:50)
[2020-07-23] MEDS: INSULIN GLARGINE 100 UNITS/ML VIAL SQ SCH (22:20)
[2020-07-23] MEDS ORDERED: SODIUM CHLORIDE 0.9% 250ML 250 ML ONE (22:39)
[2020-07-23] MEDS ORDERED: PHENYLEPHRINE HCL 1% 10 MG/ML VIAL ONE (23:12)
[2020-07-23] MEDS: PHENYLEPHRINE 10MG/ML VIAL 40 MG in DEXTROSE 5% 250ML 250 ML IV PRN (23:14)
[2020-07-24] VITALS (23 sets, daily range): BP systolic 92–139; BP diastolic 39–54
[2020-07-24] MEDS ORDERED: AMIODARONE 900MG 500 ML IV SCH (00:15)
[2020-07-24] MEDS ORDERED: SODIUM CHLORIDE 0.9% 250ML 250 ML ONE ×2 (00:38→02:14)
[2020-07-24] MEDS: MIDAZOLAM HCL 5MG/ML 10ML VIAL 100 ML IV SCH ×3 (00:45→13:53)
[2020-07-24] MEDS ORDERED: NOREPINEPHRINE 8 MG/D5W 250 ML 250 ML ONE ×2 (02:13→08:29)
[2020-07-24] MEDS ORDERED: PHENYLEPHRINE HCL 1% 10 MG/ML VIAL ONE (02:17)
[2020-07-24] MEDS: PHENYLEPHRINE 10MG/ML VIAL 40 MG in DEXTROSE 5% 250ML 250 ML IV PRN (02:32)
[2020-07-24] MEDS ORDERED: NOREPINEPHRINE INJ 4MG/4ML 8 MG in DEXTROSE 5% 250ML 250 ML IV PRN (02:45)
[2020-07-24] MEDS: FENTANYL 2000MCG/NS 250 250 ML IV SCH ×2 (03:35→11:04)
[2020-07-24 04:29] LABS: BASOPHILS # (AUTO) 0.1 (0.0-0.1); BASOPHILS % 0.2 % (0.0-1.0); EOSINOPHILS # (AUTO) 0.1 (0.0-0.4); EOSINOPHILS % 0.2 % (0.0-6.0); HEMATOCRIT 28.1 % (38.2-49.6); HEMOGLOBIN 8.4 g/dL (14.0-18.0); LYMPHOCYTES # (AUTO) 2.2 (1.0-3.2); LYMPHOCYTES % 6.7 % (18.0-39.1); MEAN CORPUSCULAR HEMOGLOBIN 28.7 pg (28-32); MEAN CORPUSCULAR HGB CONC 29.9 g/dL (31-35); MEAN CORPUSCULAR VOLUME 95.9 fL (81-99); MONOCYTES # (AUTO) 2.5 (0.2-0.8); MONOCYTES % 7.6 % (4.4-11.3); NEUTROPHILS # (AUTO) 25.6 (2.1-6.9); NEUTROPHILS % 78.3 % (38.7-80.0); PLATELET COUNT 334 x10e3/uL (140-360); RED BLOOD COUNT 2.93 x10e6/uL (4.3-5.7); RED CELL DISTRIBUTION WIDTH 18.5 % (11.7-14.4)
[2020-07-24 04:47] LABS: ALBUMIN 3.3 g/dL (3.5-5.0); ALBUMIN/GLOBULIN RATIO 0.9 (0.8-2.0); ANION GAP 19.2 mmol/L (8-16); CALCIUM 8.1 mg/dL (8.4-10.2); CREATININE, SERUM 2.12 mg/dL (0.72-1.25); POTASSIUM 4.2 mmol/L (3.5-5.1)
[2020-07-24] MEDS: MIDODRINE HCL 5 MG TABLET NG SCH ×3 (07:52→16:00)
[2020-07-24] MEDS: FAMOTIDINE 20 MG/2 ML VIAL IV SCH ×2 (07:52→21:45)
[2020-07-24] MEDS: ALBUMIN 25% 12.5GM 0.25 GM/ML BTL IV PRN ×2 (08:00→15:33)
[2020-07-24] MEDS ORDERED: AMIODARONE HCL 200 MG TAB PO SCH ×2 (09:00→18:00)
[2020-07-24 09:13] LABS: ABG HCO3 24 mmol/L (22-26); ABG PCO2 82 mmHg (35-45); ABG PH 7.07 (7.35-7.45); ABG PO2 69 mmHg (80-105); ABG TCO2 26
[2020-07-24] MEDS: MEROPENEM 500MG/ NS 50ML 50 ML IV SCH ×2 (11:03→22:00)
[2020-07-24 11:06] LABS: BAND NEUTROPHILS % (MANUAL) 8 %; LYMPHOCYTES % (MANUAL) 9 % (19-48); MONOCYTES % (MANUAL) 8 % (3.4-9.0); NEUTROPHILS % (MANUAL) 75 % (40-74)
[2020-07-24 11:07] LABS: GIANT PLATELETS FEW; NUCLEATED RED BLOOD CELLS 2; PLATELET ESTIMATE ADEQUATE
[2020-07-24 11:08] LABS: PLATELET MORPHOLOGY COMMENT FEW LARGE; POLYCHROMASIA FEW; RBC MORPHOLOGY COMMENT ABNORMAL
[2020-07-24] MEDS ORDERED: SODIUM BICARBONATE 8.4% INJ 50 ML SYR IV NR ×3 (11:57→13:00)
[2020-07-24] MEDS: SODIUM BICARBONATE 8.4% 150 ML in DEXTROSE 5% 1,000 ML IV SCH (14:00)
[2020-07-24] MEDS ORDERED: FLUCONAZOLE 200 MG/100 ML 100 ML IV SCH (14:00)
[2020-07-24] MEDS: NOREPINEPHRINE INJ 4MG/4ML 16 MG in DEXTROSE 5% 250ML 250 ML IV PRN (15:33)
[2020-07-24] MEDS: VASOPRESSIN 60 UNIT in DEXTROSE 5% 50ML 57 ML IV SCH (15:45)
[2020-07-24] MEDS ORDERED: SODIUM BICARBONATE 8.4% INJ 50 ML SYR IV STA ×2 (17:51→18:38)
[2020-07-24] MEDS: FLUCONAZOLE 200 MG/100 ML 100 ML IV SCH (18:12)
[2020-07-24] MEDS: VANCOMYCIN 250MG/5ML ORAL SOLN PO SCH (18:15)
[2020-07-24] MEDS: ROCURONIUM BROMIDE 1,250 MG in SODIUM CHLORIDE 0.9% 250ML 125 ML IV SCH (18:15)
[2020-07-24 18:26] LABS: ABG HCO3 25 mmol/L (22-26); ABG PCO2 98 mmHg (35-45); ABG PH 7.02 (7.35-7.45); ABG PO2 67 mmHg (80-105); ABG TCO2 28
[2020-07-24] MEDS ORDERED: SODIUM BICARBONATE 8.4% SYRING 100 ML ONE (18:56)
[2020-07-24 20:23] LABS: ABG HCO3 29 mmol/L (22-26); ABG PCO2 95 mmHg (35-45); ABG PO2 61 mmHg (80-105); ABG TCO2 31
[2020-07-24] MEDS: BALSAM PERU/CASTOR OIL 60 GM OINT...G. TP SCH (21:15)
[2020-07-24] MEDS: AMIODARONE HCL 200 MG TAB PO SCH (21:45)
[2020-07-24] MEDS: INSULIN GLARGINE 100 UNITS/ML VIAL SQ SCH (21:59)
[2020-07-25] VITALS (24 sets, daily range): BP systolic 102–148; BP diastolic 37–62
[2020-07-25] MEDS: VANCOMYCIN 250MG/5ML ORAL SOLN PO SCH ×5 (01:01→23:30)
[2020-07-25 05:30] LABS: BASOPHILS # (AUTO) 0.1 (0.0-0.1); BASOPHILS % 0.5 % (0.0-1.0); EOSINOPHILS % 0.2 % (0.0-6.0); HEMATOCRIT 26.2 % (38.2-49.6); HEMOGLOBIN 8.2 g/dL (14.0-18.0); LYMPHOCYTES # (AUTO) 1.5 (1.0-3.2); LYMPHOCYTES % 7.4 % (18.0-39.1); MEAN CORPUSCULAR HEMOGLOBIN 30.5 pg (28-32); MEAN CORPUSCULAR HGB CONC 31.3 g/dL (31-35); MEAN CORPUSCULAR VOLUME 97.4 fL (81-99); MONOCYTES # (AUTO) 1.3 (0.2-0.8); MONOCYTES % 6.2 % (4.4-11.3); NEUTROPHILS # (AUTO) 16.7 (2.1-6.9); NEUTROPHILS % 81.5 % (38.7-80.0); PLATELET COUNT 247 x10e3/uL (140-360); RED BLOOD COUNT 2.69 x10e6/uL (4.3-5.7); RED CELL DISTRIBUTION WIDTH 18.8 % (11.7-14.4)
[2020-07-25 05:57] LABS: ALBUMIN 3.5 g/dL (3.5-5.0); ALBUMIN/GLOBULIN RATIO 1.1 (0.8-2.0); ANION GAP 20.3 mmol/L (8-16); CALCIUM 7.9 mg/dL (8.4-10.2); CREATININE, SERUM 2.45 mg/dL (0.72-1.25); POTASSIUM 4.3 mmol/L (3.5-5.1)
[2020-07-25] MEDS: NOREPINEPHRINE INJ 4MG/4ML 16 MG in DEXTROSE 5% 250ML 250 ML IV PRN ×2 (08:00→21:00)
[2020-07-25] MEDS: MIDODRINE HCL 5 MG TABLET NG SCH ×3 (08:02→17:19)
[2020-07-25] MEDS: FAMOTIDINE 20 MG/2 ML VIAL IV SCH ×2 (08:03→21:30)
[2020-07-25] MEDS: AMIODARONE HCL 200 MG TAB PO SCH ×3 (08:03→21:30)
[2020-07-25] MEDS: MIDAZOLAM HCL 5MG/ML 10ML VIAL 100 ML IV SCH (08:04)
[2020-07-25 10:07] LABS: ABG HCO3 27 mmol/L (22-26); ABG PCO2 74 mmHg (35-45); ABG PH 7.18 (7.35-7.45); ABG PO2 52 mmHg (80-105); ABG TCO2 30
[2020-07-25] MEDS ORDERED: HEPARIN SOD (PORCINE) 1000 UNIT/ML SDV ONE (12:56)
[2020-07-25] MEDS ORDERED: HEPARIN SOD (PORCINE) 1000 UNIT/ML 10ML MDV IV PRN ×2 (13:00→14:15)
[2020-07-25] MEDS: MEROPENEM 500MG/ NS 50ML 50 ML IV SCH (13:50)
[2020-07-25] MEDS: VASOPRESSIN 60 UNIT in DEXTROSE 5% 50ML 57 ML IV SCH ×2 (15:45→20:20)
[2020-07-25] MEDS: BALSAM PERU/CASTOR OIL 60 GM OINT...G. TP SCH ×2 (16:05→21:00)
[2020-07-25] MEDS: SODIUM BICARBONATE 8.4% 150 ML in DEXTROSE 5% 1,000 ML IV SCH (16:22)
[2020-07-25] MEDS ORDERED: AMIODARONE HCL 900 MG in DEXTROSE 5% 500ML 500 ML IV SCH (17:15)
[2020-07-25] MEDS: FLUCONAZOLE 200 MG/100 ML 100 ML IV SCH (17:19)
[2020-07-25] MEDS: FENTANYL 2000MCG/NS 250 250 ML IV SCH (17:21)
[2020-07-25 17:22] LABS: ABG PH 7.21 (7.35-7.45)
[2020-07-25 17:23] LABS: ABG HCO3 26 mmol/L (22-26); ABG PCO2 67 mmHg (35-45); ABG PO2 38 mmHg (80-105); ABG TCO2 28
[2020-07-25] MEDS: ROCURONIUM BROMIDE 1,250 MG in SODIUM CHLORIDE 0.9% 250ML 125 ML IV SCH (18:15)
[2020-07-25] MEDS: INSULIN GLARGINE 100 UNITS/ML VIAL SQ SCH (21:55)
[2020-07-26] VITALS (14 sets, daily range): BP systolic 110–138; BP diastolic 41–49
[2020-07-26] MEDS: MEROPENEM 500MG/ NS 50ML 50 ML IV SCH (01:30)
[2020-07-26] MEDS: NOREPINEPHRINE INJ 4MG/4ML 16 MG in DEXTROSE 5% 250ML 250 ML IV PRN (05:15)
[2020-07-26] MEDS: VANCOMYCIN 250MG/5ML ORAL SOLN PO SCH ×2 (05:45→11:16)
[2020-07-26 06:11] LABS: BASOPHILS # (AUTO) 0.2 (0.0-0.1); BASOPHILS % 0.7 % (0.0-1.0); EOSINOPHILS % 0.2 % (0.0-6.0); HEMOGLOBIN 7.8 g/dL (14.0-18.0); LYMPHOCYTES # (AUTO) 1.4 (1.0-3.2); LYMPHOCYTES % 5.5 % (18.0-39.1); MEAN CORPUSCULAR HEMOGLOBIN 30.4 pg (28-32); MEAN CORPUSCULAR HGB CONC 31.2 g/dL (31-35); MEAN CORPUSCULAR VOLUME 97.3 fL (81-99); MONOCYTES # (AUTO) 1.3 (0.2-0.8); MONOCYTES % 5.2 % (4.4-11.3); NEUTROPHILS # (AUTO) 20.6 (2.1-6.9); NEUTROPHILS % 84.3 % (38.7-80.0); PLATELET COUNT 204 x10e3/uL (140-360); RED BLOOD COUNT 2.57 x10e6/uL (4.3-5.7); RED CELL DISTRIBUTION WIDTH 18.8 % (11.7-14.4)
[2020-07-26 06:38] LABS: ALBUMIN 3.4 g/dL (3.5-5.0); ALBUMIN/GLOBULIN RATIO 1.1 (0.8-2.0); ANION GAP 18.1 mmol/L (8-16); CALCIUM 7.7 mg/dL (8.4-10.2); CREATININE, SERUM 2.69 mg/dL (0.72-1.25); POTASSIUM 4.1 mmol/L (3.5-5.1)
[2020-07-26 07:41] LABS: ABG HCO3 28 mmol/L (22-26); ABG PCO2 81 mmHg (35-45); ABG PH 7.15 (7.35-7.45); ABG PO2 51 mmHg (80-105); ABG TCO2 31
[2020-07-26] MEDS ORDERED: HEPARIN SOD (PORCINE) 1000 UNIT/ML SDV ONE (08:36)
[2020-07-26] MEDS: BALSAM PERU/CASTOR OIL 60 GM OINT...G. TP SCH (08:56)
[2020-07-26] MEDS: MIDODRINE HCL 5 MG TABLET NG SCH ×2 (08:56→11:16)
[2020-07-26] MEDS: FAMOTIDINE 20 MG/2 ML VIAL IV SCH (08:56)
[2020-07-26] MEDS: AMIODARONE HCL 200 MG TAB PO SCH (08:56)
[2020-07-26] MEDS: FENTANYL 2000MCG/NS 250 250 ML IV SCH (10:24)
[2020-07-26] MEDS: MIDAZOLAM HCL 5MG/ML 10ML VIAL 100 ML IV SCH (12:37)
== END 2020-07-26 20:16 | disposition expired | DRG 870 ==
LOC: ER 15:15 → ERHOLD 16:10 → COVIDICU 17:49 → ICU 06-30 02:26 → COVIDICU 07-11 12:10 → ICU 07-20 01:06
PROVIDERS: ADMIT Internal Medicine; ATTEND Internal Medicine
PROC: 0BH17EZ Insertion of Endotracheal Airway into Trachea, Via Natural or Artificial Opening (ICD-10-PCS; principal; 2020-06-13)
PROC: 5A1955Z Respiratory Ventilation, Greater than 96 Consecutive Hours (ICD-10-PCS; 2020-06-13)
PROC: 02HV33Z Insertion of Infusion Device into Superior Vena Cava, Percutaneous Approach (ICD-10-PCS; 2020-06-13)
PROC: 5A1D70Z Performance of Urinary Filtration, Intermittent, Less than 6 Hours Per Day (ICD-10-PCS; 2020-06-15)
PROC: 30243N1 Transfusion of Nonautologous Red Blood Cells into Central Vein, Percutaneous Approach (ICD-10-PCS; 2020-06-29)
PROC: 02HV33Z Insertion of Infusion Device into Superior Vena Cava, Percutaneous Approach (ICD-10-PCS; 2020-07-08)
PROC: 03HY32Z Insertion of Monitoring Device into Upper Artery, Percutaneous Approach (ICD-10-PCS; 2020-07-09)
PROC: 02HV33Z Insertion of Infusion Device into Superior Vena Cava, Percutaneous Approach (ICD-10-PCS; 2020-07-16)
DX: A41.9 Sepsis, unspecified organism (principal); U07.1 COVID-19; J12.9 Viral pneumonia, unspecified; J96.00 Acute respiratory failure, unspecified whether with hypoxia or hypercapnia; R65.21 Severe sepsis with septic shock; N17.0 Acute kidney failure with tubular necrosis; J15.1 Pneumonia due to Pseudomonas; N17.9 Acute kidney failure, unspecified; E87.0 Hyperosmolality and hypernatremia; E87.4 Mixed disorder of acid-base balance; K76.6 Portal hypertension; E11.65 Type 2 diabetes mellitus with hyperglycemia; I10 Essential (primary) hypertension; I48.0 Paroxysmal atrial fibrillation; D73.9 Disease of spleen, unspecified; D63.8 Anemia in other chronic diseases classified elsewhere; E83.51 Hypocalcemia; I25.10 Atherosclerotic heart disease of native coronary artery without angina pectoris; D69.6 Thrombocytopenia, unspecified; K74.60 Unspecified cirrhosis of liver; D50.0 Iron deficiency anemia secondary to blood loss (chronic); Z95.1 Presence of aortocoronary bypass graft; E87.6 Hypokalemia; E88.09 Other disorders of plasma-protein metabolism, not elsewhere classified; E87.5 Hyperkalemia; Z66 Do not resuscitate; D72.823 Leukemoid reaction
CPT/HCPCS: 36415; 36569; 36600; 71045; 71260; 74018; 74177; 76770; 80048; 80053; 80061; 81001; 82150; 82270; 82550; 82553; 82570; 82805; 82948; 83036; 83605; 83690; 83735; 83880; 84100; 84156; 84300; 84484; 85025; 85610; 85730; 86022; 86704; 86706; 86850; 86900; 86920; 87040; 87070; 87071; 87086; 87186; 87205; 87340; 90962; 93005; 93306; 94002; 94003; 96372; 99251; 99284; J0330; J0456; J0610; J0696; J1100; J1450; J1630; J1644; J1650; J1815; J1817; J1940; J2150; J2250; J2354; J2370; J3370; J3480; J3486; J7030; J7040; J7050; J7060; J7070; J7799; P9016; P9047; Q9967; U0002